=== PATIENT | male | born 1955 | race Caucasian/White ===

== ENCOUNTER → 2020-02-17 13:36 | Outpatient (BNVA) | payer MEDICARE, MEDICAID, SELFPAY | PROVIDERS: Family Provider Family Medicine; Referring Provider Nurse Practitioner Family; Visit Provider Urology | DX: R97.20 Elevated prostate specific antigen [PSA] (principal); R32 Unspecified urinary incontinence; Z80.42 Family history of malignant neoplasm of prostate | CPT/HCPCS: 81001; 84153 ==

== ENCOUNTER 2020-05-09 13:59 | Outpatient (CLI) | payer MEDICARE, MEDICAID, SELFPAY ==
--- NOTE | 2020-05-09 14:09 | USCV_ITS ---
LuDariusz Age: 64 Gender: M : 1955 Exam Date: 05/09/2020 14:00 Ordering Phys: Unruly Hernandez NP Technologist: [place] [facility] [place]ication: PVD RIGHT LEFT Brachial 152.00 mmHg Brachial 121.00 mmHg Pressure (mmHg) Waveform Pressure (mmHg) Waveform 118.00 PHILOSOPHY FACULTY MEMBER 126.00 114.00 DPA 134.00 0.78 Ankle/Brachial Index 0.88 88.00 Pre-Exercise Toe Pressure 96.00 0.58 Pre-Exercise Toe/Brachial Index 0.63 FINDINGS Diminished resting ABIs and TBIs bilaterally CONCLUSIONS Abnormal resting ABIs and TBIs bilaterally, suggestive of mild to moderate peripheral artery disease Dr Marylu Barroso MD FAC (Electronically Signed) Final Date: 10 May 2020 14:01 S
== END 2020-05-09 14:00 | disposition home or self-care (01) ==
LOC: US 14:00
PROVIDERS: Family Provider Family Medicine; Visit Provider Nurse Practitioner Family
DX: I73.9 Peripheral vascular disease, unspecified (principal)
CPT/HCPCS: 93922

== ENCOUNTER 2020-10-04 09:20 | Outpatient (CLI) | payer MEDICARE, MEDICAID, SELFPAY ==
--- NOTE | 2020-10-04 09:30 | FL_ITS ---
WS: [id number] Exam: FL barium swallow modified [id number] Date/Time of Exam: 10/04/2020 10:30 AM Reason For Exam: Other dysphagia Fluoroscopy time: 2.5 minutes Modified barium swallow was performed in conjunction with the speech therapy department. Swallowing function at the level of oropharynx was normal. The patient tolerated thin liquid, pudding consistency and solid barium mixture foodstuffs without evidence of aspiration or significant penetr ation. There was spasm of the mid and lower esophagus noted. Barium passed into the stomach without obstruction. FL/FL barium swallow modifd 91070 IMPRESSION: 1. Swallowing function was unremarkable at the level of the oropharynx. There w as no indication of aspiration or penetration into the laryngeal inlet. 2. Spasm of the mid and lower esophagus.
== END 2020-10-04 09:21 | disposition home or self-care (01) ==
LOC: RAD 09:26
PROVIDERS: PCP Nurse Practitioner Family; Visit Provider Specialist
DX: R13.10 Dysphagia, unspecified (principal)
CPT/HCPCS: 74230; 92611

== ENCOUNTER 2020-10-05 07:50 | Outpatient (CLI) | payer MEDICARE, MEDICAID, SELFPAY ==
--- NOTE | 2020-10-05 08:11 | FL_ITS ---
WS: [id number] ESOPHAGRAM TECHNIQUE: Double contrast examination was performed with thin and thick barium. Upright and GOMES imag es were obtained. CLINICAL INFORMATION: DYSPHAGIA COMPARISON: None. FINDINGS: Swallowing: Early spillage is noted with pooling the vallecula. No mohan aspiration. Small amount of penetration with thin liquids. Esophagus: No stricture or mass. Moderate esophageal dysmotility in the mid and distal esophagus with some delayed emptying. No significant hiatal hernia. Gastroesophageal reflux: Moderate reflux is visualized to the mid and upper esophagus on the supine i maging. Discomfort with the barium tablet swallowing although no significant delay in transit Fluoroscopy time: 3.4 minutes. FL/FL barium swallow 40571 IMPRESSION: 1. Early spillage with pooling the vallecula. No mohan aspiration. Small amoun t of penetration with thin barium. 2. Moderate dysmotility in the mid and distal esophagus with some delayed empt susanne 3. Moderate reflux visualized to the mid and upper esophagus on the supine anel ging. 4. No significant hiatal hernia. 5. No high-grade stricture or mass.
--- NOTE | 2020-10-05 08:11 | CT_ITS ---
WS: [id number] CT NECK TECHNIQUE: Contrast-enhanced CT of the neck with coronal and sagittal reformatted images. CLINICAL INFORMATION: DYSPHAGIA COMPARISON: CT neck 6 21,017 DLP: 2803.[address] scans at [facility] use at least one of these dose optimization techniques: automat ed exposure control; mA and/or kV adjustment per patient size (includes targeted exams where dose is matched to clinical indication); or iterative reconstruction. FINDINGS: Parotid glands are normal in appearance. Normal submandibular glands. Opacification of the right maxi llary sinus extending to the meatus unchanged since 2017. Chronic remodeling of the right maxillary s inus compatible with chronic sinusitis. Paranasal sinuses are otherwise well aerated. Mastoid air caleb ls are well aerated. Normal palatine tonsils. Normal parapharyngeal fat. Ballooning of the right piriform sinus with media l deviation of the right aryepiglottic fold on the breathing sequences suspicious for vocal cord para lysis. This has a more symmetric and normal appearance on the breath-hold sequences. Recommend correl ation with endoscopy. Normal epiglottis. Normal subglottic airway. No cervical lymphadenopathy. Normal thyroid gland. Partially visualized intracranial contents are nor mal. Chronic appearing lacunar infarcts in the left basal ganglia and right cerebellum. Cavernous car otid calcification. No cervical lymphadenopathy. Lung apices normal in appearance. Calcified mediastinal lymph nodes. Lung apices are well aerated. Ca lcified granuloma right upper lobe. Mild spondylitic changes. CT/CT neck w con* [id number] IMPRESSION: 1. Salivary glands are normal in appearance. 2. No cervical lymphadenopathy. 3. Ballooning of the right piriform sinus with medial deviation of the right a ryepiglottic fold on the breathing sequences suspicious for right vocal cord pa ralysis. This has a more normal appearance on the breath-hold imaging. Recommen d correlation with endoscopy. 4. No evidence of supraglottic or glottic mass. 5. Chronic opacification right maxillary sinus unchanged since 2017. Paranasal sinuses and mastoid air cells are otherwise well aerated.
[2020-10-05 08:30] LABS: Blood Urea Nitrogen 11 mg/dL (8-23)
[2020-10-05] MEDS: iohexol 300 mg/mL 100 mL Btl IV (08:42)
== END 2020-10-05 07:51 | disposition home or self-care (01) ==
PROVIDERS: PCP Nurse Practitioner Family; Visit Provider Specialist
DX: R13.10 Dysphagia, unspecified (principal)
CPT/HCPCS: 70491; 74220; 82565; 84520; Q9967

== ENCOUNTER 2020-11-16 11:13 | Outpatient (CLI) | payer MEDICARE, MEDICAID, SELFPAY ==
[2020-11-16 12:47] LABS: Basophils # 0.1 10^3/uL (0.0-0.1); Basophils % 0.8 %; Eosinophils # 0.1 10^3/uL (0.0-0.8); Eosinophils % 1.2 %; Hematocrit 44.8 % (42.0-52.0); Hemoglobin 14.9 g/dL (11.7-16.6); Lymphocytes # 3.7 10^3/uL (0.8-4.8); Lymphocytes % 41.2 %; Mean Corpuscular HGB Conc 33.3 g/dL (30.0-36.0); Mean Corpuscular Hemoglobin 30.7 pg (28.0-34.0); Mean Corpuscular Volume 92.2 fL (80-94); Monocytes # 0.6 10^3/uL (0.2-0.9); Neutrophils # 4.48 10^3/uL (1.8-7.7); Neutrophils % 49.6 %; Nucleated Red Blood Cells % 0 %; Platelet Count 304 10^3/cmm (130-400); Red Blood Count 4.86 10^6/uL (4.1-5.3); Red Cell Distribution Width 12.6 % (12.1-15.1)
--- NOTE | 2020-11-16 12:47 | ECG_ITS ---
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 Measurements Intervals [place] Rate: 74 P: 61 SC: 144 QRS: 45 QRSD: 105 T: 48 QT: 394 QTc: 439 Interpretive Statements SINUS RHYTHM Compared to ECG 04/30/2019 18:54:55 No significant changes Electronically Signed On 11-16-2020 15:08:56 SOAKING ROOM OPERATOR by Joey Hall M.D. [id number] f
[2020-11-16 13:07] LABS: Blood Urea Nitrogen 19 mg/dL (8-23); Carbon Dioxide 27 mmol/L (22-29); Chloride 103 mmol/L (98-107); Glucose 83 mg/dL (65-115); Osmolality Calculated 289 mOsm/kg (285-295); Sodium 139 mmol/L (136-145)
== END 2020-11-16 11:14 | disposition home or self-care (01) ==
PROVIDERS: PCP Nurse Practitioner Family; Visit Provider Specialist
DX: R13.19 Other dysphagia (principal)
CPT/HCPCS: 36415; 80048; 85025; 93005

== ENCOUNTER 2021-01-15 10:03 | Outpatient (CLI) | payer MEDICARE, MEDICAID, SELFPAY ==
--- NOTE | 2021-01-15 10:07 | US_ITS ---
WS: [id number] RIGHT UPPER QUADRANT ULTRASOUND HISTORY: RUQ ABDOMINAL TENDERNESS/WEIGHT LOSS COMPARISON: 07/16/2007 Liver: 12.9 cm in length. Normal size liver. No bile duct dilatation or mass. Gallbladder: Normally distended gallbladder with no stones or wall thickening. CBD: 0.5 cm Pancreas: Completely obscured by bowel gas. Right kidney: 9.2 cm in length. Normal size and echogenicity. No hydronephrosis or mass. Aorta and IVC: Unremarkable abdominal aorta and IVC. No ascites. US/US abdomen limited 71337 IMPRESSION: 1. Normal gallbladder. 2. No bile duct dilatation. 3. Nonvisualization of the pancreas.
== END 2021-01-15 10:04 | disposition home or self-care (01) ==
LOC: RAD 10:05
PROVIDERS: PCP Nurse Practitioner Family; Visit Provider Family Medicine
DX: R10.811 Right upper quadrant abdominal tenderness (principal); R63.4 Abnormal weight loss
CPT/HCPCS: 76705

== ENCOUNTER → 2021-01-31 10:12 | Outpatient (BNVA) | payer MEDICARE, MEDICAID, SELFPAY | PROVIDERS: PCP Nurse Practitioner Family; Referring Provider Family Medicine; Visit Provider Urology | DX: R32 Unspecified urinary incontinence (principal); N20.1 Calculus of ureter; R97.20 Elevated prostate specific antigen [PSA]; Z80.42 Family history of malignant neoplasm of prostate; N40.1 Benign prostatic hyperplasia with lower urinary tract symptoms | CPT/HCPCS: 81003 ==

== ENCOUNTER → 2021-02-21 09:04 | Outpatient (BNVA) | payer MEDICARE, MEDICAID, SELFPAY | PROVIDERS: PCP Nurse Practitioner Family; Visit Provider Urology | DX: N40.1 Benign prostatic hyperplasia with lower urinary tract symptoms (principal) | CPT/HCPCS: 81003 ==

== ENCOUNTER → 2021-03-01 11:05 | Outpatient (BNVA) | payer MEDICARE, MEDICAID, SELFPAY | PROVIDERS: PCP Nurse Practitioner Family; Visit Provider Surgery | DX: Z12.11 Encounter for screening for malignant neoplasm of colon (principal); Z20.822 Contact with and (suspected) exposure to COVID-19 | CPT/HCPCS: 87635 ==

== ENCOUNTER 2021-03-06 09:20 | Day surgery (SDC) | payer MEDICARE, MEDICAID, SELFPAY ==
[2021-03-02 14:13] VITALS: BMI 24.7
--- NOTE | 2021-03-06 09:44 | ANES.PREANE2 ---
Pre-Anesthetic Assessment Pre-Anesthetic Assessment: Height/Weight: Height 1.68 m Weight 69.4 kg Preop Diagnosis: screening colonoscopy Proposed Procedure: Operation Date: 03/06/21 11:00 Proposed Procedures p Colonoscopy 02986 Z12.11(Not Applicable) - Freddie Harris MD Was Beta Beltran taken within 24 hours: Yes Was Clonidine taken within 24 hours: N/A Social: Social History: Tobacco and No alcohol Exam: Pre-Anes Outpt Exam: alert, oriented x 3 and regular rate & rhythm Additional Exam Findings (including area of procedure): rhonchi Airway: Submandibular: WNL Cervical ROM: WNL MP: 2 Dentition: False (upper) Additional comments: Poor dentitioin, missing several, hoarseness Pulmonary: Pulmonary: COPD CV/HEM: CV/HEM: HTN and PVD GI: GI: GERD Neuropsych: Neuropsych: CVA (Left weakness) Anesthetic Plan: ASA status: 3 Anesthesia: MAC Risk of > 500 ml blood loss (7ml/kg in children): No PFSH Anesthesia PFSH: Medical History COPD (chronic obstructive pulmonary disease) CVA (cerebral vascular accident) Depression Elevated PSA GERD (gastroesophageal reflux disease) HTN (hypertension) Hypothyroid Osteoarthritis Surgical History H/O carpal tunnel repair Family History Father , AT AGE 71 Myocardial infarction (lateral wall) Hyperlipidemia Brain tumor Mother , AT AGE 58 Hyperlipidemia Headache, migraine History of heart attack Brother Cancer COLON Social History Smoking and tobacco status: former smoker Alcohol intake: never Marital status: Life Partner Current occupational status: disabled History of recent travel: No Data Anesthesia Cardiac Studies: No Data to Display
[2021-03-06 10:07] VITALS: BP 118/71; PULSE 62; RESP 16; TEMP 36.1; O2SAT 97
[2021-03-06] MEDS: sodium chloride 0.9% 1,000 ML 30 ML IV (10:19)
--- NOTE | 2021-03-06 12:06 | W.PM.OPSUD ---
Surgery/Procedure H&P Update DATE OF PROCEDURE: March 06, 2021 DATE H&P PERFORMED: 02/19/21 H&P UPDATE INFORMATION: I have reviewed H&P completed within last 30 days, I have examined patient prior to procedure and No changes to prior documentation PREOP DIAGNOSIS: screening colonoscopy PLANNED PROCEDURE: Operation Date: 03/06/21 11:00 Proposed Procedures p Colonoscopy 48859 Z12.11(Not Applicable) - Freddie Harris MD
[2021-03-06 12:22] VITALS: BP 81/60; PULSE 70; RESP 18; TEMP 36.6; O2SAT 99
[2021-03-06 12:41] VITALS: BP 101/78; PULSE 72; RESP 16; O2SAT 96
--- NOTE | 2021-03-06 13:10 | ANE.PACU2 ---
Inpatient post-anesthesia follow up: Airway intact: Yes Vital signs: Temperature 97.9 F Pulse Rate 72 Respiratory Rate 16 Blood Pressure 101/78 Pulse Oximetry 96 Oxygen Delivery Me thod Room Air Oxygen Flow Rate Fraction of Inspir ed Oxygen Hydration adequate: Yes Mental status: Baseline
== END 2021-03-06 12:23 | disposition home or self-care (01) ==
PROVIDERS: PCP Nurse Practitioner Family; Visit Provider Surgery
PROC: 0DJD8ZZ Inspection of Lower Intestinal Tract, Via Natural or Artificial Opening Endoscopic (ICD-10-PCS; CPT 45378; principal; 2021-03-06 11:00)
DX: Z12.11 Encounter for screening for malignant neoplasm of colon (principal); K57.30 Diverticulosis of large intestine without perforation or abscess without bleeding; J44.9 Chronic obstructive pulmonary disease, unspecified; I10 Essential (primary) hypertension; K21.9 Gastro-esophageal reflux disease without esophagitis; I69.854 Hemiplegia and hemiparesis following other cerebrovascular disease affecting left non-dominant side; M19.90 Unspecified osteoarthritis, unspecified site; E03.9 Hypothyroidism, unspecified; F32.9 Major depressive disorder, single episode, unspecified; Z87.891 Personal history of nicotine dependence; Z79.82 Long term (current) use of aspirin
CPT/HCPCS: 96360; 96361; G0121; J7030

== ENCOUNTER 2021-05-13 11:26 | Emergency (ER) | payer MEDICARE, MEDICAID, SELFPAY ==
[2021-05-13 11:31] VITALS: BP 128/76; PULSE 69; RESP 16; TEMP 36.8; O2SAT 93; BMI 24.2
--- NOTE | 2021-05-13 11:38 | XRR_ITS ---
PROCEDURE INFORMATION: Exam: XR Chest Exam date and time: 05/13/2021 11:38 AM Age: 65 years old Clinical indication: Pain; Chest pressure; Additional info: Cp, presyncope TECHNIQUE: Imaging protocol: XR of the chest. Views: 1 view. COMPARISON: CR Chest 1 [place] [id number] 04/30/2019 7:02 PM FINDINGS: Lungs: Stable calcified bilateral hilar nodes and/or mediastinal nodes and/or lung granulomas consistent with old granulomatous disease. Moderately hyperaerated lungs consistent with deep inspiratory effort vs significant reactive airway disease vs moderate COPD . Pleural spaces: Unremarkable. No pleural effusion. No pneumothorax. Heart/Mediastinum: Unremarkable. No cardiomegaly. Bones/joints: Moderate thoracic spondylosis. XR/XR chest 1V portable [id number] IMPRESSION: Moderately hyperaerated lungs consistent with deep inspiratory effort vs significant reactive airway disease vs moderate COPD .
--- NOTE | 2021-05-13 11:38 | ECG_ITS ---
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 Measurements Intervals [place] Rate: 59 P: 78 MD: 133 QRS: 76 QRSD: 86 T: 74 QT: 420 QTc: 417 Interpretive Statements SINUS BRADYCARDIA WITH SINUS ARRHYTHMIA Compared to ECG 11/16/2020 11:51:07 Sinus rhythm no longer present Electronically Signed On 05-14-2021 21:03:36 CDT by Marylu Barroso M.D. [email or web address] [email or web address]/OM/[id number]
--- NOTE | 2021-05-13 11:41 | ED_ITS ---
HPI - Chest Pain General: Chief Complaint: Chest Pain Stated Complaint: NEAR SYNCOPE; CHEST PAIN Time Seen by Provider: 05/13/21 11:28 Source: patient Mode of arrival: EMS Limitations: no limitations History of Present Illness: HPI narrative: Patient is a 65-year-old male with a history of hypertension, COPD, prior CVA who presents to the emergency department with a near syncopal episode. Symptoms started when the patient got up to have breakfast and noticed severe epigastric/retrosternal chest pain got very dizzy and presyncopal. Pain radiates to his back. No nausea or diaphoresis. He complains of generalized weakness. MD complaint: chest pain Onset (ago): hour(s) (1) Timing of current episode: constant Prior episodes: No Onset: during rest Pain location: substernal Pain radiation: back Severity: severe Quality: sharp Relieving factors: nothing Exacerbating factors: nothing Associated symptoms: Reports abdominal pain; Deny diaphoresis, dyspnea, fever(s), leg edema, nausea, palpitations, sense of impending doom, syncope or vomiting Treatment prior to arrival: none Review of Systems General: Reports: 10 or more systems reviewed and unremarkable except in HPI and below Const: Denies: fever(s) or diaphoresis Card: Denies: palpitations or syncope Resp: Denies: dyspnea GI: Reports: abdominal pain; Denies: nausea or vomiting [facility] ED PFSH: Medical History COPD (chronic obstructive pulmonary disease) CVA (cerebral vascular accident) Depression Elevated PSA GERD (gastroesophageal reflux disease) HTN (hypertension) Hypothyroid Osteoarthritis Surgical History H/O carpal tunnel repair Hx of colonoscopy (03/06/21) Diverticulosis-10 years Family History Father , AT AGE 71 Myocardial infarction (lateral wall) Hyperlipidemia Brain tumor Mother , AT AGE 58 Hyperlipidemia Headache, migraine History of heart attack Brother Cancer COLON Social History Smoking and tobacco status: former smoker Alcohol intake: never Marital status: Life Partner Current occupational status: disabled History of recent travel: No Physical Exam Const: COMMON NORMALS: no acute distress, average body habitus, patient oriented x3, no limitations, healthy appearing, alert and well nourished HENMT: COMMON NORMALS: normocephalic, atraumatic and moist oral mucous membranes HEAD & SCALP: normocephalic and atraumatic Neck/C-Spine: COMMON NORMALS: no meningeal signs and no JVD Chest: COMMONS NORMALS: normal inspection of the chest and normal palpation of entire chest wall Resp: COMMON NORMALS: normal respiratory effort, No retractions, No use of accessory muscles, clear to auscultation bilaterally and percussion normal AUSCULTATION: clear to auscultation bilaterally PERCUSSION: percussion normal Cardio: COMMON NORMALS: no JVD, regular rate, regular rhythm, S1 normal heart sound present, S2 normal heart sound present, No gallops present (Cardio), No clicks present (Cardio), No murmurs present (Cardio), No rub (Cardio) and Peripheral pulses 2+ throughout RATE: regular rate RHYTHM: regular rhythm HEART SOUNDS: S1 normal heart sound present and S2 normal heart sound present PERIPHERAL PULSES: Peripheral pulses 2+ throughout GI: COMMON NORMALS: Normal to inspection, nondistended, normoactive bowel sounds present, Soft to palpation, non-tender, No hepatosplenomegaly present, no masses and no bruits PALPATION: Yes Soft to palpation and Yes No hepatosplenomegaly present Extremity: COMMON NORMALS: normal to inspection, full ROM, capillary refill normal, no calf tenderness and no pedal edema Neuro: COMMON NORMALS: patient oriented x3 and no focal motor deficits SENSORIUM/ORIENTATION: Yes alert MENINGEAL SIGNS: Yes no meningeal signs CRANIAL NERVES: Yes CN normal except as noted OTHER: Nonfocal neurologic exam. He has reduced sensation on both sides of his face but no other cranial nerve abnormalities noted. No focal weakness. No drift in upper or lower extremities. Skin: COMMON NORMALS: no rashes or lesions noted, no wounds, turgor normal, no jaundice, no petechiae and no mottling GENERAL SKIN EXAM: no rashes or lesions noted and turgor normal Course Reevaluation(s): Reevaluation #1: Discussed lab and imaging findings with him. Mildly elevated baseline troponin but with a flat delta at 2 hours. We will discharge him home and he is to obtain an outpatient stress test. Will discharge him home with no new orders. He voiced understanding and he is in agreement with the plan. Time: 15:12 Vital Signs: Vital signs: Vital Signs Temperature 98.2 F 05/13/21 11:31 Pulse Rate 64 05/13/21 14:11 Respiratory Rate 16 05/13/21 14:11 Blood Pressure 117/64 05/13/21 14:11 Pulse Oximetry 96 05/13/21 14:11 MDM - Chest Pain MDM Narrative: Medical decision making narrative: 65-year-old male who presents to the emergency department with complaints of chest pain. Evaluation in the emergency department is unremarkable with a mildly elevated baseline troponin and a flat 2-hour delta. Heart score is a 4 meaning he is a moderate risk, he has a 17% risk of a major adverse cardiac event within the next 6 weeks. He is ordered an outpatient stress test. Lab Data: Labs: Lab Results 05/13/21 05/13/21 05/13/21 Range/Units 12:20 12:20 12:20 WBC 9.3 (4.0-10.0) 10^3/ uL RBC 4.84 (4.1-5.3) 10^6/u L Hgb 14.9 (11.7-16.6) g/dL Hct 43.9 (42.0-52.0) % MCV 90.7 (80-94) fL MCH 30.8 (28.0-34.0) pg MCHC 33.9 (30.0-36.0) g/dL RDW 12.4 (12.1-15.1) % Plt Count 253 (130-400) 10^3/c mm MPV 10.6 H (7.4-10.4) fL Neut % (Auto) 73.8 % Lymph % (Auto) 19.7 % [place] % (Auto) 5.1 % Eos % (Auto) 0.6 % Baso % (Auto) 0.6 % Neut # (Auto) 6.82 (1.8-7.7) 10^3/u L Lymph # (Auto) 1.8 (0.8-4.8) 10^3/u L [place] # (Auto) 0.5 (0.2-0.9) 10^3/u L Eos # (Auto) 0.1 (0.0-0.8) 10^3/u L Baso # (Auto) 0.1 (0.0-0.1) 10^3/u L Nucleated RBC % (a uto) 0 % Nucleated RBCs # 0.0 /100WBC D-Dimer (0-0.59) ug/mIFE U Sodium 143 (136-145) mmol/L Potassium 4.2 (3.5-5.1) mmol/L Chloride 107 (98-107) mmol/L Carbon Dioxide 24 (22-29) mmol/L Anion Gap 16.2 (5-19) BUN 14 (8-23) mg/dL Creatinine 1.1 (0.7-1.2) mg/dL GFR Calculation 67.2 L (90-130) mL/min Glucose 129 H (65-115) mg/dL Calculated Osmolal ity 298 H (285-295) mOsm/k g Calcium 8.9 (8.5-10.5) mg/dL Total Bilirubin 0.5 (0.15-1.2) mg/dL AST 22 (0-40) U/L ALT 13 (0-41) U/L Alkaline Phosphata se 96 (40-130) IU/L Creatine Kinase 97 (39-308) U/L Troponin T Baselin e 19 H (0-15) ng/L Troponin T 120 Min luis f (0-15) ng/L Delta Troponin T (0-10) ABS# NT-Pro-B Natriuret Pep 182 H (0-125) pg/mL Total Protein 6.1 L (6.6-8.7) g/dL Albumin 3.9 (3.5-5.2) g/dL Globulin 2.2 (1.3-4.6) g/dL Lipase 34 (13-60) U/L 05/13/21 05/13/21 Range/Units 12:45 14:27 WBC (4.0-10.0) 10^3/ uL RBC (4.1-5.3) 10^6/u L Hgb (11.7-16.6) g/dL Hct (42.0-52.0) % MCV (80-94) fL MCH (28.0-34.0) pg MCHC (30.0-36.0) g/dL RDW (12.1-15.1) % Plt Count (130-400) 10^3/c mm MPV (7.4-10.4) fL Neut % (Auto) % Lymph % (Auto) % [place] % (Auto) % Eos % (Auto) % Baso % (Auto) % Neut # (Auto) (1.8-7.7) 10^3/u L Lymph # (Auto) (0.8-4.8) 10^3/u L [place] # (Auto) (0.2-0.9) 10^3/u L Eos # (Auto) (0.0-0.8) 10^3/u L Baso # (Auto) (0.0-0.1) 10^3/u L Nucleated RBC % (a uto) % Nucleated RBCs # /100WBC D-Dimer 0.34 (0-0.59) ug/mIFE U Sodium (136-145) mmol/L Potassium (3.5-5.1) mmol/L Chloride (98-107) mmol/L Carbon Dioxide (22-29) mmol/L Anion Gap (5-19) BUN (8-23) mg/dL Creatinine (0.7-1.2) mg/dL GFR Calculation (90-130) mL/min Glucose (65-115) mg/dL Calculated Osmolal ity (285-295) mOsm/k g Calcium (8.5-10.5) mg/dL Total Bilirubin (0.15-1.2) mg/dL AST (0-40) U/L ALT (0-41) U/L Alkaline Phosphata se (40-130) IU/L Creatine Kinase (39-308) U/L Troponin T Baselin e (0-15) ng/L Troponin T 120 Min luis f 14.01 (0-15) ng/L Delta Troponin T -4.99 L (0-10) ABS# NT-Pro-B Natriuret Pep (0-125) pg/mL Total Protein (6.6-8.7) g/dL Albumin (3.5-5.2) g/dL Globulin (1.3-4.6) g/dL Lipase (13-60) U/L Imaging Data^: CXR: Attestation: I personally reviewed and interpreted this imaging study as follows: Radiologist's impression: [id number] [place], [place] [address]FM[address] ReportSigned Patient: Dariusz Leigh #: [id number]: 5Acct#:[id number]/Sex: 65 / MADM Date: 05/13/21Loc: ERRoom/Bed: Attending Dr: Ordering Provider/Ordering MD: Ruth Rodriguez MD, [facility] [place] Date of Service: 05/13/21 Procedure(s): XR chest 1V portable [id number] Accession Number(s): [id number] Report Number: [id number] PROCEDURE INFORMATION: Exam: XR Chest Exam date and time: 05/13/2021 11:38 AM Age: 65 years old Clinical indication: Pain; Chest pressure; Additional info: Cp, presyncope TECHNIQUE: Imaging protocol: XR of the chest. Views: 1 view. COMPARISON: CR Chest 1 [place] [id number] 04/30/2019 7:02 PM FINDINGS: Lungs: Stable calcified bilateral hilar nodes and/or mediastinal nodes and/or lung granulomas consistent with old granulomatous disease. Moderately hyperaerated lungs consistent with deep inspiratory effort vs significant reactive airway disease vs moderate COPD . Pleural spaces: Unremarkable. No pleural effusion. No pneumothorax. Heart/Mediastinum: Unremarkable. No cardiomegaly. Bones/joints: Moderate thoracic spondylosis. XR/XR chest 1V portable [id number] IMPRESSION: Moderately hyperaerated lungs consistent with deep inspiratory effort vs significant reactive airway disease vs moderate COPD . Dictated By:Dariusz Chatman MDSigned By:Dariusz Chatmna MDSigned Date/Time:05/13/21 1341DD/ 1339 EKG Data^: EKG 1: Attestation: I personally reviewed and interpreted this EKG as follows: EKG interpretation date: 05/13/21 EKG interpretation time: 12:01 Prior EKG tracings: not available for review Interpretation: Sinus bradycardia with sinus arrhythmia. Heart rate [address] changes. EKG 2: Attestation: I personally reviewed and interpreted this EKG as follows: EKG interpretation date: 05/13/21 EKG interpretation time: 13:31 Prior EKG tracings: available for review Interpretation: Sinus rhythm. Heart rate [address] changes. No significant change from earlier Discharge Plan Discharge Patient Disposition: Home Clinical Impression: Near syncope Chest pain Qualifiers: Chest pain type: unspecified Qualified Code(s): R07.9 - Chest pain, unspecified Condition: Stable Prescriptions: Continued albuterol 90 mcg/actuation aerosol 90 mcg INHALATION .PRN RF: 0 ipratropium-albuterol 18-103 mcg/actuation aerosol 18 spray INHALATION QID RF: 0 fluticasone propion-salmeterol [Advair Diskus] 250-50 mcg/dose blister with device 1 inh INHALATION BID RF: 0 fluticasone propionate 50 mcg/actuation spray,suspension 1 spray INTRANASAL DAILY RF: 0 aspirin 325 mg tablet 325 mg PO DAILY RF: 0 omeprazole 20 mg capsule,delayed release(DR/EC) 20 mg PO BID RF: 0 amlodipine 5 mg tablet 5 mg PO DAILY RF: 0 simvastatin 20 mg tablet 20 mg PO DAILY RF: 0 levothyroxine 50 mcg tablet 50 mcg PO DAILY RF: 0 citalopram 10 mg tablet 10 mg PO DAILY RF: 0 metoprolol succinate 50 mg tablet extended release 24 hr 50 mg PO DAILY RF: 0 Discharge Orders: Discharge ED (Routine); Ordered 05/13/21 Ordered By: Ruth Rodriguez Referrals: Unruly Hernandez NP [Primary Care Provider] - 1-3 days Discharge Diet: Usual diet Discharge Activity: Increase activity as tolerated Patient Instructions: Chest Pain (ED), Near Syncope (ED) Activity Restrictions/Additional Instructions: Return for any new or worsening symptoms. Follow-up with your primary care provider within 3 days. You will be contacted by case management to schedule a stress test to further evaluate your heart. Continue your home medications. Coding Level of Care Code ED Retanner for Isidrog Fwd Exam Comprehensive
[2021-05-13 12:29] VITALS: BP 114/48; PULSE 68; RESP 16; O2SAT 94
[2021-05-13 12:38] LABS: Basophils # 0.1 10^3/uL (0.0-0.1); Basophils % 0.6 %; Eosinophils # 0.1 10^3/uL (0.0-0.8); Eosinophils % 0.6 %; Hematocrit 43.9 % (42.0-52.0); Hemoglobin 14.9 g/dL (11.7-16.6); Lymphocytes # 1.8 10^3/uL (0.8-4.8); Lymphocytes % 19.7 %; Mean Corpuscular HGB Conc 33.9 g/dL (30.0-36.0); Mean Corpuscular Hemoglobin 30.8 pg (28.0-34.0); Mean Corpuscular Volume 90.7 fL (80-94); Mean Platelet Volume 10.6 fL (7.4-10.4); Monocytes # 0.5 10^3/uL (0.2-0.9); Monocytes % 5.1 %; Neutrophils # 6.82 10^3/uL (1.8-7.7); Neutrophils % 73.8 %; Nucleated Red Blood Cells % 0 %; Platelet Count 253 10^3/cmm (130-400); Red Blood Count 4.84 10^6/uL (4.1-5.3); Red Cell Distribution Width 12.4 % (12.1-15.1); White Blood Count 9.3 10^3/uL (4.0-10.0)
[2021-05-13 12:58] LABS: Troponin(5th) Baseline 19 ng/L (0-15)
[2021-05-13 13:06] LABS: Alanine Aminotransferase 13 U/L (0-41); Albumin Level 3.9 g/dL (3.5-5.2); Alkaline Phosphatase 96 IU/L (40-130); Blood Urea Nitrogen 14 mg/dL (8-23); Calcium 8.9 mg/dL (8.5-10.5); Carbon Dioxide 24 mmol/L (22-29); Chloride 107 mmol/L (98-107); Creatine Phosphokinase 97 U/L (39-308); Globulin 2.2 g/dL (1.3-4.6); Glomerular Filtration Rate 67.2 mL/min (90-130); Glucose 129 mg/dL (65-115); Lipase 34 U/L (13-60); NT Pro B Type Natriuretic Pept 182 pg/mL (0-125); Osmolality Calculated 298 mOsm/kg (285-295); Sodium 143 mmol/L (136-145); Total Bilirubin 0.5 mg/dL (0.15-1.2); Total Protein 6.1 g/dL (6.6-8.7)
[2021-05-13 13:09] LABS: D Dimer 0.34 ug/mIFEU (0-0.59)
[2021-05-13 13:11] LABS: Anion Gap 16.2 (5-19); Aspartate Amino Transferase 22 U/L (0-40); Potassium 4.2 mmol/L (3.5-5.1)
--- NOTE | 2021-05-13 13:38 | ECG_ITS ---
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 Measurements Intervals [place] Rate: 60 P: 59 [place]: 133 QRS: 60 QRSD: 97 T: 63 QT: 436 QTc: 437 Interpretive Statements SINUS RHYTHM Compared to ECG 05/13/2021 11:59:51 Sinus bradycardia no longer present Sinus arrhythmia no longer present Electronically Signed On 05-14-2021 21:23:18 CDT by Marylu Barroso M.D. [id number]
[2021-05-13 14:11] VITALS: BP 117/64; PULSE 64; RESP 16; O2SAT 96
[2021-05-13 14:58] LABS: Troponin 5 2HR 14.01 ng/L (0-15)
[2021-05-13 15:19] LABS: Troponin 5 2HR Delta -4.99 ABS# (0-10)
--- NOTE | 2021-05-15 08:33 | PC.SOCIAL ---
Addendum entered by Cristal Everett RN 05/16/21 07:51: Patient is scheduled for 06/04/2021 to have stress test. Original Note: Order for nuclear stress test sent to [facility] scheduling per Dr Rodriguez with confirmation received that the fax was sent successfully.
--- NOTE | 2021-05-30 14:43 | DCPLANNER ---
Patient had an outpatient stress test scheduled for 21 - patient did attend appointment.
== END 2021-05-13 15:40 | disposition home or self-care (01) ==
PROVIDERS: Emergency Provider Family Medicine; PCP Nurse Practitioner Family
DX: R07.9 Chest pain, unspecified (principal); R55 Syncope and collapse; Z79.82 Long term (current) use of aspirin; J44.9 Chronic obstructive pulmonary disease, unspecified; Z86.73 Personal history of transient ischemic attack (TIA), and cerebral infarction without residual deficits; I10 Essential (primary) hypertension; Z87.891 Personal history of nicotine dependence
CPT/HCPCS: 36415; 71045; 80053; 82550; 83690; 83880; 84484; 85025; 85378; 93005; 99284

== ENCOUNTER 2021-05-24 10:01 | Outpatient (CLI) | payer MEDICARE, MEDICAID, SELFPAY ==
[2021-05-24 10:08] VITALS: BMI 21.9
--- NOTE | 2021-05-24 10:19 | ECG_ITS ---
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 The perfusion scan will be documented separately. DATA: Baseline heart rate was 52 beats per minute. Baseline blood pressure was 126/89 millimeters of mercury. Target heart rate was 155. Maximum heart rate achieved was 99. which was 63 % of the predicted target heart rate. Maximum blood pressure was 146/89 millimeters of mercury. The reason for ending the test was completion of the protocol. The patient did not experience any symptoms. ELECTROCARDIOGRAM: BASELINE: Sinus rhythm. Normal axis. Otherwise, no ST-T changes suggestive of ischemia noted. No arrhythmia noted. EXERCISE: After Lexiscan injection, no ST-T changes suggestive of ischemic noted. No arrhythmia noted. 1. EKG not suggestive of ischemia 2. Lexiscan injection unremarkable. 3. Perfusion scan will be documented separately. Electronically Signed On 05-25-2021 14:37:53 CDT by LUANNE COLLINS [id number]
--- NOTE | 2021-05-24 10:20 | NMCV_ITS ---
NM mayelin perf SPECT r/s* [id number] Dariusz Leigh Age: 65 Gender: M : 1955 Exam Date: 05/24/2021 11:10 Ordering Phys: Ruth Rodriguez MD [facility] Technologist: BETZAIDA Starr Exam Location: [facility] Indications: CHEST PAIN STRESS TEST Please see separate stress test report in [facility] for full findings IMAGE PROTOCOL Rest/Stress 1 Lexiscan Day Radiopharmaceutical Dose (mCi) Administration Site Administered by Rest: Tc-99m 10.7 IV BETZAIDA Anthony Sestamibi Stress:Tc-99m 32.5 IV BETZAIDA Starr Sestamisandi Rest: 24-May-2021 60 Discovery 630 Stress: 24-May-2021 30 Discovery 630 0.4mg Lexiscan. Images obtained in supine and prone position. SPECT RESULTS Technical Quality: Excellent Raw Data Analysis: Normal Image Corrections: No attenuation or motion correction applied Summed Stress Score: 0 Summed Rest Score: 1 Summed Difference Score: 0 PERFUSION FINDINGS Medium-sized area of patchy decreased tracer uptake noted in basal to distal inferior wall suggestive of old myocardial infarction versus scarring. In the absence of wall motion abnormality cannot rule out artifact FUNCTIONAL RESULTS (calculated via Gated SPECT) Stress Image LV EF (%): 81 Stress EDV (mL):62 TID: 1.05 Stress ESV (mL):12 Rest Image LV EF (%): 81 FUNCTIONAL FINDINGS: There is normal left ventricular systolic function. IMPRESSIONS This study is negative for ischemia. EKG segment will be documented separately. Stanley Stafford MD (Electronically Signed) Final Date: 24 May 2021 14:12 S
[2021-05-24] MEDS: regadenoson 0.4 Mg/5 ml Syringe IVP (13:10)
[2021-05-24 13:21] VITALS: BP 131/78; PULSE 78
== END 2021-05-24 10:02 | disposition home or self-care (01) ==
LOC: CDL 10:06
PROVIDERS: PCP Nurse Practitioner Family; Visit Provider Family Medicine
DX: R07.9 Chest pain, unspecified (principal)
CPT/HCPCS: 78452; 93017; A9500; J2785

== ENCOUNTER 2021-06-25 08:56 | Outpatient (CLI) | payer MEDICARE, MEDICAID, SELFPAY ==
[2021-06-25 09:35] LABS: Basophils # 0.1 10^3/uL (0.0-0.1); Basophils % 0.5 %; Eosinophils # 0.1 10^3/uL (0.0-0.8); Eosinophils % 1.3 %; Hematocrit 44.3 % (42.0-52.0); Hemoglobin 14.6 g/dL (11.7-16.6); Lymphocytes # 3.5 10^3/uL (0.8-4.8); Lymphocytes % 36.7 %; Mean Corpuscular Hemoglobin 30.7 pg (28.0-34.0); Mean Corpuscular Volume 93.3 fL (80-94); Mean Platelet Volume 9.6 fL (7.4-10.4); Monocytes # 0.9 10^3/uL (0.2-0.9); Monocytes % 9.4 %; Neutrophils # 4.89 10^3/uL (1.8-7.7); Neutrophils % 51.9 %; Nucleated Red Blood Cells % 0 %; Platelet Count 277 10^3/cmm (130-400); Red Blood Count 4.75 10^6/uL (4.1-5.3); White Blood Count 9.4 10^3/uL (4.0-10.0)
[2021-06-25 10:15] LABS: Blood Urea Nitrogen 20 mg/dL (8-23); Calcium 8.8 mg/dL (8.5-10.5); Carbon Dioxide 28 mmol/L (22-29); Chloride 105 mmol/L (98-107); Glomerular Filtration Rate 60.8 mL/min (90-130); Glucose 92 mg/dL (65-115); Osmolality Calculated 296 mOsm/kg (285-295); Sodium 142 mmol/L (136-145)
== END 2021-06-25 08:57 | disposition home or self-care (01) ==
PROVIDERS: PCP Nurse Practitioner Family; Visit Provider Internal Medicine Cardiovascular Disease
DX: Z01.818 Encounter for other preprocedural examination (principal); R07.9 Chest pain, unspecified
CPT/HCPCS: 36415; 80048; 85025; 87635

== ENCOUNTER 2021-06-29 05:32 | Day surgery (SDC) | payer MEDICARE, MEDICAID, SELFPAY ==
[2021-06-28 08:38] VITALS: BMI 22.4
[2021-06-29] VITALS (29 sets, daily range): BP systolic 107–171; BP diastolic 65–104; PULSE 60–80; RESP 12–21; TEMP 36.7; O2SAT 94–97; BMI 22.4
--- NOTE | 2021-06-29 06:00 | XACV_ITS ---
Ht: 168 cm Wt: 63 kg BSA: 1.72 m2 Gender: Male : 1955 Any Known Allergies: No known allergies Exam Priority: Routine Procedure(s): Procedure Description: Diagnostic procedure Procedure Description: PCI procedure Procedure Description: Drug Eluting Coronary Stent Procedure Description: PTCA Procedure Description: Miscellaneous Procedure Description: ACT Procedure Description: Coronary Angiography Diagnostic Cath Status: Elective Diagnostic Findings * Medium sized OM 2 branch has significant 80% stenosis in the proximal part. * No disease noted in the Left Main, Left Anterior Descending, Right, or Circumflex coronary arteries. * Second Obtuse Marginal Branch Segment: obstructive 70% stenosis, ISA: 3 flow. * Coronary angiography shows co-dominance. PCI Status: Elective PCI Indication: Other Interventional Findings * Procedure Detail: We engaged left main artery with XB 3.5 guide catheter. IV heparin was administered to maintain an ACT above 250 seconds. A 0.014 run-through guidewire was used to cross the stenosis and was placed in distal OM 2. We used 2.0 x 12 mm semicompliant balloon to predilate the stenosis. It could not completely cross the lesion distally. This was followed by balloon angioplasty with a 2.5 x 12 mm semicompliant balloon. Following this we attempted to place the stent however stent could not be crossed. Given the size of the vessel was small to medium sized, we decided on medical therapy and aborted further attempts at placing a stent. Final angiogram showed residual stenosis. Guidewire and guide catheter were removed. 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 * Second Obtuse Marginal Branch Segment: 70% stenosis treated with a MDT SPRINTER 2.34K16UN BALLOON, AB TREK 2.25X12 RX BALLOON, and AB MINI TREK 2.00X12 RX BALLOON. 0% residual stenosis, ISA: 3 flow. Conclusions 1. Second Obtuse Marginal Branch had severe proximal stenosis. This was a small to medium sized vessel. Balloon angioplasty was performed however stent could not be delivered.. 2. No disease noted in the Left Main, Left Anterior Descending, Right, or Circumflex coronary arteries. Recommendations * Continue aspirin and Plavix. * High intensity statin therapy. * Aggressive risk factor modification. * Outpatient follow-up with cardiology in 1 month. Interventional RX Recommendation: PCI w/o planned CABG Diagnostic RX Recommendation: PCI w/o planned CABG Anticoagulation: Heparin Pressures Phase:Rest AO : 145 / 90 ( 111 ) @ 6:44:00 AM 183 / 109 ( 124 ) @ 6:44:00 AM 165 / 68 ( 94 ) @ 6:46:00 AM 159 / 88 ( 115 ) @ 6:54:00 AM 148 / 80 ( 109 ) @ 6:54:00 AM 155 / 79 ( 111 ) @ 7:06:00 AM 133 / 91 ( 111 ) @ 7:09:00 AM 114 / 47 ( 82 ) @ 7:21:00 AM 152 / 77 ( 108 ) @ 7:32:00 AM 157 / 79 ( 112 ) @ 7:36:00 AM Clinical Evaluation EBL: 5mL-10mL Procedural Details Procedure Consent Obtained. Current Diagnosis : Chest Pain. Pre-Procedure Time Out. Identified patient by full name and date of as verbalized by the patient/guarantor. Does the consent match the physician's order: Yes. Accurate & Complete Informed Consent: Yes. Inpatient/Outpatient History & Physical on Chart: Yes. If H&P is completed, is and addenduem needed: No; If yes, is the addendum complete: N/A. Visualize and Verify Site with Patient/Guarantor: N/A. Relevant Radiology Images available: Yes. Pre-op teaching completed and patient verbalized understanding. The risks, benefits, and alternatives of sedation and/or procedure were discussed by physician. The patient agrees to continue. Procedure started. [facility] Clinical Fraility Score: 3: Managing Well. Electronics Research Engineer Indications: Worsening Angina. Chest Pain Symptom Assessment: Typical Angina Symptoms. Correct patient, site and procedure confirmed by cath team. Current diagnosis: Chest Pain. PERRLA. Strong, equal hand document imaging specialist bilaterally. Lungs clear x 5 lobes. IV Site on Arrival: 18 gauge in the left anticubital. IV Fluids: 0.9% NaCl at KVO. 0 mL infused prior to laborer pie bakery. Pre Procedural Pulses: bilateral dorsalis pedis was Doppled. Pre Procedural Pulses: right radial was 2+. Oxygen started at 2liters/min via nasal canula. right groin was prepped with chloroprep then draped in the usual sterile fashion. right radial was prepped with chloroprep then draped in the usual sterile fashion. Physician notified. Baseline sample Acquired. HR: 0 BPM. Physician arrived. Blul Wang scrubbing. Dotty Schaefer circulating. Physician scrubbed in. Immediate Pre-Procedure Time Out. Correct Patient: Yes; Correct Procedure: Yes; Correct Site: Yes; Correct Patient Position: Yes; Correct Supplies: Yes; Dried Flammable Prep: Yes; Blood Products Available: N/A;. Lidocaine 1% infiltrated to the right groin. Arterial access obtained. A 5 kenyan TIG catheter in over wire. Multiple views taken of left coronary artery. Catheter redirected to the RCA. Multiple views taken of right coronary artery. Physician review of cine films. Catheter removed over the exchange wire. Inventory is CRD 6 FR XB 3.5 GUIDE. 6 kenyan XB 3.5 guide catheter was inserted over the wire. Runthrough guidewire was advanced through the guide catheter to lesion in the OM. Wire out. 300cm Runthrough guidewire was advanced through the guide catheter to lesion in the OM. Sprinter OTW 2.0x12mm OTW balloon inserted and advanced to OM2. ACT drawn. Results 216 seconds. Therapeutic limits - pre-heparin administration 90-150 seconds and monitoring heparin during a vascular procedure >250 seconds. Inflation number : 1 A MDT SPRINTER 2.06X81CR BALLOON was prepped and advanced across the 2nd Ob Steph , then inflated to 8 GUNNER for 0:23 seconds. Inflation number: 2 The MDT SPRINTER [id number] BALLOON was reinflated across the 2nd Ob Steph, to 8 GUNNER for 0:25 seconds. Balloon out. Inflation number : 3 A AB TREK 2.25X12 RX BALLOON was prepped and advanced across the 2nd Ob Steph , then inflated to 8 GUNNER for 0:23 seconds. Inflation number: 4 The AB TREK 2.25X12 RX BALLOON was reinflated across the 2nd Ob Steph, to 8 GUNNER for 0:24 seconds. Balloon out. guideliner inserted OTW. Patient's family updated. guideliner out. guideliner inserted OTW. guideliner out. guideliner inserted OTW. guideliner out. Shandon 2.5x15 stent inserted OTW. Intact stent out OTW. Inflation number : 5 A AB MINI TREK 2.00X12 RX BALLOON was prepped and advanced across the 2nd Ob Steph , then inflated to 12 GUNNER for 0:14 seconds. Inflation number: 6 The AB MINI TREK 2.00X12 RX BALLOON was reinflated across the 2nd Ob Steph, to 12 GUNNER for 0:15 seconds. Balloon out. Results checked. Wire out. Physician review of cine films. Guide catheter out. Physician scrubbed out. TR band placed. Hemostasis obtained. A TR Band was successful obtaining hemostatsis at the Right Radial artery insertion site. Vital chart was stopped. Post Procedure: Pulses reassessed and unchanged. PERRLA. Strong, equal hand document imaging specialist bilaterally. No VTE prophylaxis required. Medication's Wasted: Lidocaine 1% = 18 mL. Medication's Wasted: Nitro = 49.8 mg. Medication's Wasted: Other = Versed 1.5 mg. Total IV fluids: 93 mL. Contrast type used: Omnipaque 300 mgI/mL, 500 mL bottle. PCI Indication: CAD (without ischemic symptoms). Post-op diagnosis: CAD. Complications: None. Estimated blood loss: 5mL-10mL. Procedure completed. Patient transferred by wheelchair to CPRU. Access Site Site: Right Radial artery Sheath Size: 6 Fr Hemostasis Method: TR Band Hemostasis Success: Successful Procedure Medications Start: 7:30 AM Stop: 7:30 AM Medication: Versed Amount: 1 mg Route: I.V. Start: 7:30 AM Stop: 7:30 AM Medication: Fentanyl Amount: 50 mcg Route: I.V. Start: 7:38 AM Stop: 7:38 AM Medication: Versed Amount: 1 mg Route: I.V. Start: 7:38 AM Stop: 7:38 AM Medication: Fentanyl Amount: 50 mcg Route: I.V. Start: 7:41 AM Stop: 7:41 AM Medication: Nitrogylcerin Amount: 200 mcg Route: I.A. Start: 7:44 AM Stop: 7:44 AM Medication: Heparin Amount: 5000 units Route: I.V. Start: 7:52 AM Stop: 7:52 AM Medication: Heparin Amount: 3000 units Route: I.V. Start: 8:12 AM Stop: 8:12 AM Medication: Heparin Amount: 3000 units Route: I.V. Start: 8:26 AM Stop: 8:26 AM Medication: Heparin Amount: 1000 units Route: I.V. Start: 8:34 AM Stop: 8:34 AM Medication: Versed Amount: 0.5 mg Route: I.V. I, the attending physician, have reviewed and verified all procedure medications. Yes, all medications given per verbal order History/Risk Factors Hypertension: Yes Dyslipidemia: No Peripheral Arterial Disease (PAD): No Myocardial Infarction (NE): No Obesity: No Renal Disease: No Tobacco Use: Former Prior Interventions PCI: No CABG: No Valve Surgery: No Report Signatures Finalized by Joey Hall MD on 07/13/2021 03:35 PM
[2021-06-29] MEDS: diphenhydrAMINE 50 mg Capsule PO (06:21)
--- NOTE | 2021-06-29 07:24 | W.PM.OPSUD ---
Surgery/Procedure H&P Update DATE OF PROCEDURE: June 29, 2021 DATE H&P PERFORMED: 02/02/21 H&P UPDATE INFORMATION: I have reviewed H&P completed within last 30 days, I have examined patient prior to procedure and No changes to prior documentation PREOP DIAGNOSIS: Worsening angina PRIMARY INDICATION FOR PROCEDURE: Worsening angina PLANNED PROCEDURE: Operation Date: 06/29/21 07:00 Proposed Procedures p Cardiac Catheterization 84506 R07.89(Left) - Joey Hall M.D Possible percutaneous coronary interventiion PATIENT REASSESSED PRIOR TO SEDATION, WITH NO CHANGE NOTED: Yes PHYSICAL EXAM: alert, oriented x 3, clear to auscultation bilaterally and regular rate & rhythm AIRWAY EVAL/ANESTHESIA PLAN: ASA III, Monitored Anesthesia, Local Anesthesia, Risks, benefits & alternatives of sedation and/or procedure discussed and Patient agrees to continue as planned
--- NOTE | 2021-06-29 09:09 | PC.NURSE ---
Fluid Status Verbal orders received from Dr. Hall for NS at 100ml/hr X 6 hrs.
--- NOTE | 2021-06-29 09:19 | PC.NURSE ---
Patient given breakfast.
--- NOTE | 2021-06-29 10:45 | PC.NURSE ---
3ml air removed from right radial TR band. No oozing or hematoma noted. Radial pulse palpable. Will continue to monitor.
--- NOTE | 2021-06-29 11:02 | PC.NURSE ---
2ml air removed from right radial TR band. No oozing or hematoma noted. Will continue to monitor.
--- NOTE | 2021-06-29 11:13 | PC.NURSE ---
3ml air removed from TR band. No bleeding or hematoma noted. Radial pulse palpated. Will continue to monitor.
--- NOTE | 2021-06-29 11:23 | PC.NURSE ---
2ml air removed from right radial TR band. No oozing or hematoma noted. Radial pulse palpable. Will continue to monitor.
--- NOTE | 2021-06-29 11:38 | PC.NURSE ---
3ml air removed from right radial TR band. No oozing or hematoma noted. Will continue to monitor.
--- NOTE | 2021-06-29 12:00 | PC.NURSE ---
3ml air removed from right radial TR band at this time. no oozing or hematoma noted. will continue to monitor.
--- NOTE | 2021-06-29 12:13 | PC.NURSE ---
3ml air removed from right radial TR band. Site asymptomatic. Will continue to monitor.
--- NOTE | 2021-06-29 12:21 | PC.NURSE ---
3ml air removed from right radial TR band. Site asymptomatic. Radial pulse palpable. Will continue to monitor.
--- NOTE | 2021-06-29 12:34 | PC.NURSE ---
Nickel size hematoma noted to right wrist. TR band inflated with 12ml air. Radial pulse palpable. We reevaluate in 30 minutes.
--- NOTE | 2021-06-29 13:05 | PC.NURSE ---
2ml of air removed from right radial TR band. No bleeding noted.
--- NOTE | 2021-06-29 13:10 | PC.NURSE ---
2ml air released from right radial TR band. no bleeding noted. will continue to monitor.
--- NOTE | 2021-06-29 13:20 | PC.NURSE ---
2 ml air released from right radial TR band. Will continue to monitor.
--- NOTE | 2021-06-29 13:43 | PC.NURSE ---
3ml removed from TR band. No bleeding noted. Will continue to monitor.
--- NOTE | 2021-06-29 13:50 | PC.NURSE ---
3ml air removed. TR band deflated. Nurse observed at bedside for about 15 minutes post deflation. minimal ooze from puncture site, no hematoma observed. Dry sterile dressing placed to right wrist. Will continue to monitor.
--- NOTE | 2021-06-29 15:19 | P.SS_ITS ---
Short Stay Summary Providers Date of Admit/Discharge: 07/13/21 Attending Provider: Joey Hall MD Primary Care Provider: Unruly Hernandez NP Chief Complaint: left heart cath HPI History of Present Illness Dariusz Leigh is a 65 year old male with PMHx of CVA with residual right- sided weakness in 07/2016, PVD (abnormal ASHER in 2019, asymptomatic per patient), former smoker quit 3 years back, hypothyroidism, COPD, HTN, HLD, OA and depression he was referred by Dr. Perrin for coronary angiogram as patient was having recurrent chest pain after a syncopal episode. He was requiring multiple nitros. He underwent stress test that did not show any significant abnormality however given his worsening chest pain and the use of multiple nitros he was referred for angiogram. Review of Systems Const: Reports: fatigue; Denies: fever(s), chills, change in weight or diaphoresis Eyes: Denies: change in vision or eye redness ENMT: Denies: throat pain, odynophagia, mouth pain or epistaxis Card: Reports: chest pain (little), lightheadedness and dyspnea on exertion; Denies: palpitations, irregular heart rhythm, edema, syncope, pre-syncope, orthopnea or leg pain with exertion Resp: Denies: dyspnea, productive cough or wheezing GI: Denies: nausea, vomiting, hematemesis, hematochezia or melena : Denies: hematuria Musc: Denies: extremity swelling or joint pain Skin/Breast: Denies: rash, pruritus, erythema or new lesions Neuro: Denies: numbness in extremities, weakness in extremities, sensory changes, frequent falls, Slurred speech present or difficulty communicating thoughts Psych: Denies: anxiety, depression, irritability, suicidal ideation or homicidal ideation Endo: Denies: polyuria, polydipsia or excessive sweating Jack/Lymph: Reports: easy bruising and easy bleeding Home Meds/Allergies Home Medications and Allergies Home Medications Medication Instructions Recorded Confirmed Type albuterol 90 mcg/actuation aerosol 90 mcg INHALATION .PRN 02/17/20 07/09/21 History inhaler aspirin 325 mg tablet 325 mg PO DAILY 02/17/20 07/09/21 History citalopram 10 mg tablet 10 mg PO DAILY 02/17/20 07/09/21 History fluticasone 250 mcg-salmeterol 50 1 inh INHALATION BID 02/17/20 07/09/21 History mcg/dose blistr powdr for inhalation fluticasone propionate 50 1 spray INTRANASAL DAILY 02/17/20 07/09/21 History mcg/actuation nasal spray,suspension ipratropium 18 mcg-albuterol 103 18 spray INHALATION QID 02/17/20 07/09/21 History mcg/actuation aerosol inhaler levothyroxine 50 mcg tablet 50 mcg PO DAILY 02/17/20 07/09/21 History omeprazole 20 mg capsule,delayed 20 mg PO BID 02/17/20 07/09/21 History release simvastatin 20 mg tablet 20 mg PO DAILY 02/17/20 07/09/21 History metoprolol succinate 50 mg 50 mg PO DAILY 01/31/21 07/09/21 History tablet,extended release 24 hr albuterol sulfate 90 mcg/actuation 2 puff INHALATION Q6H PRN 06/04/21 07/09/21 History aerosol inhaler ketoconazole 2 % shampoo 1 applic TOPICAL Q14D 06/04/21 07/09/21 History nitroglycerin 0.4 mg sublingual 0.4 mg SUBLINGUAL Q5M PRN 06/04/21 07/09/21 History tablet Allergies Allergy/AdvReac Type Severity Reaction Status Date / Time No Known Allergies Allergy Verified 07/09/21 09:34 PFSH Acute PFSH: Medical History Atherosclerosis of coronary artery COPD (chronic obstructive pulmonary disease) CVA (cerebral vascular accident) Depression Elevated PSA GERD (gastroesophageal reflux disease) HTN (hypertension) Hypothyroid Osteoarthritis PAD (peripheral artery disease) Surgical History H/O carpal tunnel repair Hx of colonoscopy (03/06/21) Diverticulosis-10 years Family History Father , AT AGE 71 Myocardial infarction (lateral wall) Hyperlipidemia Brain tumor Mother , AT AGE 58 Hyperlipidemia Headache, migraine History of heart attack Brother Cancer COLON Social History Alcohol intake: never Marital status: Life Partner Current occupational status: disabled History of recent travel: No Vitals/I&O/Wt Last Vital Signs Temp 98.0 F 06/29/21 06:11 Pulse 68 06/29/21 15:11 Resp 18 06/29/21 15:11 BP 107/65 06/29/21 15:11 Pulse Ox 96 06/29/21 15:11 06/29/21 06/29/21 06/29/21 06:59 14:59 22:59 Intake Total 360 / 360 Balance 360 / 360 Weight last 48 hrs Weight 139 lb Weight 139 lb Physical Exam Narrative: EXAM NARRATIVE: GENERAL: Patient is alert, awake and oriented x3. [] NECK: No jugular vein distension. [] HEENT: No cyanosis. No icterus. No pallor. [] HEART: Regular S1 and S2. No murmur, rub or gallop. [] LUNGS: Clear to auscultate bilaterally. [] ABDOMEN: Soft, nontender and nondistended. Positive bowel sounds. No guarding, rebound or tenderness. [] CENTRAL NERVOUS SYSTEM: Grossly nonfocal. [] EXTREMITIES: Lower extremities with 1+ edema bilaterally. Pulses palpable in the lower extremities, both dorsalis pedis and posterior tibial. [] Hospital Course Hospital Course Dariusz Leigh is a 65 year old male with PMHx of CVA with residual right- sided weakness in 07/2016, PVD (abnormal ASHER in 2019, asymptomatic per patient), former smoker quit 3 years back, hypothyroidism, COPD, HTN, HLD, OA and depression he was referred by Dr. Perrin for coronary angiogram as patient was having recurrent chest pain after a syncopal episode. He was requiring multiple nitros. He underwent stress test that did not show any significant abnormality however given his worsening chest pain and the use of multiple nitros he was referred for angiogram. Coronary angiogram showed significant stenosis of OM 2. This was a small to medium sized vessel. However given his symptoms, we attempted to perform PCI. Balloon angioplasty was performed however the stent would not deliver delivered. As stenosis had mildly improved, and it due to inability of stent delivery, we decided to stop there. Patient will be continued on aspirin and Plavix. We will need to uptitrate antianginal medications. SSS Data Data Completed and Pending: Pending at discharge Category Date Time Status ICE SKATER request for service Routin e Exams 06/29/21 06:00 Taken Discharge Plan Discharge Patient Disposition: Home Condition: Stable Prescriptions: New Plavix 75 mg tablet 75 mg PO DAILY Qty: 60 RF: 2 Continued albuterol 90 mcg/actuation aerosol 90 mcg INHALATION .PRN RF: 0 ipratropium-albuterol 18-103 mcg/actuation aerosol 18 spray INHALATION QID RF: 0 fluticasone propion-salmeterol [Advair Diskus] 250-50 mcg/dose blister with device 1 inh INHALATION BID RF: 0 fluticasone propionate 50 mcg/actuation spray,suspension 1 spray INTRANASAL DAILY RF: 0 aspirin 325 mg tablet 325 mg PO DAILY RF: 0 omeprazole 20 mg capsule,delayed release(DR/EC) 20 mg PO BID RF: 0 simvastatin 20 mg tablet 20 mg PO DAILY RF: 0 levothyroxine 50 mcg tablet 50 mcg PO DAILY RF: 0 citalopram 10 mg tablet 10 mg PO DAILY RF: 0 metoprolol succinate 50 mg tablet extended release 24 hr 50 mg PO DAILY RF: 0 nitroglycerin 0.4 mg tablet, sublingual 0.4 mg sublingual Q5M PRN (Reason: Chest Pain) RF: 0 albuterol sulfate [ProAir HFA] 90 mcg/actuation HFA aerosol inhaler 2 puff inhalation Q6H PRN (Reason: Shortness Of Breath) RF: 0 ketoconazole 2 % shampoo 1 applic topical Q14D RF: 0 Discontinued clopidogrel [Plavix] 75 mg tablet 300 mg PO DAILY Qty: 4 RF: 0 No Action isosorbide mononitrate 30 mg tablet extended release 24 hr 30 mg PO DAILY Qty: 90 RF: 2 Discharge Orders: Discharge Order (Routine); Ordered 06/29/21 Ordered By: Joey Hall Referrals: Sheyla Villegas FNP [Nurse Practitioner] - 07/09/21 9:30 am (Please arrive 15 minutes early ) Marilu Perrin MD [Physician] - 07/30/21 10:15 am (Please arrive 15 minutes early) Discharge Diet: Cardiac Discharge Activity: Increase activity as tolerated Patient Instructions: Clopidogrel (By mouth), Left Heart Catheterization (DC), Coronary Angioplasty (DC), Moderate Sedation (DC), Moderate Sedation (GEN) Attestations Medical Necessity Statement*: Care not expected to cross 2 midnights. Time Spent in Patient Care*: less than 30 min Quality Metrics Clinical Quality Measures: During this hospital stay, did patient experience: None Coding Level of Care Code Acute Window Shade Cutter And Mounter for Jose M Cotto
== END 2021-06-29 15:16 | disposition home or self-care (01) ==
PROVIDERS: Internal Medicine; PCP Nurse Practitioner Family; Visit Provider Internal Medicine Cardiovascular Disease
DX: I25.10 Atherosclerotic heart disease of native coronary artery without angina pectoris (principal); I69.851 Hemiplegia and hemiparesis following other cerebrovascular disease affecting right dominant side; E03.9 Hypothyroidism, unspecified; J44.9 Chronic obstructive pulmonary disease, unspecified; I10 Essential (primary) hypertension; E78.5 Hyperlipidemia, unspecified; M19.90 Unspecified osteoarthritis, unspecified site; F32.9 Major depressive disorder, single episode, unspecified; Z79.82 Long term (current) use of aspirin
CPT/HCPCS: 36415; 85347; 92920; 93454; C1725; C1769; C1887; C1894; J1644; J2250; J3010; J3490; J7030; Q0163; Q9967

== ENCOUNTER → 2021-07-09 10:14 | Outpatient (BNVA) | payer MEDICARE, MEDICAID, SELFPAY | PROVIDERS: PCP Nurse Practitioner Family; Visit Provider Nurse Practitioner Family | DX: I25.10 Atherosclerotic heart disease of native coronary artery without angina pectoris (principal); Z09 Encounter for follow-up examination after completed treatment for conditions other than malignant neoplasm | CPT/HCPCS: 80048 ==

== ENCOUNTER 2021-11-29 08:21 | Outpatient (CLI) | payer MEDICARE, MEDICAID, SELFPAY ==
--- NOTE | 2021-11-29 08:45 | USCV_ITS ---
LuDariusz Age: 66 Gender: M : 1955 Exam Date: 11/29/2021 08:07 Ordering Phys: Marilu Perrin MD ([email or web address]) Technologist: Exam Location: [facility] [place] Indication: PAD RIGHT LEFT Brachial 131.00 mmHg Brachial 118.00 mmHg Pressure (mmHg) Waveform Pressure (mmHg) Waveform 126.00 Above Knee 129.00 128.00 Below Knee 136.00 125.00 DIRECTOR OF STRATEGIC INITIATIVES 136.00 129.00 DPA 128.00 0.98 Ankle/Brachial Index 1.00 56.00 Pre-Exercise Toe Pressure 84.00 0.43 Pre-Exercise Toe/Brachial Index 0.64 FINDINGS Sudden normal resting ABIs bilaterally Moderately diminished resting TBI on the right side Minimally diminished resting TBI on the left side PVR waveform showing loss of dicrotic notch bilaterally, more so on the right side CONCLUSIONS Features of mild to moderate peripheral arterial disease on the right side mostly involving the distal vessels Features suggestive of mild peripheral artery disease on the left side Dr Marylu Barroso MD [facility] (Electronically Signed) Final Date: 29 November 2021 19:33 S
== END 2021-11-29 08:22 | disposition home or self-care (01) ==
LOC: RAD 08:23
PROVIDERS: PCP Nurse Practitioner Family; Visit Provider Internal Medicine Cardiovascular Disease
DX: I73.9 Peripheral vascular disease, unspecified (principal)
CPT/HCPCS: 93923

== ENCOUNTER 2021-12-06 09:50 | Emergency (ER) | payer MEDICARE, MEDICAID, SELFPAY ==
[2021-12-06] VITALS (8 sets, daily range): BP systolic 114–139; BP diastolic 64–81; PULSE 90–98; RESP 16–19; TEMP 37; O2SAT 88–93; BMI 20.1
--- NOTE | 2021-12-06 10:04 | ECG_ITS ---
[facility] Test Date: 2021-12-06 Pat Name: Dariusz Leigh Department: Room: Gender: Male [employer]er: : 1955 Requested By: Renae Savage Order Number: [id number] Jamal MD: Marilu Perrin M.D. Measurements Intervals Thompson Rate: 98 P: 79 MI: 138 QRS: 65 QRSD: 86 T: 59 QT: 336 QTc: 430 Interpretive Statements SINUS RHYTHM POSSIBLE RIGHT ATRIAL ENLARGEMENT [0.25mV P-WAVE] Compared to ECG 05/13/2021 13:31:31 No significant changes Electronically Signed On 12-06-2021 19:15:47 SECURITY CHECKER by Marilu Perrin M.D. [id number]
--- NOTE | 2021-12-06 10:04 | XR_ITS ---
WS: [id number] Exam: XR acute abdomen series [id number] Date/Time of Exam: 12/06/2021 10:08 AM Reason For Exam: pain/constipation The lungs are clear and hyperinflated. Cardiomediastinal silhouette is unremarkable. No pleural effus ions. Scattered calcified granulomas. Bony structures are intact. Flat and erect abdomen. No bowel obstruction or free air. No sign of organ enlargement. Regional bony elements are unremarkable. XR/XR acute abdomen series [id number] IMPRESSION: 1. Pulmonary hyperinflation which may indicate obstructive lung disease. No acu te cardiopulmonary finding. 2. No acute abdominal process.
[2021-12-06 10:41] LABS: Basophils # 0.1 10^3/uL (0.0-0.1); Basophils % 0.3 %; Eosinophils # 0.1 10^3/uL (0.0-0.8); Eosinophils % 0.4 %; Hematocrit 45.3 % (42.0-52.0); Hemoglobin 15.3 g/dL (11.7-16.6); Lymphocytes # 1.3 10^3/uL (0.8-4.8); Lymphocytes % 8.2 %; Mean Corpuscular HGB Conc 33.8 g/dL (30.0-36.0); Mean Corpuscular Hemoglobin 30.8 pg (28.0-34.0); Mean Corpuscular Volume 91.3 fl (80-94); Mean Platelet Volume 10.6 fL (7.4-10.4); Monocytes # 0.7 10^3/uL (0.2-0.9); Monocytes % 4.2 %; Neutrophils # 13.53 10^3/uL (1.8-7.7); Neutrophils % 86.5 %; Nucleated Red Blood Cells % 0 %; Platelet Count 237 10^3/cmm (130-400); Red Blood Count 4.96 10^6/uL (4.1-5.3); White Blood Count 15.7 10^3/uL (4.0-10.0)
[2021-12-06 10:59] LABS: Alanine Aminotransferase 13 U/L (0-41); Albumin Level 4.2 g/dL (3.5-5.2); Alkaline Phosphatase 92 IU/L (40-130); Aspartate Amino Transferase 22 U/L (0-40); Blood Urea Nitrogen 17 mg/dL (8-23); Calcium 8.8 mg/dL (8.5-10.5); Carbon Dioxide 25 mmol/L (22-29); Chloride 101 mmol/L (98-107); Creatinine Clr Calc Pharmacy 78.3162; Globulin 3.1 g/dL (1.3-4.6); Glomerular Filtration Rate 96.7 mL/min (90-130); Glucose 81 mg/dL (65-115); Osmolality Calculated 291 mOsm/kg (285-295); Sodium 140 mmol/L (136-145); Total Bilirubin 0.6 mg/dL (0.15-1.2); Total Protein 7.3 g/dL (6.6-8.7)
[2021-12-06 11:01] LABS: Troponin(5th) Baseline 20 ng/L (0-15)
[2021-12-06 11:10] LABS: Anion Gap 18.2 (5-19); Potassium 4.2 mmol/L (3.5-5.1)
[2021-12-06 11:41] LABS: SARS Covid-2 Antigen Negative (Negative)
--- NOTE | 2021-12-06 13:03 | CT_ITS ---
WS: [id number] CT ABDOMEN AND PELVIS WITH CONTRAST HISTORY: pain, leukocytosis TECHNIQUE: Imaging performed of the abdomen and pelvis with IV contrast. Single phase imaging of the abdomen. Coronal and sagittal reformats are submitted. All CT scans at [facility] use at [address] one of these dose optimization techniques: automated exposure control; mA and/or kV adjustment per patient size (includes targeted exams where dose is matched to clinical indication); or iterative re construction. IV CONTRAST: Omnipaque 300; 95 mL IV. Oral contrast: No DLP: 689.94 mGy.cm COMPARISON: 07/16/2007 Quality of this examination is degraded by motion. Lower thorax: Chronic emphysematous changes at the lung bases. Quality is limited by motion but there does appear to be some mild thickening of the distal airways suggesting mild endobronchial pneumonia or developing pneumonitis. Heart is normal size. No hiatal hernia. Liver/biliary system: Hepatic granulomata. Otherwise negative. Gallbladder: Normal. No gallstones or wall thickening. No pericholecystic fluid. Pancreas: Limited by motion. Head is normal. Tail is not well visualized. Spleen: Normal size with granulomata. Adrenal glands: Normal. Right kidney: Normal. Left kidney: Normal. Aorta: Mild atherosclerosis with no aneurysm. Lymphadenopathy: No lymph nodes identified but smaller lymph nodes could be obscured by motion. Free fluid: None. GI tract: There is diffuse thickening of the stomach wall which could be due to underdistention or ga stritis. Significant motion artifact throughout portions of the small bowel and colon. The appendix d oes appear normal. No definite wall thickening or submucosal edema is noted. There are a few divertic brooke in the descending colon. No adjacent fluid. Mild fecal retention. Abdominal wall: Unremarkable abdominal wall. No hernia. Pelvis: Moderately distended urinary bladder with diffuse wall thickening. Prostate gland is very mil dly enlarged and contains numerous calcifications. No adenopathy within the pelvis. There is some str anding in the perirectal soft tissues which could be due to motion or mild proctitis. No adenopathy. Bones: Mild curvature lumbar spine. CT/CT abdomen pelvis w con* [id number] IMPRESSION: 1. Mild diffuse wall thickening of the stomach may be due to underdistention o r gastritis. 2. Examination quality is limited by breathing artifact. 3. No renal obstruction. 4. No GI tract obstruction but there is mild fecal retention and constipation. 5. Diffuse bladder wall thickening. Consider prostate hypertrophy causing outl et obstruction. 6. Normal appendix. 7. Mild interstitial thickening at the lung bases could be due to early endob ronchial pneumonia or motion.
[2021-12-06 13:12] LABS: Troponin 5 2HR 17.34 ng/L (0-15); Troponin 5 2HR Delta -2.66 ABS# (0-10)
[2021-12-06] MEDS: sodium chloride 0.9% 1,000 ML 999 ML IV (13:15)
--- NOTE | 2021-12-06 14:08 | ED_ITS ---
HPI - Abdominal Pain General: Chief Complaint: Shortness of Breath/Dyspnea Stated Complaint: almost passed out twice, no bowelmovement for week Time Seen by Provider: 12/06/21 11:26 Source: patient and family Mode of arrival: ambulatory History of Present Illness: HPI narrative: 66-year-old male complaining of generalized abdominal pain. His says that this morning after he ate breakfast, he suddenly had the urge to have a BM, on the way to the bathroom he became weak and almost passed out twice. He then had a large bowel movement. He told his that he had not had a BM in over a week. He has not had any nausea or vomiting. No fever. No diarrhea or blood in the stool per . He has a history of COPD, finished course of antibiotics last week for a sinus infection . His breathing and cough are similar to baseline. He does not use home oxygen. He says he has been having abdominal pain for a week, which has not mentioned anything to his about it. Has been eating and drinking without any difficulty. He is unable to provide further details/characteristics of his pain. MD elicited complaint: abdominal pain Pertinent past history: constipation Onset (ago): day(s) Location: Diffuse Associated Symptoms: Reports change in bowel habits and constipation; Denies change in stool character, chills, dysuria, fever(s), nausea and vomiting Review of Systems General: Reports: 10 or more systems reviewed and unremarkable except in HPI and below Const: Reports: fatigue; Denies: fever(s), chills or change in appetite Eyes: Denies: change in vision or blurry vision ENMT: Denies: swelling of lips/tongue or epistaxis Card: Reports: lightheadedness, pre-syncope and dyspnea on exertion; Denies: chest pain, palpitations, irregular heart rhythm, swelling of feet/ankles or orthopnea Resp: Reports: productive cough and chest congestion; Denies: change in phlegm color or hemoptysis GI: Reports: abdominal pain, constipation and change in bowel habits; Denies: nausea, vomiting, pain on defecation or change in stool character : Denies: difficulty urinating, dysuria or urinary frequency Musc: Denies: neck pain, back pain, extremity pain or extremity swelling Skin/Breast: Denies: rash, pruritus or erythema Neuro: Denies: lack of coordination, difficulty walking or frequent falls Jack/Lymph: Reports: easy bruising and easy bleeding PFSH ED PFSH: Medical History Atherosclerosis of coronary artery CAD (coronary artery disease) COPD (chronic obstructive pulmonary disease) CVA (cerebral vascular accident) Depression Elevated PSA GERD (gastroesophageal reflux disease) HTN (hypertension) Hypothyroid Osteoarthritis PAD (peripheral artery disease) Surgical History H/O carpal tunnel repair Hx of colonoscopy (03/06/21) Diverticulosis-10 years Family History Father , AT AGE 71 Myocardial infarction (lateral wall) Hyperlipidemia Brain tumor Mother , AT AGE 58 Hyperlipidemia Headache, migraine History of heart attack Brother Cancer COLON Social History Smoking and tobacco status: former smoker Alcohol intake: never Marital status: Life Partner Current occupational status: disabled History of recent travel: No Physical Exam Const: COMMON NORMALS: no acute distress, average body habitus, patient oriented x3 and alert GENERAL APPEARANCE: comfortable and frail appearing; not in distress ORIENTATION/CONSCIOUSNESS: Yes oriented to person and Yes oriented to place HENMT: COMMON NORMALS: normocephalic and atraumatic HEAD & SCALP: normocephalic and atraumatic FACE & SINUS: normal facial exam and face symmetric Eye: COMMON NORMALS: Equal, round and reactive pupils present, EOMs intact bilaterally, conjunctivae normal and no scleral icterus CONJUNCTIVA: Yes conjunctivae normal PUPIL: Yes Equal, round and reactive pupils present Neck/C-Spine: COMMON NORMALS: full ROM, no lymphadenopathy and no JVD Resp: COMMON NORMALS: normal respiratory effort EFFORT & INSPECTION: No respiratory distress, Yes Actively coughing moist, rattling and normal for patient and No tripod positioning AUSCULTATION: rhonchi and diminished lung sounds Cardio: COMMON NORMALS: no JVD, regular rate and regular rhythm RATE: regular rate RHYTHM: regular rhythm GI: INSPECTION: Yes normal to inspection AUSCULTATION: Yes normoactive bowel sounds PALPATION: Yes Firmness to palpation present (GI), Yes Tenderness to palpation present (GI) (Diffuse), Yes Guarding due to palpation present (GI), No Rigid due to palpation, No Hernia present, No Palpable mass present, No Ascites present and No Rebound tenderness present Extremity: COMMON NORMALS: normal to inspection, full ROM and capillary refill normal Neuro: COMMON NORMALS: patient oriented x3 SENSORIUM/ORIENTATION: Yes alert, Yes oriented to person and Yes oriented to place Psych: COMMON NORMALS: mental status grossly normal ATTITUDE: Yes calm SPEECH: Yes minimal Skin: COMMON NORMALS: no rashes or lesions noted, no wounds, turgor normal and no jaundice GENERAL SKIN EXAM: no rashes or lesions noted and turgor normal Course Vital Signs: Vital signs: Vital Signs Temperature 98.6 F 12/06/21 10:04 Pulse Rate 90 12/06/21 12:33 Respiratory Rate 19 H 12/06/21 12:33 Blood Pressure 139/79 12/06/21 16:00 Pulse Oximetry 91 12/06/21 16:00 MDM - Abdominal Pain MDM Narrative: Medical decision making narrative: 66-year-old male with 2 episodes of near syncope associated with abdominal cramping and sudden urge to have a BM. Now back to baseline, ambulating without difficulty. Mild diffuse abdominal tenderness on exam. WBC count slightly elevated. No acute inflammatory process on CT abd/pelvis. Likely early pneumonia vs COPD exacerbation. Prednisone 60mg QD for 5 days, doxycycline BID for 7 days Chronic constipation; Colace x14 days Differential Diagnosis: Differential diagnosis abdominal pain: Likely constipation, diverticulitis and small bowel obstruction Medical Records: Attestation: I reviewed the patient's medical records. Lab Data: Attestation: I reviewed the patient's lab results. Labs: Lab Results 12/06/21 12/06/21 12/06/21 10:20 10:20 10:20 WBC 15.7 10^3/uL H 10 ^3/uL (4.0-10.0) RBC 4.96 10^6/uL 10^6 /uL (4.1-5.3) Hgb 15.3 g/dL g/dL (11.7-16.6) Hct 45.3 % % (42.0-52.0) MCV 91.3 fl fl (80-94) MCH 30.8 pg pg (28.0-34.0) MCHC 33.8 g/dL g/dL (30.0-36.0) RDW 13.0 % % (12.1-15.1) Plt Count 237 10^3/cmm 10^3 /cmm (130-400) MPV 10.6 fL H fL (7.4-10.4) Neut % (Auto) 86.5 % % Lymph % (Auto) 8.2 % % Dougherty % (Auto) 4.2 % % Eos % (Auto) 0.4 % % Baso % (Auto) 0.3 % % Neut # (Auto) 13.53 10^3/uL H 1 0^3/uL (1.8-7.7) Lymph # (Auto) 1.3 10^3/uL 10^3/ uL (0.8-4.8) Dougherty # (Auto) 0.7 10^3/uL 10^3/ uL (0.2-0.9) Eos # (Auto) 0.1 10^3/uL 10^3/ uL (0.0-0.8) Baso # (Auto) 0.1 10^3/uL 10^3/ uL (0.0-0.1) Nucleated RBC % (a uto) 0 % % Nucleated RBCs # 0.0 /100WBC /100W BC Sodium 140 mmol/L mmol/L (136-145) Potassium 4.2 mmol/L mmol/L (3.5-5.1) Chloride 101 mmol/L mmol/L (98-107) Carbon Dioxide 25 mmol/L mmol/L (22-29) Anion Gap 18.2 (5-19) BUN 17 mg/dL mg/dL (8-23) Creatinine 0.8 mg/dL mg/dL (0.7-1.2) GFR Calculation 96.7 mL/min mL/mi n (90-130) Glucose 81 mg/dL mg/dL (65-115) Calculated Osmolal ity 291 mOsm/kg mOsm/ kg (285-295) Calcium 8.8 mg/dL mg/dL (8.5-10.5) Total Bilirubin 0.6 mg/dL mg/dL (0.15-1.2) AST 22 U/L U/L (0-40) ALT 13 U/L U/L (0-41) Alkaline Phosphata se 92 IU/L IU/L (40-130) Troponin T Baselin e 20 ng/L H ng/L (0-15) Troponin T 120 Min [place] Delta Troponin T Total Protein 7.3 g/dL g/dL (6.6-8.7) Albumin 4.2 g/dL g/dL (3.5-5.2) Globulin 3.1 g/dL g/dL (1.3-4.6) Urine Color Urine Appearance Urine pH Ur Specific Gravit y Urine Protein Urine Glucose (UA) Urine Ketones Urine Blood Urine Nitrate Urine Bilirubin Prot Sulfosalicyli c Acd Urine Urobilinogen Ur Leukocyte Rhonda ase SARS-CoV-2 Ag (Rap id) 12/06/21 12/06/21 12/06/21 11:17 12:39 14:20 WBC RBC Hgb Hct MCV MCH MCHC RDW Plt Count MPV Neut % (Auto) Lymph % (Auto) Dougherty % (Auto) Eos % (Auto) Baso % (Auto) Neut # (Auto) Lymph # (Auto) Dougherty # (Auto) Eos # (Auto) Baso # (Auto) Nucleated RBC % (a uto) Nucleated RBCs # Sodium Potassium Chloride Carbon Dioxide Anion Gap BUN Creatinine GFR Calculation Glucose Calculated Osmolal ity Calcium Total Bilirubin AST ALT Alkaline Phosphata se Troponin T Baselin e Troponin T 120 Min [place] 17.34 ng/L H ng/L (0-15) Delta Troponin T -2.66 ABS# L ABS# (0-10) Total Protein Albumin Globulin Urine Color Yellow (Yellow) Urine Appearance Clear (CLEAR) Urine pH 8 H (5-7) Ur Specific Gravit y 1.015 (1.005-1.030) Urine Protein Neg (Negative) Urine Glucose (UA) Norm (Normal) Urine Ketones 1+ H (Negative) Urine Blood Neg (Negative) Urine Nitrate Negative (Negative) Urine Bilirubin Neg (Negative) Prot Sulfosalicyli c Acd Negative (Negative) Urine Urobilinogen 4 mg/dL H mg/dL (Negative) Ur Leukocyte Rhonda ase Negative (Negative) SARS-CoV-2 Ag (Rap id) Negative (Negative) Discharge Plan Discharge Patient Disposition: Home Clinical Impression: Acute exacerbation of chronic obstructive airways disease, Constipation Condition: Stable Prescriptions: New docusate sodium [Colace] 100 mg capsule 200 mg PO DAILY Qty: 30 RF: 0 prednisone 20 mg tablet 60 mg PO DAILY 5 Days Qty: 15 RF: 0 doxycycline hyclate 100 mg capsule 100 mg PO BID 7 Days Qty: 14 RF: 0 No Action albuterol 90 mcg/actuation aerosol 90 mcg INHALATION .PRN RF: 0 ipratropium-albuterol 18-103 mcg/actuation aerosol 18 spray INHALATION QID RF: 0 fluticasone propion-salmeterol [Advair Diskus] 250-50 mcg/dose blister with device 1 inh INHALATION BID RF: 0 fluticasone propionate 50 mcg/actuation spray,suspension 1 spray INTRANASAL DAILY RF: 0 omeprazole 20 mg capsule,delayed release(DR/EC) 20 mg PO BID RF: 0 levothyroxine 50 mcg tablet 50 mcg PO DAILY RF: 0 citalopram 10 mg tablet 10 mg PO DAILY RF: 0 simvastatin 40 mg tablet 40 mg PO DAILY Qty: 90 RF: 1 isosorbide mononitrate 30 mg tablet extended release 24 hr 30 mg PO DAILY Qty: 90 RF: 2 aspirin [Adult Low Dose Aspirin] 81 mg tablet,delayed release (DR/EC) 81 mg PO DAILY RF: 0 (DME) [place] brace to right See Rx Instructions .Route .MEDSUPPLY Qty: 1 RF: 0 metoprolol succinate 50 mg tablet extended release 24 hr 50 mg PO DAILY RF: 0 nitroglycerin 0.4 mg tablet, sublingual 0.4 mg sublingual Q5M PRN (Reason: Chest Pain) RF: 0 albuterol sulfate [ProAir HFA] 90 mcg/actuation HFA aerosol inhaler 2 puff inhalation Q6H PRN (Reason: Shortness Of Breath) RF: 0 ketoconazole 2 % shampoo 1 applic topical Q14D RF: 0 Plavix 75 mg tablet 75 mg PO DAILY Qty: 60 RF: 2 Discharge Orders: Discharge ED (Routine); Ordered 12/06/21 Ordered By: Suzi Cruz Referrals: Unruly Hernandez NP [Primary Care Provider] - Discharge Diet: Advance as tolerated Discharge Activity: Resume usual activity Patient Instructions: Abdominal Pain (ED) Activity Restrictions/Additional Instructions: Schedule follow-up appointment with your primary care doctor in the next 3 days. Make sure to finish all of the antibiotics. Return immediately to the ER if you develop worsening pain, fever, vomiting, difficulty breathing, or any other worsening symptoms. Coding Level of Care Code ED Wool Presser for Chg Fwd Exam Comprehensive
[2021-12-06] MEDS: iohexol 300 mg/mL 100 mL Btl IV (14:09)
[2021-12-06 14:50] LABS: Add Urine Microscopic? NO; Bilirubin Urine Neg (Negative); Blood Urine Neg (Negative); Glucose Urine UA Norm (Normal); Ketones Urine 1+ (Negative); Leukocyte Esterase Urine Negative (Negative); Nitrate Urine Negative (Negative); Protein Urine Neg (Negative); Specific Gravity, Urine 1.015 (1.005-1.030); Sulfosalicylic Acid Urine Negative (Negative); Urine Appearance Clear (CLEAR); Urine Color Yellow (Yellow); Urobilinogen Urine 4 mg/dL (Negative); pH Urine 8 (5-7)
[2021-12-06 14:53] LABS: Charge for UA Resulting for Rev
== END 2021-12-06 16:19 | disposition home or self-care (01) ==
PROVIDERS: Physician Assistant; Emergency Provider Family Medicine; PCP Nurse Practitioner Family
DX: J44.1 Chronic obstructive pulmonary disease with (acute) exacerbation (principal); K59.00 Constipation, unspecified; Z79.82 Long term (current) use of aspirin; Z79.02 Long term (current) use of antithrombotics/antiplatelets; I25.10 Atherosclerotic heart disease of native coronary artery without angina pectoris; Z86.73 Personal history of transient ischemic attack (TIA), and cerebral infarction without residual deficits; I10 Essential (primary) hypertension; Z87.891 Personal history of nicotine dependence; Z20.822 Contact with and (suspected) exposure to COVID-19
CPT/HCPCS: 74022; 74177; 80053; 81003; 84484; 85025; 87426; 93005; 96360; 99284; J7030; Q9967

== ENCOUNTER 2021-12-07 09:58 | Outpatient (CLI) | payer MEDICARE, MEDICAID, SELFPAY ==
--- NOTE | 2021-12-07 10:13 | FL_ITS ---
WS: [id number] Exam: FL barium swallow [id number] Date/Time of Exam: 12/07/2021 10:18 AM Reason For Exam: OTHER DYSPHAGIA Fluoroscopy time: 1.1 minutes Swallowing function at the level of the oropharynx was normal. The esophagus is smooth in contour wit h normal motility. No esophageal mass or stricture was identified. The esophagus is not displaced. No aspiration or gastroesophageal reflux was observed during fluoroscopy. FL/FL barium swallow [id number] IMPRESSION: 1. Unremarkable esophagram.
== END 2021-12-07 09:59 | disposition home or self-care (01) ==
LOC: RAD 10:08
PROVIDERS: PCP Nurse Practitioner Family; Visit Provider Specialist
DX: R13.19 Other dysphagia (principal)
CPT/HCPCS: 74220

== ENCOUNTER 2021-12-12 08:56 | Outpatient (CLI) | payer MEDICARE, MEDICAID, SELFPAY ==
--- NOTE | 2021-12-12 09:05 | FL_ITS ---
WS: [id number] Modified barium swallow, 12/12/2021 Clinical Data: Other dysphagia Comparison: None. Fluoroscopy time: 3.3 minutes. Findings: In the oral phase there were minimal deficits and residue. The residue cleared with double swallows. There was premature spillage which also cleared with swallowing. In the pharyngeal phase there was apparent penetration with thin liquids. There is residue in the go lecula and piriformis after food but it also cleared with swallows. FL/FL barium swallow modifd [id number] Impression: 1. Minimal residue and premature spillage in the oral phase. 2. Minimal penetration with thin liquids and residue in the vallecula and pirif ormis with food but cleared with swallowing.
== END 2021-12-12 08:57 | disposition home or self-care (01) ==
LOC: RAD 09:02
PROVIDERS: PCP Nurse Practitioner Family; Visit Provider Specialist
DX: R13.19 Other dysphagia (principal)
CPT/HCPCS: 74230; 92611

== ENCOUNTER → 2022-01-17 14:11 | Outpatient (BNVA) | payer OTHER, MEDICAID, SELFPAY | PROVIDERS: PCP Nurse Practitioner Family; Visit Provider Urology | DX: N40.1 Benign prostatic hyperplasia with lower urinary tract symptoms (principal); R97.20 Elevated prostate specific antigen [PSA]; Z80.42 Family history of malignant neoplasm of prostate | CPT/HCPCS: 81003; 84153 ==

== ENCOUNTER 2022-02-12 06:00 | Outpatient (RCR) | payer OTHER, MEDICAID, SELFPAY | END 2022-02-14 23:59 | disposition home or self-care (01) | LOC: AST 06:00 | PROVIDERS: PCP Nurse Practitioner Family; Referring Provider Specialist; Visit Provider Specialist | DX: R13.10 Dysphagia, unspecified (principal) | CPT/HCPCS: 92610 ==

== ENCOUNTER 2022-02-15 06:00 | Outpatient (RCR) | payer OTHER, MEDICAID, SELFPAY | END 2022-03-16 23:59 | disposition home or self-care (01) | LOC: AST 06:00 | PROVIDERS: PCP Nurse Practitioner Family; Referring Provider Specialist; Visit Provider Specialist | DX: R13.10 Dysphagia, unspecified (principal) | CPT/HCPCS: 92526 ==

== ENCOUNTER 2022-03-17 06:00 | Outpatient (RCR) | payer OTHER, MEDICAID, SELFPAY | END 2022-04-16 23:59 | disposition home or self-care (01) | LOC: AST 06:00 | PROVIDERS: PCP Nurse Practitioner Family; Referring Provider Specialist; Visit Provider Specialist | DX: R13.10 Dysphagia, unspecified (principal) | CPT/HCPCS: 92526 ==

== ENCOUNTER 2022-05-27 09:17 | Outpatient (CLI) | payer OTHER, MEDICAID, SELFPAY | END 2022-05-27 09:18 | disposition home or self-care (01) | LOC: LAB 09:19 | PROVIDERS: PCP Nurse Practitioner Family; Visit Provider Urology | DX: R97.20 Elevated prostate specific antigen [PSA] (principal) | CPT/HCPCS: 36415; 81003; 84153 ==

== ENCOUNTER 2022-11-22 10:00 | Outpatient (CLI) | payer OTHER, MEDICAID, SELFPAY ==
[2022-11-22 11:12] LABS: Prostate Specific AG Urology 3.62 ng/mL (0-4)
== END 2022-11-22 10:01 | disposition home or self-care (01) ==
LOC: LAB 10:06
PROVIDERS: PCP Nurse Practitioner Family; Visit Provider Urology
DX: R97.20 Elevated prostate specific antigen [PSA] (principal)
CPT/HCPCS: 36415; 84153

== ENCOUNTER → 2022-11-25 12:46 | Outpatient (BNVA) | payer OTHER, MEDICAID, SELFPAY | PROVIDERS: PCP Nurse Practitioner Family; Visit Provider Urology | DX: N40.1 Benign prostatic hyperplasia with lower urinary tract symptoms (principal); R97.20 Elevated prostate specific antigen [PSA] | CPT/HCPCS: 81003 ==

== ENCOUNTER 2022-12-21 13:03 | Observation (INO) | payer MEDICARE, MEDICAID, SELFPAY ==
[2022-12-21] VITALS (9 sets, daily range): BP systolic 116–141; BP diastolic 69–82; PULSE 73–91; RESP 14–18; TEMP 36.4–37.1; O2SAT 97–98; BMI 24.2
--- NOTE | 2022-12-21 13:15 | XRR_ITS ---
PROCEDURE INFORMATION: Exam: XR Chest Exam date and time: 12/21/2022 1:57 PM Age: 67 years old Clinical indication: Injury or trauma; Fall; Blunt trauma (contusions or hematomas); Additional info: Dyspnea/cough TECHNIQUE: Imaging protocol: Radiologic exam of the chest. Views: 1 view. COMPARISON: CR XR chest 1V portable [id number] 05/13/2021 11:58 AM FINDINGS: Lungs: Evidence for benign healed granulomatous disease. Slight increased interstitial markings left lung base in relation to prior exam, could represent interval mild scarring or minimal interstitial infiltrate. No consolidation or effusion. Pleural spaces: Slight blunting right costophrenic angle in relation to prior exam, which could indicate mild amount of pleural thickening or trace effusion. No pneumothorax. Heart/Mediastinum: Unremarkable. No cardiomegaly. Vasculature: Mild calcification of the thoracic aorta. Bones/joints: Spondylotic change thoracic spine. Soft tissues: Soft tissue folds are seen about both sides of the chest at the mid to upper chest region. XR/XR chest 1V portable [id number] IMPRESSION: 1. Slight increased interstitial markings left lung base with previous exam which could indicate interval mild scarring or minimal interstitial infiltrate. 2. Slight blunting right costophrenic angle in relation to prior exam could also reflect chronic change of interval mild pleural thickening versus acute change of trace effusion. 3. Mild benign healed granulomatous disease change.
--- NOTE | 2022-12-21 13:15 | CTR_ITS ---
PROCEDURE INFORMATION: Exam: CT Head Without Contrast Exam date and time: 12/21/2022 1:27 PM Age: 67 years old Clinical indication: Injury or trauma; Fall; Blunt trauma (contusions or hematomas); With loss of consciousness; Loss of consciousness for 30 minutes or less TECHNIQUE: Imaging protocol: Computed tomography of the head without contrast. Radiation optimization: All CT scans at this facility use at least one of these dose optimization techniques: automated exposure control; mA and/or kV adjustment per patient size (includes targeted exams where dose is matched to clinical indication); or iterative reconstruction. Other protocol: This patient has received 2 known CTs and 0 known cardiac nuclear medicine studies in the 12 months prior to the current study. COMPARISON: CT head wo con* [id number] 04/30/2019 6:58 PM RADIATION DOSE METRICS: Total DLP (mGy-cm): 1087.91 FINDINGS: Brain: [id number] atrophic change with diffuse periventricular leukomalacia or chronic small-vessel disease change, along with bilateral old lacunar infarcts within the basal ganglia. These findings are chronic with prior exam. No intracranial hemorrhage or hematoma is seen. No mass effect or shift of midline structures. No acute large vessel ischemic change. Cerebral ventricles: Ventricular prominence with atrophic change, as noted with prior exam. Paranasal sinuses: Mucosal sinus disease within the visualized right maxillary sinus and a portion of the ethmoid sinuses. Mastoid air cells: Visualized mastoid air cells are well aerated. Bones/joints: Unremarkable. No acute fracture. Soft tissues: Unremarkable. CT/CT head wo con* [id number] IMPRESSION: 1. Chronic changes with prior exam related to [id number] atrophic change and diffuse periventricular leukomalacia or chronic small-vessel disease change, as well as chronic lacunar infarcts of the basal ganglia. 2. No acute intracranial abnormality.
--- NOTE | 2022-12-21 13:16 | CTR_ITS ---
PROCEDURE INFORMATION: Exam: CT Cervical Spine Without Contrast Exam date and time: 12/21/2022 1:27 PM Age: 67 years old Clinical indication: Injury or trauma; Fall; Blunt trauma TECHNIQUE: Imaging protocol: Computed tomography of the cervical spine without contrast. Radiation optimization: All CT scans at this facility use at least one of these dose optimization techniques: automated exposure control; mA and/or kV adjustment per patient size (includes targeted exams where dose is matched to clinical indication); or iterative reconstruction. Other protocol: This patient has received 2 known CTs and 0 known cardiac nuclear medicine studies in the 12 months prior to the current study. COMPARISON: CT neck w con* [id number] 10/05/2020 8:33 AM RADIATION DOSE METRICS: Total DLP (mGy-cm): 161.4 FINDINGS: Bones/joints: [id number] spondylotic change involving cervical vertebra and facets, along with mild disc space narrowing or degenerative disc disease C4-5. Straightening of the cervical curvature C2 through C4 level on the sagittal images, with normal-appearing cervical curvature C5 through C7 levels on the sagittal images, with minimal subluxation C4-5 at the level of mild degenerative disc disease. No fracture or acute osseous abnormality. Paranasal sinuses: Maxillary mucosal sinus disease as noted on CT maxillofacial exam. Lungs: Lung apices are normal. Vasculature: Mild carotid vascular calcification. Soft tissues: Unremarkable. CT/CT cervical spin wo con* [id number] IMPRESSION: Cervical spondylosis along with loss of the normal cervical curvature, as noted above. No fracture identified.
--- NOTE | 2022-12-21 13:20 | CTR_ITS ---
PROCEDURE INFORMATION: Exam: CT Maxillofacial Without Contrast Exam date and time: 12/21/2022 1:32 PM Age: 67 years old Clinical indication: Injury or trauma; Fall; Blunt trauma (contusions or hematomas); Cheek bone; Right TECHNIQUE: Imaging protocol: Computed tomography of the face without contrast. Radiation optimization: All CT scans at this facility use at least one of these dose optimization techniques: automated exposure control; mA and/or kV adjustment per patient size (includes targeted exams where dose is matched to clinical indication); or iterative reconstruction. Other protocol: This patient has received 2 known CTs and 0 known cardiac nuclear medicine studies in the 12 months prior to the current study. COMPARISON: CT head wo con* [id number] 12/21/2022 1:27 PM RADIATION DOSE METRICS: Total DLP (mGy-cm): 524.88 FINDINGS: Orbital cavities: Orbits are normal. Globes are unremarkable. Bones/joints: No fracture or acute osseous abnormality. Paranasal sinuses: See Nasal cavity finding. Soft tissues: Soft tissue swelling and/or hematoma right facial soft tissues in relation to the left. Nasal cavity: Suggestion of previous nasal antral windows. Extensive mucosal opacity or sinus disease of the right maxillary sinus with mild mucosal sinus disease of the peripheral left maxillary sinus, with maxillary mucosal sinus into the adjacent nasal cavity, particularly on the right, and involving a portion of the ethmoid sinuses bilaterally. Remainder of the sinuses are clear. CT/CT facial bones wo con* [id number] IMPRESSION: 1. Soft tissue swelling right facial region. 2. No fracture identified. 3. Mucosal sinus disease as noted above.
--- NOTE | 2022-12-21 13:21 | W.ED.SYNCOPE ---
HPI - Syncope General: Chief Complaint: Syncope Stated Complaint: +LOC S/P FALL Time Seen by Provider: 12/21/22 13:08 Source: patient Mode of arrival: EMS History of Present Illness: 67-year-old male presents emergency room via EMS after a fall at home he was getting out of his truck he was going to cough something up and he had a syncopal episode evidently this is been going on for some time he said similar episodes when he gets constipated. They have had extensive work-up for both and he has had significant weight loss per the nothing is been found. He landed on the right zygomatic arch has an abrasion there. He is confused and disoriented which the says is new for him he is on Plavix. Denies any other pain or injury anywhere else. There was no seizure-like activity. MD complaint: loss of consciousness Onset (ago): minute(s) Prodromal symptoms: lightheaded Witnessed: Yes - by Bystander Context: standing up Injuries sustained associated with event: face Associated symptoms: Reports weakness; Deny abdominal pain, chest pain, fever(s), headache(s), lightheadedness, nausea, short of breath or vertigo Treatments prior to arrival: other (C-collar applied) Review of Systems Const: Denies: fever(s), chills, fatigue or malaise ENMT: Denies: throat pain, ear or mastoid pain, nasal discharge or nasal congestion Card: Denies: chest pain or lightheadedness Resp: Denies: dyspnea, productive cough or non-productive cough GI: Denies: abdominal pain or nausea : Denies: flank pain, dysuria, urinary frequency or urinary urgency Skin/Breast: Denies: rash or pruritus Neuro: Denies: headache(s) or vertigo PFS ED PFSH: Medical History Atherosclerosis of coronary artery CAD (coronary artery disease) COPD (chronic obstructive pulmonary disease) CVA (cerebral vascular accident) Depression Elevated PSA GERD (gastroesophageal reflux disease) HTN (hypertension) Hypothyroid Osteoarthritis PAD (peripheral artery disease) Surgical History H/O carpal tunnel repair Hx of colonoscopy (03/06/21) Diverticulosis-10 years Family History Father , AT AGE 71 Myocardial infarction (lateral wall) Hyperlipidemia Brain tumor Mother , AT AGE 58 Hyperlipidemia Headache, migraine History of heart attack Brother Cancer COLON Social History Smoking and tobacco status: former smoker Alcohol intake: never Marital status: Life Partner Current occupational status: disabled History of recent travel: No Physical Exam Const: GENERAL APPEARANCE: cooperative and comfortable NUTRITIONAL APPEARANCE: cachectic ORIENTATION/CONSCIOUSNESS: Yes awake, Yes oriented to person, Yes oriented to place and Yes oriented to time HENMT: COMMON NORMALS: normocephalic, atraumatic and hearing grossly normal bilaterally HEAD & SCALP: normocephalic and atraumatic Resp: COMMON NORMALS: normal respiratory effort, No retractions, No use of accessory muscles and clear to auscultation bilaterally AUSCULTATION: clear to auscultation bilaterally Cardio: COMMON NORMALS: regular rate, regular rhythm and No murmurs present (Cardio) RATE: regular rate RHYTHM: regular rhythm GI: COMMON NORMALS: Soft to palpation and No hepatosplenomegaly present AUSCULTATION: Yes normoactive bowel sounds PALPATION: Yes Soft to palpation, No Tenderness to palpation present (GI), No Guarding due to palpation present (GI) and Yes No hepatosplenomegaly present Extremity: COMMON NORMALS: normal to inspection, capillary refill normal, no clubbing, cyanosis or edema, no calf tenderness and no pedal edema Neuro: SENSORIUM/ORIENTATION: Yes oriented to person, Yes oriented to place and Yes oriented to time Skin: COMMON NORMALS: no rashes or lesions noted GENERAL SKIN EXAM: no rashes or lesions noted Course Vital Signs: Vital signs: Vital Signs Temperature 98.2 F 12/22/22 07:31 Pulse Rate 74 12/22/22 12:00 Respiratory Rate 19 H 12/22/22 12:00 Blood Pressure 131/79 12/22/22 12:00 Pulse Oximetry 97 12/22/22 12:00 Oxygen Delivery Me thod 12/22/22 12:00 MDM - Syncope Medical Decision Making Labs imaging and EKGs reviewed nothing acute at this time. No acute ST changes noted patient is awake and alert he has abrasion over the right zygomatic arch and right supraorbital ridge but no other injuries we will try to stand him up and walk him he is unable to stand even at the bedside. He is still disoriented as to time place and person. Some of this I believe may be underlying connected with his weight loss and previous syncopal episodes that he has had. Discussed with the hospitalist will admit for work-up for metabolic encephalopathy and his syncope. Suspect underlying occult tumor Medical Records I reviewed the patient's medical records. Lab Data I reviewed the patient's lab results. 12/21/22 13:11 12/21/22 13:11 Radiology Impressions Chest X-Ray 12/21/22 13:15 IMPRESSION: 1. Slight increased interstitial markings left lung base with previous exam which could indicate interval mild scarring or minimal interstitial infiltrate. 2. Slight blunting right costophrenic angle in relation to prior exam could also reflect chronic change of interval mild pleural thickening versus acute change of trace effusion. 3. Mild benign healed granulomatous disease change. Head CT 12/21/22 13:15 IMPRESSION: 1. Chronic changes with prior exam related to [id number] atrophic change and diffuse periventricular leukomalacia or chronic small-vessel disease change, as well as chronic lacunar infarcts of the basal ganglia. 2. No acute intracranial abnormality. Cervical Spine CT 12/21/22 13:16 IMPRESSION: Cervical spondylosis along with loss of the normal cervical curvature, as noted above. No fracture identified. Face CT 12/21/22 13:20 IMPRESSION: 1. Soft tissue swelling right facial region. 2. No fracture identified. 3. Mucosal sinus disease as noted above. Carotid Doppler Study 12/21/22 15:50 IMPRESSION: 1. Visually there is lbum-fn-[id number] atherosclerotic plaque in the right carotid bulb, right internal carotid artery, left common carotid artery, and left internal carotid artery. 2. Peak systolic velocity of the mid left internal carotid artery is 199 cm/s corresponding to between 50 and 69% stenosis. REFERENCES: SRU CRITERIA. The degree of internal carotid artery stenosis is based on criteria defined by the Society of Radiologists in Ultrasound (SRU). Normal is no stenosis. Mild is less than 50% stenosis. Moderate is 50-69% stenosis. Severe is greater than 69% stenosis to near occlusion. Near occlusion is a markedly narrowed lumen. Total occlusion is no detectable patent lumen. Laboratory Results WBC 8.9 10^3/uL (4.0-10.0) 12/21/22 13:11 RBC 4.81 10^6/uL (4.1-5.3) 12/21/22 13:11 Hgb 14.6 g/dL (11.7-16.6) 12/21/22 13:11 Hct 44.2 % (42.0-52.0) 12/21/22 13:11 MCV 91.9 fl (80-94) 12/21/22 13:11 MCH 30.4 pg (28.0-34.0) 12/21/22 13:11 MCHC 33.0 g/dL (30.0-36.0) 12/21/22 13:11 RDW 13.1 % (12.1-15.1) 12/21/22 13:11 Plt Count 251 10^3/cmm (130-400) 12/21/22 13:11 MPV 10.1 fL (7.4-10.4) 12/21/22 13:11 Neut % (Auto) 62.2 % 12/21/22 13:11 Lymph % (Auto) 32.1 % 12/21/22 13:11 [place] % (Auto) 4.3 % 12/21/22 13:11 Eos % (Auto) 0.4 % 12/21/22 13:11 Baso % (Auto) 0.7 % 12/21/22 13:11 Neut # (Auto) 5.55 10^3/uL (1.8-7.7) 12/21/22 13:11 Lymph # (Auto) 2.9 10^3/uL (0.8-4.8) 12/21/22 13:11 [place] # (Auto) 0.4 10^3/uL (0.2-0.9) 12/21/22 13:11 Eos # (Auto) 0.0 10^3/uL (0.0-0.8) 12/21/22 13:11 Baso # (Auto) 0.1 10^3/uL (0.0-0.1) 12/21/22 13:11 Nucleated RBC % (auto) 0 % 12/21/22 13:11 Nucleated RBCs # 0.0 /100WBC 12/21/22 13:11 Sodium 140 mmol/L (136-145) 12/21/22 13:11 Potassium 4.0 mmol/L (3.5-5.1) 12/21/22 13:11 Chloride 101 mmol/L (98-107) 12/21/22 13:11 Carbon Dioxide 28 mmol/L (22-29) 12/21/22 13:11 Anion Gap 15.0 (5-19) 12/21/22 13:11 BUN 17 mg/dL (8-23) 12/21/22 13:11 Creatinine 0.9 mg/dL (0.7-1.2) 12/21/22 13:11 GFR Calculation 84.2 mL/min (90-130) L 12/21/22 13:11 Glucose 122 mg/dL (65-115) H 12/21/22 13:11 Calculated Osmolality 293 mOsm/kg (285-295) 12/21/22 13:11 Calcium 9.0 mg/dL (8.5-10.5) 12/21/22 13:11 Total Bilirubin 0.4 mg/dL (0.15-1.2) 12/21/22 13:11 AST 27 U/L (0-40) 12/21/22 13:11 ALT 16 U/L (0-41) 12/21/22 13:11 Alkaline Phosphatase 82 U/L (40-130) 12/21/22 13:11 Total Protein 6.8 g/dL (6.6-8.7) 12/21/22 13:11 Albumin 4.2 g/dL (3.5-5.2) 12/21/22 13:11 Globulin 2.6 g/dL (1.3-4.6) 12/21/22 13:11 Vitamin B12 651 pg/mL (232-1245) 12/21/22 13:11 Procalcitonin 0.02 ng/mL (0-0.5) 12/21/22 13:11 TSH 2.15 uIU/mL (0.27-4.20) 12/21/22 13:11 Free T4 1.17 ng/dL (0.82-1.77) 12/21/22 13:11 Discharge Plan Discharge Patient Disposition: Placed in Observation Admit Provider: Krystyna Holbrook Clinical Impression: Encephalopathy, CAD (coronary artery disease), HTN (hypertension), Vasovagal syncope, Recent unexplained weight loss Coding Level of Care Code ED General Service Technician for Chg Fwd Exam Detailed
--- NOTE | 2022-12-21 13:23 | ECG_ITS ---
[facility] Test Date: 2022-12-21 Pat Name: Dariusz Leigh Department: Room: Gender: Male [place] Former: : 1955 Requested By: Rigo Jerry Order Number: [id number] Jamal MD: Marilu Perrin M.D. Measurements Intervals [place] Rate: 76 P: 105 GA: 137 QRS: 120 QRSD: 86 T: 121 QT: 378 QTc: 425 Interpretive Statements SINUS RHYTHM ARM LEADS REVERSED [INVERTED P AND QRS IN I] Compared to ECG 12/06/2021 10:18:31 No significant changes Electronically Signed On 12-21-2022 18:23:12 [employer] LOAN PROCESSOR by Marilu Perrin M.D. [id number]
[2022-12-21 13:32] LABS: Basophils # 0.1 10^3/uL (0.0-0.1); Basophils % 0.7 %; Eosinophils % 0.4 %; Hematocrit 44.2 % (42.0-52.0); Hemoglobin 14.6 g/dL (11.7-16.6); Lymphocytes # 2.9 10^3/uL (0.8-4.8); Lymphocytes % 32.1 %; Mean Corpuscular Hemoglobin 30.4 pg (28.0-34.0); Mean Corpuscular Volume 91.9 fl (80-94); Mean Platelet Volume 10.1 fL (7.4-10.4); Monocytes # 0.4 10^3/uL (0.2-0.9); Monocytes % 4.3 %; Neutrophils # 5.55 10^3/uL (1.8-7.7); Neutrophils % 62.2 %; Nucleated Red Blood Cells % 0 %; Platelet Count 251 10^3/cmm (130-400); Red Blood Count 4.81 10^6/uL (4.1-5.3); Red Cell Distribution Width 13.1 % (12.1-15.1); White Blood Count 8.9 10^3/uL (4.0-10.0)
[2022-12-21 13:40] LABS: Alanine Aminotransferase 16 U/L (0-41); Albumin Level 4.2 g/dL (3.5-5.2); Alkaline Phosphatase 82 U/L (40-130); Aspartate Amino Transferase 27 U/L (0-40); Blood Urea Nitrogen 17 mg/dL (8-23); Carbon Dioxide 28 mmol/L (22-29); Chloride 101 mmol/L (98-107); Globulin 2.6 g/dL (1.3-4.6); Glomerular Filtration Rate 84.2 mL/min (90-130); Glucose 122 mg/dL (65-115); Osmolality Calculated 293 mOsm/kg (285-295); Sodium 140 mmol/L (136-145); Total Bilirubin 0.4 mg/dL (0.15-1.2); Total Protein 6.8 g/dL (6.6-8.7)
--- NOTE | 2022-12-21 15:41 | PM.HP ---
Providers/Chief Complaint Primary Care Provider: Unruly Hernandez NP Chief Complaint: +LOC S/P FALL History of Present Illness Dariusz Leigh is a 67 year old male with past medical history of CAD, COPD, stroke, depression, GERD, hypertension, hypothyroidism, osteoarthritis, peripheral arterial disease who presented to the hospital today for syncopal episode. He states has been going on for quite some time especially when he gets constipated. It seems he is having vasovagal syncope from what the is describing. states that they have had extensive work-up done and he has been losing weight which is unintentional. Today he landed on the right side of his face and has an abrasion there at the right zygomatic arch. Patient is confused and disoriented which is new for him. Patient is on aspirin and Plavix. No seizure-like activity noted at home. Patient is redirectable does follow commands but appears to be confused. He does not know where he is or what is going on. Patient does feel lightheaded before going down. There is no history of any arrhythmias reported. In the ER today on arrival blood pressure 138/82, respiratory 14, pulse 77, temperature 98.8, saturating 98% on room air. EKG showed sinus rhythm. Labs unremarkable. Imaging studies were obtained. Face CT shows soft tissue swelling in the right facial region, no fracture identified. CT cervical spine shows cervical spondylosis along with loss of normal curvature. Head CT shows chronic changes with prior exams related to mild to moderate atrophic change and diffuse periventricular leukomalacia chronic small vessel disease change as well as lacunar infarcts of basal ganglia. No acute intracranial abnormality. Chest x-ray shows slight increased interstitial markings left lung base with previous exam which could indicate interval mild scarring or minimal interstitial infiltrate. Slight blunting of right costophrenic angle in relation to prior exam could also reflect chronic change of interval and mild pleural thickening versus acute change of trace effusion. Mild benign healed clinical lactose disease change. Patient did have a modified barium swallow done on 12 December 2021 which showed minimal residue in premature spillage and oral phase. Minimal penetration with thin liquids and residue in vallecula and piriforms with fluid but cleared with swallowing. He also had a CT abdomen pelvis done last year in November which did not show any gross abnormalities. Medications/Allergies Home Medications Medication Instructions Recorded Confirmed Last Taken Type citalopram 10 mg tablet 10 mg PO DAILY 02/17/20 12/21/22 12/21/22 History fluticasone 250 mcg-salmeterol 50 1 inh inhalation BID 02/17/20 12/21/22 12/21/22 History mcg/dose blistr powdr for inhalation (Advair Diskus) fluticasone propionate 50 1 spray intranasal DAILY 02/17/20 12/21/22 12/21/22 History mcg/actuation nasal spray,suspension levothyroxine 50 mcg tablet 50 mcg PO DAILY 02/17/20 12/21/22 12/21/22 History omeprazole 20 mg capsule,delayed 20 mg PO BID 02/17/20 12/21/22 12/21/22 History release albuterol sulfate 90 mcg/actuation 2 puff inhalation Q6H PRN 06/04/21 12/21/22 Unknown History aerosol inhaler (ProAir HFA) Shortness Of Breath nitroglycerin 0.4 mg sublingual 0.4 mg sublingual Q5M PRN Chest 06/04/21 12/21/22 Unknown History tablet Pain psyllium husk (aspartame) 3.4 3.4 ea PO DAILY PRN Constipation 01/17/22 12/21/22 Unknown History gram/5.8 gram oral powder (Metamucil [facility] Fiber) clopidogrel 75 mg tablet (Plavix) 75 mg PO DAILY #90 tabs 07/08/22 12/21/22 12/21/22 Rx ipratropium 20 mcg-albuterol 100 1 puff inhalation Q6H 09/13/22 12/21/22 12/21/22 History mcg/actuation mist for inhalation (Combivent Respimat) isosorbide mononitrate 30 mg 15 mg PO BID #90 tabs 10/18/22 12/21/22 12/21/22 Rx tablet,extended release 24 hr simvastatin 40 mg tablet 40 mg PO DAILY #90 tabs 10/18/22 12/21/22 12/20/22 Rx Allergies Allergy/AdvReac Type Severity Reaction Status Date / Time No Known Allergies Allergy Verified 12/21/22 13:10 PFSH Acute PFSH: Medical History Atherosclerosis of coronary artery CAD (coronary artery disease) COPD (chronic obstructive pulmonary disease) CVA (cerebral vascular accident) Depression Elevated PSA GERD (gastroesophageal reflux disease) HTN (hypertension) Hypothyroid Osteoarthritis PAD (peripheral artery disease) Surgical History H/O carpal tunnel repair Hx of colonoscopy (03/06/21) Diverticulosis-10 years Family History Father , AT AGE 71 Myocardial infarction (lateral wall) Hyperlipidemia Brain tumor Mother , AT AGE 58 Hyperlipidemia Headache, migraine History of heart attack Brother Cancer COLON Social History Smoking and tobacco status: former smoker Alcohol intake: never Marital status: Life Partner Current occupational status: disabled History of recent travel: No Vitals/I&O/Wt Last Vital Signs Temp 98.8 F 12/21/22 13:03 Pulse 77 12/21/22 13:03 Resp 14 12/21/22 13:03 BP 136/70 12/21/22 13:44 Pulse Ox 98 12/21/22 13:44 O2 Del Method 12/21/22 13:03 Weight last 48 hrs Weight 68.039 kg Physical Exam Narrative: General: Alert but not oriented., patient seen laying in bed. Redirectable and follows commands. Confused. at bedside. Bruise and swelling over left cheek area. Some dried blood noted there. HEENT: Normocephalic, atraumatic, EOMI, breathing comfortably on room air. Cardio: Regular rate rhythm, normal S1-S2, Respiratory: Clear to auscultation bilaterally no wheezes no rhonchi. GI: Abdomen soft, nontender, nondistended, bowel sounds + Extremities: no edema, no cyanosis Neuro: Nonfocal, left side weaker than right due to previous stroke. able to lift right leg off the bed. strength 3/5 RLE, 2/5 LLE, Upper extremity strength symmetrical and 4/5 b/l. CN intact. gait not tested due to risk of syncope. Data 12/21/22 13:11 12/21/22 13:11 A&P Assessment and plan (1) Vasovagal syncope: (2) Recent unexplained weight loss: (3) Encephalopathy: (4) CVA (cerebral vascular accident): Qualifiers: CVA mechanism: unspecified Qualified Code(s): I63.9 - Cerebral infarction, unspecified (5) HTN (hypertension): (6) COPD (chronic obstructive pulmonary disease): (7) PAD (peripheral artery disease): (8) Atherosclerosis of coronary artery: (9) CAD (coronary artery disease): Plan #Syncope, most likely vasovagal? #History of CAD #Hypothyroidism #COPD ? Patient has been having syncopal episodes mostly be due to postural change. Also when he is constipated. I suspect he may have vasovagal syncope. There could also be an occult underlying arrhythmia. So far face CT, neck CT did not show any acute fractures. ? Chest x-ray did show slight increased markings in left lung base which could be interstitial infiltrate or mild scarring. There also may be mild pleural thickening versus acute change of trace effusion?. There does not seem to be any clinical signs of infection at this time. ? Check urinalysis and urine culture ? Check procalcitonin ? Check orthostatic vitals ? Check TSH ? Placement telemetry ? Check vitamin B12 ? Fall precautions ? Aspiration precautions ? DuoNeb every 4 hours as needed ? Continue Plavix, levothyroxine, omeprazole, simvastatin at this time ? Consider CT chest abdomen pelvis. Patient has been losing weight unintentionally. I would like to rule out hypethyroidism before doing further imaging studies at this point. Family states they have been recommended a full body CT scan with contrast by PCP but have not gotten it done yet. - We will monitor patient in the hospital on telemetry - Check echo ? Check carotid Dopplers - Hold imdur. - Uses depends. - On puree and thickened liquid diet, chin tuck technique, aspiration precautions. Full code DVT prophylaxis: Heparin SQ twice daily Check speech eval. Attestations Medical Necessity Statement*: Observation admission for work-up of syncope. Coding Level of Care Code Acute Code for Chg Fwd Diagnoses Vasovagal syncope R55 Recent unexplained weight loss R63.4 Encephalopathy G93.40 CVA (cerebral vascular accident) I63.9 CVA mechanism: unspecified HTN (hypertension) I10 COPD (chronic obstructive pulmonary disease) J44.9 PAD (peripheral artery disease) I73.9 Atherosclerosis of coronary artery I25.10 CAD (coronary artery disease) I25.10
--- NOTE | 2022-12-21 15:50 | USR_ITS ---
PROCEDURE INFORMATION: Exam: US Duplex Bilateral Extracranial Arteries, Carotid Arteries Exam date and time: 12/21/2022 6:20 PM Age: 67 years old Clinical indication: Syncope and collapse TECHNIQUE: Imaging protocol: Real-time Duplex ultrasound scan of the bilateral carotid and vertebral arteries combining lemus scale, color Doppler and spectral waveform analysis. Bilateral exam. Exam focused on the carotid arteries. COMPARISON: CT facial bones wo con* [id number] 12/21/2022 1:32 PM FINDINGS: Tubes, catheters and devices: Visually there is nlhe-og-ebvhurms atherosclerotic plaque in the right carotid bulb, right internal carotid artery, left common carotid artery, and left internal carotid artery. Right common carotid artery: Peak systolic velocity is 62 cm/s proximally, 82 cm/s mid, and 57 cm/s distally. Right internal carotid artery: Peak systolic velocity is 82 centimeters/second proximally, 92 cm/s mid, and 53.5 cm/s distally. Right ICA/CCA ratio: Within normal limits. Right external carotid artery: No stenosis in the origin. Right vertebral artery: Peak systolic velocity is 64 cm/s. Antegrade flow. Antegrade flow. Left common carotid artery: Peak systolic velocity is 86 cm/s proximally, 114 cm/s mid, and 85 cm/s distally. Left internal carotid artery: Peak systolic velocity is 52 cm/s proximally, 199 cm/s mid, and 102 cm/s distally. 199 cm/s corresponds to between 50 and 69% stenosis. Left ICA/CCA ratio: Within normal limits. Left external carotid artery: No stenosis in the origin. Left vertebral artery: Peak systolic velocity is 28 cm/s. Antegrade flow. US/CV carotid duplex BI* [id number] IMPRESSION: 1. Visually there is wurt-pv-cybbvrrl atherosclerotic plaque in the right carotid bulb, right internal carotid artery, left common carotid artery, and left internal carotid artery. 2. Peak systolic velocity of the mid left internal carotid artery is 199 cm/s corresponding to between 50 and 69% stenosis. REFERENCES: SRU CRITERIA. The degree of internal carotid artery stenosis is based on criteria defined by the Society of Radiologists in Ultrasound (SRU). Normal is no stenosis. Mild is less than 50% stenosis. Moderate is 50-69% stenosis. Severe is greater than 69% stenosis to near occlusion. Near occlusion is a markedly narrowed lumen. Total occlusion is no detectable patent lumen.
[2022-12-21 16:56] LABS: Free T4 Free Thyroxine 1.17 ng/dL (0.82-1.77); Thyroid Stimulating Hormone 2.15 uIU/mL (0.27-4.20)
[2022-12-21] MEDS: sodium chloride 0.9% 1,000 ML 999 ML IV (16:56)
[2022-12-21 17:02] LABS: Procalcitonin 0.02 ng/mL (0-0.5)
[2022-12-21] MEDS: sodium chloride 0.9% 1,000 ML 75 ML IV (17:16)
[2022-12-21] MEDS: heparin 5,000 unit/mL INJ 1 mL 5000 UNIT SUBCUT (17:17)
[2022-12-21 17:27] LABS: Vitamin B12 651 pg/mL (232-1245)
[2022-12-21 20:01] LABS: Add Urine Microscopic? NO; Charge for UA Resulting for Rev
[2022-12-21 20:32] LABS: Bilirubin Urine Neg (Negative); Blood Urine Neg (Negative); Glucose Urine UA Norm (Normal); Ketones Urine Negative (Negative); Leukocyte Esterase Urine Negative (Negative); Nitrate Urine Negative (Negative); Protein Urine Neg (Negative); Urine Appearance Clear (CLEAR); Urine Color Yellow (Yellow); Urobilinogen Urine Neg (Negative); pH Urine 7 (5-7)
[2022-12-21] MEDS: atorvastatin 40 mg Tablet 20 MG PO (21:28)
[2022-12-22] VITALS (11 sets, daily range): BP systolic 103–152; BP diastolic 64–86; PULSE 66–83; RESP 13–21; TEMP 36.6–36.8; O2SAT 94–100
[2022-12-22] MEDS: sodium chloride 0.9% 1,000 ML 75 ML IV ×2 (02:15→18:23)
[2022-12-22] MEDS: heparin 5,000 unit/mL INJ 1 mL 5000 UNIT SUBCUT ×2 (05:11→18:22)
[2022-12-22 05:37] LABS: Basophils # 0.1 10^3/uL (0.0-0.1); Basophils % 0.9 %; Eosinophils # 0.1 10^3/uL (0.0-0.8); Hematocrit 38.6 % (42.0-52.0); Hemoglobin 12.6 g/dL (11.7-16.6); Lymphocytes # 1.9 10^3/uL (0.8-4.8); Mean Corpuscular HGB Conc 32.6 g/dL (30.0-36.0); Mean Corpuscular Hemoglobin 30.9 pg (28.0-34.0); Mean Corpuscular Volume 94.6 fl (80-94); Mean Platelet Volume 10.3 fL (7.4-10.4); Monocytes # 0.4 10^3/uL (0.2-0.9); Monocytes % 6.1 %; Neutrophils # 3.44 10^3/uL (1.8-7.7); Neutrophils % 58.7 %; Nucleated Red Blood Cells % 0 %; Platelet Count 183 10^3/cmm (130-400); Red Blood Count 4.08 10^6/uL (4.1-5.3); Red Cell Distribution Width 13.3 % (12.1-15.1); White Blood Count 5.9 10^3/uL (4.0-10.0)
[2022-12-22 05:56] LABS: Anion Gap 10.7 (5-19); Blood Urea Nitrogen 12 mg/dL (8-23); Calcium 8.2 mg/dL (8.5-10.5); Carbon Dioxide 26 mmol/L (22-29); Chloride 104 mmol/L (98-107); Glomerular Filtration Rate 112.5 mL/min (90-130); Glucose 75 mg/dL (65-115); Magnesium 1.8 mg/dL (1.7-2.3); Osmolality Calculated 282 mOsm/kg (285-295); Phosphorus 2.7 mg/dL (2.5-4.5); Potassium 3.7 mmol/L (3.5-5.1); Sodium 137 mmol/L (136-145)
--- NOTE | 2022-12-22 06:00 | USCV_ITS ---
Dariusz Leigh Age: 67 Gender: M : 1955 Exam Date: 12/22/2022 08:42 Ordering Phys: Krystyna Holbrook MD Technologist: TOO Exam Location: [facility] – [place] Indication: Syncope BP: 149 / 86 HR: 69 Rhythm: Sinus Technical Quality: Adequate MEASUREMENTS (Male / Female) Normal Values 2D ECHO LV Diastolic Diameter PLAX 4.3 cm 4.2 - 5.9 / 3.9 - 5.3 cm LV Systolic Diameter PLAX 2.5 cm IVS Diastolic Thickness 0.6 cm 0.6 - 1.0 / 0.6 - 0.9 cm IVS Systolic Thickness 0.9 cm LVPW Diastolic Thickness 0.5 cm 0.6 - 1.0 / 0.6 - 0.9 cm LVPW Systolic Thickness 0.9 cm LVOT Diameter 1.8 cm LV Ejection Fraction 2D Teich 72.8 % LV Ejection Fraction MOD 2C 67.6 % LV Ejection Fraction 2C AL 68.1 % LA Diameter 2.8 cm IVC Diameter 1.1 cm M-MODE Aortic Annulus Diameter 2.4 cm LA Ao Ratio MM 1.3 MV E Point Septal Separation 1.5 cm DOPPLER AV Peak Velocity 93.0 cm/s LVOT Peak Velocity 97.0 cm/s AV Area Cont Eq vti 2.8 cm squared AV Area Cont Eq pk 2.7 cm squared MV Area PHT 3.7 cm squared Mitral E to A Ratio 0.8 MV E' Velocity 49.0 cm/s Mitral E to MV E' Ratio 11.5 Mitral E to LV E' Lateral Ratio 11.4 Mitral E to LV E' Septal Ratio 11.8 TR Peak Velocity 178.0 cm/s TR Peak Gradient 12.7 mmHg TV Peak E Velocity 59.0 cm/s PV Peak Velocity 82.0 cm/s FINDINGS Left Ventricle Normal left ventricular size, systolic function and wall thickness, with no regional wall motion abnormalities. Left ventricular ejection fraction is estimated at 65 %. Normal diastolic function. Right Ventricle Normal right ventricular size and systolic function. RVSP could not be calculated due to incomplete tricuspid regurgitation velocity profile. Right Atrium Normal right atrial size. Left Atrium Normal left atrial size. Mitral Valve Severe mitral annular calcification. Moderately thickened mitral valve. Chordal calcification noted. No mitral valve stenosis. No mitral valve regurgitation. Aortic Valve Structurally normal trileaflet aortic valve. No aortic valve stenosis. No aortic valve regurgitation. Tricuspid Valve Structurally normal tricuspid valve. No tricuspid valve stenosis. Trace tricuspid valve regurgitation. Pulmonic Valve Structurally normal pulmonic valve. Trace pulmonary valve regurgitation. Pericardium No pericardial effusion. Aorta Normal size aortic root and proximal ascending aorta. IVC Normal IVC dimension with >50% respiratory change of the inferior vena cava. CONCLUSIONS 1. Normal left ventricular size, systolic function and wall thickness, with no regional wall motion abnormalities. Left ventricular ejection fraction is estimated at 65 %. Normal diastolic function. 2. Normal right ventricular size and systolic function. 3. No significant valvular abnormality. 4. No significant change when compared to study dated 07/24/2016. Marilu Perrin MD (Electronically Signed) Final Date: 22 December 2022 12:46 S
[2022-12-22] MEDS: polyethylene glycol 3350 Pkt 17 gm PO (08:13)
[2022-12-22] MEDS: levothyroxine 50 mcg Tablet PO (08:14)
[2022-12-22] MEDS: clopidogrel 75 mg Tablet PO (08:14)
[2022-12-22] MEDS: citalopram 20 mg Tablet 10 MG PO (08:14)
[2022-12-22] MEDS: pantoprazole DR 40 mg Tablet PO (08:14)
--- NOTE | 2022-12-22 10:54 | PC.OT ---
OT orders received and chart reviewed. Patient undergoing additional testing. Will attempt evaluation at later time. Vamsi Barton, OTR/L
[2022-12-22] MEDS: acetaminophen 325 mg Tablet 650 MG PO (12:52)
--- NOTE | 2022-12-22 15:43 | PM.PN ---
Subjective Subjective: Carotid artery ultrasound returned with left-sided ICA stenosis 50 to 69%. He has not had any repeat episodes of syncope while here in the hospital. Orthostatics have been normal. Patient and his 's chief complaint at this time is worsening dysphagia over the past year. He has had some swallow difficulty since his stroke approximately 1 year ago, however it is becoming worse over the past 3 to 4 months. reports multiple vasovagal episodes while eating and witnessed choking. Has also had additional vasovagal episodes while bearing down for defecation. He is mostly constipated. Weight loss of 35 pounds over last 3-4 months remains their biggest concern,. Medications: Reviewed: Yes Vitals/I&O/Wt Last Vital Signs Temp 98.2 F 12/22/22 07:31 Pulse 74 12/22/22 12:00 Resp 19 H 12/22/22 12:00 BP 131/79 12/22/22 12:00 Pulse Ox 97 12/22/22 12:00 O2 Del Method 12/22/22 12:00 12/22/22 12/22/22 12/22/22 06:59 14:59 22:59 Intake Total 1153.75 / 2653.75 720 / 720 Output Total 900 / 1250 450 / 450 Balance 253.75 / 1403.75 270 / 270 Weight last 48 hrs Weight 48.081 kg Weight 68.039 kg Physical Exam Narrative: General: No acute distress, AO x3 HEENT: PERRLA, pupils bilaterally equal and reactive, pallors not seen , dressing over right cheek swelling. Chest: Normal vesicular breath sounds, no added sounds, equal good air entry bilaterally CVS: S1-S2 regular, no murmurs, no tachycardia, no gallops, no rubs Abdomen: Soft, nontender, no organomegaly, bowel sounds present Neuro: No focal deficits, no facial deformity, AO x3, power 5/5 in all limbs Data 12/22/22 04:47 12/22/22 04:47 A&P Assessment and plan (1) Vasovagal syncope: (2) Recent unexplained weight loss: (3) Encephalopathy: (4) CVA (cerebral vascular accident): Qualifiers: CVA mechanism: unspecified Qualified Code(s): I63.9 - Cerebral infarction, unspecified (5) HTN (hypertension): (6) COPD (chronic obstructive pulmonary disease): (7) PAD (peripheral artery disease): (8) Atherosclerosis of coronary artery: (9) CAD (coronary artery disease): Plan #Syncope, most likely vasovagal per description. She describes gagging while eating leading to vasovagal episode. Also has syncope on bearing down when constipated. Thus far CT head without acute abnormalities Carotid artery US with left side 50-69% stenosis, less likely to explain vasovagal episodes. Will need outpatient w/up with vascular surgery. Orthostatics normal No arrhythmias noted on telemetry Echo without acute abnormalities, no significant valvular dysfunction # worsening dysphagia Aspiration noted on swallow eval from last year and again today needs modified dysphagia diet on speech therapy assessment We will check a swallow study to assess for any interim worsening Will check CT neck to evalute for any neck masses which would explain dysphagia and or laryngeal nerve compression. We will additionally check CT of the abdomen and pelvis given reported weight loss and chronic constipation which could signal an underlying colonic mass or malignancy. #History of CAD: Continue Plavix, simvastatin at this time #Hypothyroidism: TSH currently normal range #COPD Not currently exacerbated ? DuoNeb every 4 hours as needed Full code DVT prophylaxis: Heparin SQ twice daily Attestations Medical Necessity Statement*: needs further imaging as above for worsening dysphagia, unintentional weight loss Coding Level of Care Code Acute Code for Chg Fwd Diagnoses Vasovagal syncope R55 Recent unexplained weight loss R63.4 Encephalopathy G93.40 CVA (cerebral vascular accident) I63.9 CVA mechanism: unspecified HTN (hypertension) I10 COPD (chronic obstructive pulmonary disease) J44.9 PAD (peripheral artery disease) I73.9 Atherosclerosis of coronary artery I25.10 CAD (coronary artery disease) I25.10
--- NOTE | 2022-12-22 15:52 | CTR_ITS ---
PROCEDURE INFORMATION: Exam: CT Abdomen And Pelvis With Contrast Exam date and time: 12/22/2022 4:35 PM Age: 67 years old Clinical indication: Other: Unintentional weight loss; Additional info: Unintentional weight loss, unintentional weight loss, altered bowel movements, assess TECHNIQUE: Imaging protocol: Computed tomography of the abdomen and pelvis with contrast. Radiation optimization: All CT scans at this facility use at least one of these dose optimization techniques: automated exposure control; mA and/or kV adjustment per patient size (includes targeted exams where dose is matched to clinical indication); or iterative reconstruction. Contrast material: OMNI 350; Contrast volume: 85 ml; Contrast route: INTRAVENOUS (IV); Other protocol: This patient has received 4 known CTs and 0 known cardiac nuclear medicine studies in the 12 months prior to the current study. COMPARISON: CT abdomen pelvis w con* [id number] 12/06/2021 2:14 PM RADIATION DOSE METRICS: Total DLP (mGy-cm): 320.71 FINDINGS: Lungs: Left lower lobe tree-in-bud type particular nodular densities may reflect an atypical mycobacterial infection. Liver: Normal. No mass. Gallbladder and bile ducts: Normal. No calcified stones. No ductal dilation. Pancreas: Normal. No ductal dilation. Spleen: Normal. No splenomegaly. Adrenal glands: Normal. No mass. Kidneys and ureters: Normal. No hydronephrosis. Stomach and bowel: Prominent fluid in the stomach and small bowel may reflect a gastroenteritis.Constipation. Appendix: No evidence of appendicitis. Intraperitoneal space: Unremarkable. No free air. No significant fluid collection. Vasculature: Unremarkable. No abdominal aortic aneurysm. Lymph nodes: Unremarkable. No enlarged lymph nodes. Urinary bladder: Unremarkable as visualized. Reproductive: Unremarkable as visualized. Bones/joints: Unremarkable. No acute fracture. Soft tissues: Unremarkable. CT/CT abdomen pelvis w con* [id number] IMPRESSION: 1. Prominent fluid in the stomach and small bowel may reflect a gastroenteritis. 2. Left lower lobe tree-in-bud type particular nodular densities may reflect an atypical mycobacterial infection. 3. Constipation.
--- NOTE | 2022-12-22 15:52 | CTR_ITS ---
PROCEDURE INFORMATION: Exam: CT Neck With Contrast Exam date and time: 12/22/2022 4:40 PM Age: 67 years old Clinical indication: Other: Evaluate for neck mass, dysphagia, recurrent vasovagal episodes, ; additional info: Evaluate for neck mass, dysphagia, recurrent vasovagal episodes, evaluate for neck TECHNIQUE: Imaging protocol: Computed tomography of the neck with contrast. Radiation optimization: All CT scans at this facility use at least one of these dose optimization techniques: automated exposure control; mA and/or kV adjustment per patient size (includes targeted exams where dose is matched to clinical indication); or iterative reconstruction. Contrast material: OMNI 350; Contrast volume: 50 ml; Contrast route: INTRAVENOUS (IV); Other protocol: This patient has received 4 known CTs and 0 known cardiac nuclear medicine studies in the 12 months prior to the current study. COMPARISON: CT neck w con* [id number] 10/05/2020 8:33 AM RADIATION DOSE METRICS: Total DLP (mGy-cm): 199.52 FINDINGS: Brain: Unchanged chronic appearing lacunar infarcts left basal ganglia and right cerebellum. Paranasal sinuses: There is interval increase in patchy [id number] mucosal thickening in the sinuses. Findings of chronic right maxillary sinusitis is again identified however there is a small amount of gas within the collection, and more fluid density with greater enhancement compared to the prior exam. Bony sclerosis of the right maxillary sinus is unchanged without any new periosteal reaction or new cortical destruction. There is new induration of the fat planes adjacent to the right maxillary sinus especially the lateral wall where there is a trace amount of fluid without abscess.There is mild skin thickening and subcutaneous edema concerning for cellulitis of the right cheek especially overlying the right maxillary sinus and continuing inferiorly overlying the right mandible, parotid gland and right submandibular glands. Dental: Several tooth remnants are noted in the mandible all of which demonstrate dental caries and periapical lucency of chronic osteomyelitis without subperiosteal abscess or adjacent infection. Pharynx: Unremarkable. No significant tonsillar enlargement. Larynx: Unremarkable. Epiglottis is normal. Prevertebral and retropharyngeal spaces: Unremarkable. Salivary glands: There is mild asymmetric decreased density of the right parotid and right submandibular glands with very mild haziness of the adjacent fat concerning for mild edema/inflammatory changes. Induration of the fat is greater overlying the right maxillary sinus. Thyroid: Normal. No enlarged or calcified nodules. Lymph nodes: Multiple larger/more prominent subcentimeter lymph nodes are noted in the right submandibular fossa. No pathologic adenopathy. Trachea: Visualized trachea is unremarkable. Lungs: Unremarkable as visualized. Bones/joints: See Paranasal sinuses finding. Soft tissues: There is indeterminate/nonspecific soft tissue edema overlying the right frontal bone superior to the right orbit that is suspected to reflect additional extension of cellulitis.. Other findings: No fluid collection or abscess. CT/CT neck w con* [id number] IMPRESSION: 1. There is skin thickening and subcutaneous edema concerning for cellulitis of the right cheek especially overlying the right maxillary sinus and continuing inferiorly overlying the right mandible, parotid gland and right submandibular glands. No abscess. No pathologic adenopathy. Multiple larger although normal-size lymph nodes are noted in the right neck and especially the right submandibular region. 2. Previously visualized chronic right maxillary sinusitis continues however there is no gas within the contents, more fluid density and peripheral enhancement concerning for active infection with new thickening of the external periosteum, trace fluid and induration of the fat planes adjacent to the sinus. 3. Right parotid and right submandibular glands are slightly more prominent with mild enlargement and decreased density concerning for edema or very mild secondary infection. Note is made that the most significant soft tissue edema/induration of the fat are associated with the right maxillary sinus. 4. Several tooth remnants are noted in the mandible all of which demonstrate dental caries and periapical lucency of chronic osteomyelitis without subperiosteal abscess or adjacent infection.
[2022-12-22] MEDS: iohexol 350 mg/mL 500 mL Btl (per mL) IV ×2 (16:41→16:47)
[2022-12-22] MEDS: atorvastatin 40 mg Tablet 20 MG PO (20:30)
[2022-12-23] VITALS (14 sets, daily range): BP systolic 121–159; BP diastolic 54–86; PULSE 62–87; RESP 16–19; TEMP 36.4–37.2; O2SAT 92–100
[2022-12-23] MEDS: sodium chloride 0.9% 1,000 ML 75 ML IV (01:09)
[2022-12-23] MEDS: heparin 5,000 unit/mL INJ 1 mL 5000 UNIT SUBCUT ×2 (04:59→17:12)
--- NOTE | 2022-12-23 06:10 | PC.NURSE ---
TRANSFER NOTE Pt received to room from CSU via wheelchair. Is alert and oriented. nuclear monitoring technician applied and is showing SR. IV fluids infusing at 75ml/hr rate. Says no pain except just sore all over . Abrasions noted to R eyebrow, and R cheek. Optifoam dressing to abrasion on R hand. Bed alarm on for safety and instructed not to be up without assist.
--- NOTE | 2022-12-23 08:00 | FL_ITS ---
WS: [id number] FL barium swallow modifd [id number] REASON FOR EXAM: Oropharyngeal dysphagia FLUOROSCOPY TIME: 3min [id number] # OF SPOT FILMS: 0 FINDINGS: Examination was supervised by the speech therapy department. The cervical esophagus was evaluated in the sitting lateral view with swallowing of multiple consiste ncies of barium. The function of the esophagus was recorded with cine fluoroscopy for detailed evaluation of the [facility] therapy department. A very small amount of aspiration was identified during the examination. Detailed analysis and report will be rendered by the speech therapy department. FL/FL barium swallow modifd [id number] IMPRESSION: Modified barium swallow as above.
[2022-12-23] MEDS: clopidogrel 75 mg Tablet PO (08:50)
[2022-12-23] MEDS: pantoprazole DR 40 mg Tablet PO (08:50)
[2022-12-23] MEDS: citalopram 20 mg Tablet 10 MG PO (08:50)
[2022-12-23] MEDS: levothyroxine 50 mcg Tablet PO (08:50)
--- NOTE | 2022-12-23 12:23 | PM.PN ---
Subjective Subjective: Modified barium swallow completed today Patient able to drink in front of me Has dental caries I did inform him about the CT scan of neck, consulted Dr. Gomez who will evaluate him this evening Patient qualifies for dementia as per [place] mental exam score, score 12/30 which was done by speech therapist at the bedside Vitals/I&O/Wt Last Vital Signs Temp 97.5 F L 12/23/22 11:40 Pulse 67 12/23/22 11:40 Resp 16 12/23/22 11:40 BP 159/74 12/23/22 11:40 Pulse Ox 98 12/23/22 11:40 O2 Del Method 12/23/22 11:40 12/22/22 12/23/22 12/23/22 22:59 06:59 14:59 Intake Total 2440 / 3160 507.5 / 3667.5 620 / 620 Output Total 500 / 950 300 / 1250 Balance 1940 / 2210 207.5 / 2417.5 620 / 620 Weight last 48 hrs Weight 48.081 kg Weight 68.039 kg Physical Exam Narrative: Patient is awake and alert Able to take a sip of water Awake and alert Muscle mass loss Pleasant cooperative S1, S2 Currently on room air Abdomen soft Nonfocal neuro exam No signs of myasthenia gravis No signs of ptosis appropriate mood and affect Data 12/22/22 04:47 12/22/22 04:47 A&P Assessment and plan (1) Vasovagal syncope: (2) Recent unexplained weight loss: (3) HTN (hypertension): (4) Dysphagia: (5) CAD (coronary artery disease): (6) Atherosclerosis of coronary artery: (7) COPD (chronic obstructive pulmonary disease): (8) BPH loc w urin obs/LUTS: (9) Family history of prostate cancer: Plan Recurrent syncopal events, will need Holter monitor at the time of discharge Left-sided carotid stenosis which will need outpatient management No significant arrhythmia Echo unremarkable Chronic osteomyelitis without active abscess we will add clindamycin for now until he is evaluated by Dr. Gomez I would avoid Augmentin because of the size of the medication and current dysphagia and syncopal event Dysphagia could be related to edentulous state and osteomyelitis of maxillary bone CT neck reviewed and I have consulted Dr. Gomez who will evaluate him today Signs of myasthenia gravis or stroke COPD without acute exacerbation Coronary disease without acute exacerbation Hypothyroidism continue thyroxine 50 mcg GERD: Continue Protonix Full code On modified diet Appreciate speech therapy recommendations Attestations Medical Necessity Statement*: Continue hospitalization Coding [place] [id number] Patient Type Established Medical Decision Making Low Complexity Diagnoses Vasovagal syncope R55 Recent unexplained weight loss R63.4 HTN (hypertension) I10 Dysphagia R13.10 CAD (coronary artery disease) I25.10 Atherosclerosis of coronary artery I25.10 COPD (chronic obstructive pulmonary disease) J44.9 BPH loc w urin obs/LUTS N40.1 Family history of prostate cancer Z80.42 Time Spent (min) 30
[2022-12-23] MEDS: clindamycin 150 mg Capsule 300 MG PO ×2 (15:50→21:11)
--- NOTE | 2022-12-23 18:09 | P.CONIM_ITS ---
Providers/Reason For Consult Consulting Physician/Specialty*: Dr. Venu Yeung MD Otolaryngology, Head & Neck Surgery Reason for Consult*: Right facial swelling Dental abscess Requesting Physician: Dr. Stanley Pierre MD Attending Physician: Stanley Pierre MD Primary Care Provider: Unruly Hernandez NP History of Present Illness History of Present Illness Dariusz Leigh is a 67 year old male with right cheek swelling, right ma xillary sinusitis, and dental caries. I was consulted to advise on treatment of the above symptoms/findings. The patient reports that he recently fell in a parking loss and struck his right cheek on the ground. He denies any other injury. His main c/o tonight is dysphagia. Review of Systems General: Reports: 10 or more systems reviewed and unremarkable except in HPI and below Medications/Allergies Home Medications Medication Instructions Recorded Confirmed Last Taken Type citalopram 10 mg tablet 10 mg PO DAILY 02/17/20 12/21/22 12/21/22 History fluticasone 250 mcg-salmeterol 50 1 inh inhalation BID 02/17/20 12/21/22 12/21/22 History mcg/dose blistr powdr for inhalation (Advair Diskus) fluticasone propionate 50 1 spray intranasal DAILY 02/17/20 12/21/22 12/21/22 History mcg/actuation nasal spray,suspension levothyroxine 50 mcg tablet 50 mcg PO DAILY 02/17/20 12/21/22 12/21/22 History omeprazole 20 mg capsule,delayed 20 mg PO BID 02/17/20 12/21/22 12/21/22 History release albuterol sulfate 90 mcg/actuation 2 puff inhalation Q6H PRN 06/04/21 12/21/22 Unknown History aerosol inhaler (ProAir HFA) Shortness Of Breath nitroglycerin 0.4 mg sublingual 0.4 mg sublingual Q5M PRN Chest 06/04/21 12/21/22 Unknown History tablet Pain psyllium husk (aspartame) 3.4 3.4 ea PO DAILY PRN Constipation 01/17/22 12/21/22 Unknown History gram/5.8 gram oral powder (Metamucil [facility] Fiber) clopidogrel 75 mg tablet (Plavix) 75 mg PO DAILY #90 tabs 07/08/22 12/21/22 12/21/22 Rx ipratropium 20 mcg-albuterol 100 1 puff inhalation Q6H 09/13/22 12/21/22 12/21/22 History mcg/actuation mist for inhalation (Combivent Respimat) isosorbide mononitrate 30 mg 15 mg PO BID #90 tabs 10/18/22 12/21/22 12/21/22 Rx tablet,extended release 24 hr simvastatin 40 mg tablet 40 mg PO DAILY #90 tabs 10/18/22 12/21/22 12/20/22 Rx Allergies Allergy/AdvReac Type Severity Reaction Status Date / Time No Known Allergies Allergy Verified 12/21/22 13:10 Current Medications Generic Name Dose Route Start Last Admin Trade Name Freq PRN Reason Stop Dose Admin Acetaminophen 650 mg 12/21/22 15:50 12/22/22 12:52 Acetaminophen 325 Mg Tablet PO 650 mg Q6H PRN Administration Mild/Mod Pain Or Temp >/= 101 Atorvastatin Calcium 20 mg 12/21/22 20:45 12/22/22 20:30 Atorvastatin 40 Mg Tablet PO 20 mg BEDTIME ANUP Administration Citalopram Hydrobromide 10 mg 12/22/22 09:00 12/23/22 08:50 Citalopram 20 Mg Tablet PO 10 mg DAILY ANUP Administration Clindamycin HCl 300 mg 12/23/22 15:00 12/23/22 15:50 Clindamycin 150 Mg Capsule PO 300 mg TID ANUP Administration Protocol Clopidogrel Bisulfate 75 mg 12/22/22 09:00 12/23/22 08:50 Clopidogrel 75 Mg Tablet PO 75 mg DAILY ANUP Administration Heparin Sodium (Porcine) 5,000 unit 12/21/22 17:00 12/23/22 17:12 Heparin 5,000 Unit/Ml Inj 1 Ml SUBCUT 5,000 unit Q12H ANUP Administration Sodium Chloride 1,000 mls @ 75 mls/hr 12/21/22 16:00 12/23/22 14:52 Sodium Chloride 0.9% IV Infused .[id number] ANUP Infusion Levothyroxine Sodium 50 mcg 12/22/22 09:00 12/23/22 08:50 Levothyroxine 50 Mcg Tablet PO 50 mcg DAILY ANUP Administration Pantoprazole Sodium 40 mg 12/22/22 09:00 12/23/22 08:[address] 40 Mg Tablet PO 40 mg DAILY ANUP Administration Polyethylene Glycol 17 gm 12/22/22 05:41 12/22/22 08:13 Polyethylene Glycol 3350 Pkt 17 Gm PO 17 gm DAILY PRN Administration CONSTIPATION PFSH Acute PFSH: Medical History Atherosclerosis of coronary artery CAD (coronary artery disease) COPD (chronic obstructive pulmonary disease) CVA (cerebral vascular accident) Depression Elevated PSA GERD (gastroesophageal reflux disease) HTN (hypertension) Hypothyroid Osteoarthritis PAD (peripheral artery disease) Surgical History H/O carpal tunnel repair Hx of colonoscopy (03/06/21) Diverticulosis-10 years Family History Father , AT AGE 71 Myocardial infarction (lateral wall) Hyperlipidemia Brain tumor Mother , AT AGE 58 Hyperlipidemia Headache, migraine History of heart attack Brother Cancer COLON Social History Smoking and tobacco status: former smoker Alcohol intake: never Marital status: Life Partner Current occupational status: disabled History of recent travel: No Vitals/I&O/Wt Last Vital Signs Temp 97.8 F 12/23/22 16:00 Pulse 65 12/23/22 16:00 Resp 16 12/23/22 16:00 BP 131/72 12/23/22 16:00 Pulse Ox 100 12/23/22 16:00 O2 Del Method 12/23/22 16:00 12/23/22 12/23/22 12/23/22 06:59 14:59 22:59 Intake Total 507.5 / 3667.5 2240 / 2240 Output Total 300 / 1250 Balance 207.5 / 2417.5 2240 / 2240 Weight last 48 hrs Weight 48.081 kg Physical Exam Const: COMMON NORMALS: no acute distress and patient oriented x3 HENMT: COMMON NORMALS: normocephalic, atraumatic and Normal external nose present HEAD & SCALP: normocephalic and atraumatic FACE & SINUS: other (There is swelling, abrasion, and ecchymosis of the right cheek c/w trauma) NOSE: Normal external nose present MOUTH: Normal oral and palatal mucosa present THROAT: posterior oropharynx normal Eye: COMMON NORMALS: EOMs intact bilaterally Neck/C-Spine: COMMON NORMALS: full ROM, no lymphadenopathy and supple Lymph: LYMPHATIC: no lymphadenopathy noted Neuro: COMMON NORMALS: patient oriented x3 Data 12/22/22 04:47 12/22/22 04:[address]: I personally reviewed and interpreted this imaging study as follows: My impression: Neck CT: See radiologists report. A&P Assessment and plan (1) Dysphagia: Impression: Chronic, with worsening symptoms Plan: I recommend f/u evaluation by Gastroenterology (2) Facial swelling: Impression: Post traumatic, most likely unrelated to the patient's dental caries Plan: Observation of facial swelling I recommend Dental evaluation and treatment after discharge (3) Sinusitis, maxillary, chronic: Impression: Chronic Maxillary and ethmoid sinusitis Plan: - I recommend oral antibiotics after discharge - I will have the patient f/u with me after discharge for management - my office will arrange Consult Attestations Medical Necessity Statement: I was consulted to advise on care of the patient's facial swelling, dental caries, and dysphagia. Procedures Procedure Narrative Fiberoptic Nasal Endoscopy: Right nasal septal deviation noted; bilateral inferior turbinate hypertrophy; purulent discharge from the right middle meatus; o/w unremarkable exam. Coding Level of Care Code Acute Code for Chg Fwd Diagnoses Dysphagia R13.10 Facial swelling R22.0 Sinusitis, maxillary, chronic J32.0
--- NOTE | 2022-12-23 19:36 | PC.NURSE ---
Pt is currently resting in bed with the bed alarm set. Pt has stable vitals and is alert and oriented. Pt does forget to get help before getting out of bed so alarm has been diligently set. Room is clean and clutter free. Table and call light are within reach. All concerns/questions are addressed at this time. Report was given bedside to oncoming nurse.
[2022-12-23 21:06] LABS: Glucose Point of Care 182 mg/dL (70-110)
[2022-12-23] MEDS: atorvastatin 40 mg Tablet 20 MG PO (21:10)
[2022-12-24] VITALS (9 sets, daily range): BP systolic 104–135; BP diastolic 65–89; PULSE 68–79; RESP 16–18; TEMP 36.3–36.7; O2SAT 95–99
[2022-12-24] MEDS: heparin 5,000 unit/mL INJ 1 mL 5000 UNIT SUBCUT (04:57)
[2022-12-24] MEDS: sodium chloride 0.9% 1,000 ML 75 ML IV (05:43)
[2022-12-24 06:30] LABS: Glucose Point of Care 218 mg/dL (70-110)
--- NOTE | 2022-12-24 07:38 | PC.SOCIAL ---
IMM Update pg 2 of IMM not updated. Patient is currently in observation status.
[2022-12-24] MEDS: ipratropium-albuterol 3 mL Neb INHALATION (08:32)
[2022-12-24] MEDS: pantoprazole DR 40 mg Tablet PO (08:58)
[2022-12-24] MEDS: clindamycin 150 mg Capsule 300 MG PO ×2 (08:58→14:36)
[2022-12-24] MEDS: levothyroxine 50 mcg Tablet PO (08:59)
[2022-12-24] MEDS: citalopram 20 mg Tablet 10 MG PO (08:59)
[2022-12-24] MEDS: clopidogrel 75 mg Tablet PO (08:59)
--- NOTE | 2022-12-24 11:05 | PM.DCS ---
Discharge Providers Date of Admission: 12/21/22 17:04 Date of Discharge: December 24, 2022 Attending Provider at Admission: Krystyna Holbrook MD Attending Provider at Discharge: Stanley Pierre MD Primary Care Provider: Unruly Hernandez NP Diagnoses at Discharge Discharge Diagnosis (1) Vasovagal syncope: Status: Acute (2) Recent unexplained weight loss: Status: Acute (3) HTN (hypertension): Status: Acute (4) Dysphagia: Status: Acute (5) CAD (coronary artery disease): Status: Acute (6) Atherosclerosis of coronary artery: Status: Acute (7) COPD (chronic obstructive pulmonary disease): Status: Acute (8) BPH loc w urin obs/LUTS: Status: Acute (9) Family history of prostate cancer: Status: Acute Reason for Visit Reason for Visit: +LOC S/P FALL Hospital Course Hospital Course 67-year male who was admitted for weight loss, dysphagia, syncopal events. 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 Gomez evaluated him and recommended outpatient management, he will need dentist appointment for tooth extraction, because of dysphagia has been unknown, no signs of stroke, no signs of myasthenia gravis, modified barium swallow showed mild to moderate pharyngeal residual patient was able to clear by alternating liquids with solid and/or double swallow penetration with trace aspiration noted with thin liquids no penetration with use of a chin tuck. Swallow study is pretty much similar to the last study which was 1 year ago. Patient will get Holter monitor at the time of discharge because of her syncopal events which I think is because of vasovagal response to aspiration and choking. Patient scored 12/30 on Niels cognitive assessment and 12/30 on [facility] mental status exam which would qualify for dementia. Patient will need dentist appointment outpatient, Dr. Gomez will see him outpatient as well, I have requested Dr. Shepherd for an EGD before his discharge to complete the work-up for his dysphagia: EGD showed gastritis, omeprazole 8 weeks prescribed Physical Exam Narrative: Patient is able to ambulate independently Pleasant and cooperative Currently on room air Hemodynamically stable Abdomen soft S1, S2 GCS 15 Discharge Data Studies Completed and Pending Completed Studies During Hospitalization Category Date Time Status CT abdomen pelvis w con* [id number] Routine Cat Scan 12/22/22 15:[address] cervical spin wo con* [id number] Stat Cat Scan 12/21/22 13:[address] facial bones wo con* [id number] Stat Cat Scan 12/21/22 13:[address] head wo con* [id number] Stat Cat Scan 12/21/22 13:[address] neck w con* [id number] Routine Cat Scan 12/22/22 15:52 Completed FL barium swallow modifd [id number] Routine Exams 12/23/22 08:00 Completed XR chest 1V portable [id number] Stat Exams 12/21/22 13:15 Completed CV carotid duplex BI* [id number] Routine Ultrasound 12/21/22 15:50 Completed CV. echo complete* [id number] Routine Ultrasound 12/22/22 06:00 Completed Radiology Impressions Chest X-Ray 12/21/22 13:15 IMPRESSION: 1. Slight increased interstitial markings left lung base with previous exam which could indicate interval mild scarring or minimal interstitial infiltrate. 2. Slight blunting right costophrenic angle in relation to prior exam could also reflect chronic change of interval mild pleural thickening versus acute change of trace effusion. 3. Mild benign healed granulomatous disease change. Head CT 12/21/22 13:15 IMPRESSION: 1. Chronic changes with prior exam related to [id number] atrophic change and diffuse periventricular leukomalacia or chronic small-vessel disease change, as well as chronic lacunar infarcts of the basal ganglia. 2. No acute intracranial abnormality. Cervical Spine CT 12/21/22 13:16 IMPRESSION: Cervical spondylosis along with loss of the normal cervical curvature, as noted above. No fracture identified. Face CT 12/21/22 13:20 IMPRESSION: 1. Soft tissue swelling right facial region. 2. No fracture identified. 3. Mucosal sinus disease as noted above. Carotid Doppler Study 12/21/22 15:50 IMPRESSION: 1. Visually there is [id number] atherosclerotic plaque in the right carotid bulb, right internal carotid artery, left common carotid artery, and left internal carotid artery. 2. Peak systolic velocity of the mid left internal carotid artery is 199 cm/s corresponding to between 50 and 69% stenosis. REFERENCES: SRU CRITERIA. The degree of internal carotid artery stenosis is based on criteria defined by the Society of Radiologists in Ultrasound (SRU). Normal is no stenosis. Mild is less than 50% stenosis. Moderate is 50-69% stenosis. Severe is greater than 69% stenosis to near occlusion. Near occlusion is a markedly narrowed lumen. Total occlusion is no detectable patent lumen. Abdomen/Pelvis CT 12/22/22 15:52 IMPRESSION: 1. Prominent fluid in the stomach and small bowel may reflect a gastroenteritis. 2. Left lower lobe tree-in-bud type particular nodular densities may reflect an atypical mycobacterial infection. 3. Constipation. Neck CT 12/22/22 15:52 IMPRESSION: 1. There is skin thickening and subcutaneous edema concerning for cellulitis of the right cheek especially overlying the right maxillary sinus and continuing inferiorly overlying the right mandible, parotid gland and right submandibular glands. No abscess. No pathologic adenopathy. Multiple larger although normal-size lymph nodes are noted in the right neck and especially the right submandibular region. 2. Previously visualized chronic right maxillary sinusitis continues however there is no gas within the contents, more fluid density and peripheral enhancement concerning for active infection with new thickening of the external periosteum, trace fluid and induration of the fat planes adjacent to the sinus. 3. Right parotid and right submandibular glands are slightly more prominent with mild enlargement and decreased density concerning for edema or very mild secondary infection. Note is made that the most significant soft tissue edema/induration of the fat are associated with the right maxillary sinus. 4. Several tooth remnants are noted in the mandible all of which demonstrate dental caries and periapical lucency of chronic osteomyelitis without subperiosteal abscess or adjacent infection. Modified Barium Swallow 12/23/22 08:00 IMPRESSION: Modified barium swallow as above. Laboratory Results WBC 5.9 10^3/uL (4.0-10.0) 12/22/22 04:47 RBC 4.08 10^6/uL (4.1-5.3) L 12/22/22 04:47 Hgb 12.6 g/dL (11.7-16.6) 12/22/22 04:47 Hct 38.6 % (42.0-52.0) L 12/22/22 04:47 MCV 94.6 fl (80-94) H 12/22/22 04:47 MCH 30.9 pg (28.0-34.0) 12/22/22 04:47 MCHC 32.6 g/dL (30.0-36.0) 12/22/22 04:47 RDW 13.3 % (12.1-15.1) 12/22/22 04:47 Plt Count 183 10^3/cmm (130-400) 12/22/22 04:47 MPV 10.3 fL (7.4-10.4) 12/22/22 04:47 Neut % (Auto) 58.7 % 12/22/22 04:47 Lymph % (Auto) 33.0 % 12/22/22 04:47 [place] % (Auto) 6.1 % 12/22/22 04:47 Eos % (Auto) 1.0 % 12/22/22 04:47 Baso % (Auto) 0.9 % 12/22/22 04:47 Neut # (Auto) 3.44 10^3/uL (1.8-7.7) 12/22/22 04:47 Lymph # (Auto) 1.9 10^3/uL (0.8-4.8) 12/22/22 04:47 [place] # (Auto) 0.4 10^3/uL (0.2-0.9) 12/22/22 04:47 Eos # (Auto) 0.1 10^3/uL (0.0-0.8) 12/22/22 04:47 Baso # (Auto) 0.1 10^3/uL (0.0-0.1) 12/22/22 04:47 Nucleated RBC % (auto) 0 % 12/22/22 04:47 Nucleated RBCs # 0.0 /100WBC 12/22/22 04:47 Sodium 137 mmol/L (136-145) 12/22/22 04:47 Potassium 3.7 mmol/L (3.5-5.1) 12/22/22 04:47 Chloride 104 mmol/L (98-107) 12/22/22 04:47 Carbon Dioxide 26 mmol/L (22-29) 12/22/22 04:47 Anion Gap 10.7 (5-19) 12/22/22 04:47 BUN 12 mg/dL (8-23) 12/22/22 04:47 Creatinine 0.7 mg/dL (0.7-1.2) 12/22/22 04:47 GFR Calculation 112.5 mL/min (90-130) 12/22/22 04:47 Glucose 75 mg/dL (65-115) 12/22/22 04:47 POC Glucose 218 mg/dL (70-110) H 12/24/22 06:26 Calculated Osmolality 282 mOsm/kg (285-295) L 12/22/22 04:47 Calcium 8.2 mg/dL (8.5-10.5) L 12/22/22 04:47 Phosphorus 2.7 mg/dL (2.5-4.5) 12/22/22 04:47 Magnesium 1.8 mg/dL (1.7-2.3) 12/22/22 04:47 Total Bilirubin 0.4 mg/dL (0.15-1.2) 12/21/22 13:11 AST 27 U/L (0-40) 12/21/22 13:11 ALT 16 U/L (0-41) 12/21/22 13:11 Alkaline Phosphatase 82 U/L (40-130) 12/21/22 13:11 Total Protein 6.8 g/dL (6.6-8.7) 12/21/22 13:11 Albumin 4.2 g/dL (3.5-5.2) 12/21/22 13:11 Globulin 2.6 g/dL (1.3-4.6) 12/21/22 13:11 Vitamin B12 651 pg/mL (232-1245) 12/21/22 13:11 Procalcitonin 0.02 ng/mL (0-0.5) 12/21/22 13:11 TSH 2.15 uIU/mL (0.27-4.20) 12/21/22 13:11 Free T4 1.17 ng/dL (0.82-1.77) 12/21/22 13:11 Urine Color Yellow (Yellow) 12/21/22 19:15 Urine Appearance Clear (CLEAR) 12/21/22 19:15 Urine pH 7 (5-7) 12/21/22 19:15 Ur Specific [place] 1.010 (1.005-1.030) 12/21/22 19:15 Urine Protein Neg (Negative) 12/21/22 19:15 Urine Glucose (UA) Norm (Normal) 12/21/22 19:15 Urine Ketones Negative (Negative) 12/21/22 19:15 Urine Blood Neg (Negative) 12/21/22 19:15 Urine Nitrate Negative (Negative) 12/21/22 19:15 Urine Bilirubin Neg (Negative) 12/21/22 19:15 Urine Urobilinogen Neg mg/dL (Negative) 12/21/22 19:15 Ur Leukocyte Esterase Negative (Negative) 12/21/22 19:15 Vitals Last Vital Signs Temp 98.1 F 12/24/22 08:00 Pulse 68 12/24/22 08:00 Resp 16 12/24/22 08:00 BP 128/70 12/24/22 08:00 Pulse Ox 95 12/24/22 08:00 O2 Del Method 12/24/22 08:00 Discharge Plan Discharge Patient Disposition: Home Condition: Stable Prescriptions: New amoxicillin-pot clavulanate 500-125 mg tablet 1 tab PO BID Qty: 20 0RF omeprazole 20 mg tablet,delayed release (DR/EC) 20 mg PO BID 56 Days Qty: 112 0RF Continued fluticasone propion-salmeterol [Advair Diskus] 250-50 mcg/dose blister with device 1 inh INHALATION BID fluticasone propionate 50 mcg/actuation spray,suspension 1 spray INTRANASAL DAILY omeprazole 20 mg capsule,delayed release(DR/EC) 20 mg PO BID levothyroxine 50 mcg tablet 50 mcg PO DAILY nitroglycerin 0.4 mg tablet, sublingual 0.4 mg sublingual Q5M PRN (Reason: Chest Pain) Rx Instructions: do not exceed 3 doses per episode albuterol sulfate [ProAir HFA] 90 mcg/actuation HFA aerosol inhaler 2 puff inhalation Q6H PRN (Reason: Shortness Of Breath) Metamucil [facility] Fiber 3.4 gram/5.8 gram powder 3.4 ea PO DAILY PRN (Reason: Constipation) Combivent Respimat 20-100 mcg/actuation mist 1 puff inhalation Q6H Plavix 75 mg tablet 75 mg PO DAILY Qty: 90 2RF isosorbide mononitrate 30 mg tablet extended release 24 hr 15 mg PO BID Qty: 90 3RF Discontinued citalopram 10 mg tablet 10 mg PO DAILY simvastatin 40 mg tablet 40 mg PO DAILY Qty: 90 3RF Discharge Orders: Discharge Order (Routine); Ordered 12/24/22 Ordered By: Stanley Pierre Other Ambulatory Orders: MCT/Event Monitor 21 Days (Routine) Timeframe: 3 Weeks Facility: [facility] - Location: Radiology Ordered By: Stanley Pierre Physical Therapy Eval and Treat Outpatient (Order) Timeframe: 2 Days Facility: [facility] - Location: Physical Therapy [place] Ordered By: Stanley Pierre Referrals: Unruly Hernandez NP [Primary Care Provider] - 12/27/22 4:00 pm Venu Yeung MD [Physician] - 2 weeks Patient Instructions: Omeprazole (By mouth), Amoxicillin/Clavulanate Potassium (By mouth), GI Discharge Instructions, Opioid Safety Activity Restrictions/Additional Instructions: [facility] FAXED ORDER FOR THERAPY TO [facility] Discharge Attestations Time Spent in Discharge Care*: less than 30 min Quality Metrics Clinical Quality Measures [ No reported AMI, CVA or VTE this stay] Coding Level of Care Code Acute Code for Chg Fwd Diagnoses Vasovagal syncope R55 Recent unexplained weight loss R63.4 HTN (hypertension) I10 Dysphagia R13.10 CAD (coronary artery disease) I25.10 Atherosclerosis of coronary artery I25.10 COPD (chronic obstructive pulmonary disease) J44.9 BPH loc w urin obs/LUTS N40.1 Family history of prostate cancer Z80.42
[2022-12-24] MEDS: sodium chloride 0.9% 1,000 ML 30 ML IV (11:50)
--- NOTE | 2022-12-24 12:39 | P.CONIM_ITS ---
Providers/Reason For Consult Consulting Physician/Specialty*: Dr. Rafa Shehperd, DO/General surgery Reason for Consult*: Dysphagia Attending Physician: Stanley Pierre MD Primary Care Provider: Unruly Hernandez NP History of Present Illness History of Present Illness Dariusz Leigh is a 67 year old male who is currently in the hospital after a syncopal fall. While in the hospital he is gotten a barium swallow which showed minimal penetration with thin liquids. ENT was consulted and recommended GI consult for EGD. Patient reports that he has no difficulty swallowing. Denies any abdominal pain, nausea, emesis, diarrhea, constipation. Review of Systems General: Reports: 10 or more systems reviewed and unremarkable except in HPI and below Medications/Allergies Home Medications Medication Instructions Recorded Confirmed Last Taken Type fluticasone 250 mcg-salmeterol 50 1 inh inhalation BID 02/17/20 12/21/22 12/21/22 History mcg/dose blistr powdr for inhalation (Advair Diskus) fluticasone propionate 50 1 spray intranasal DAILY 02/17/20 12/21/22 12/21/22 History mcg/actuation nasal spray,suspension levothyroxine 50 mcg tablet 50 mcg PO DAILY 02/17/20 12/21/22 12/21/22 History omeprazole 20 mg capsule,delayed 20 mg PO BID 02/17/20 12/21/22 12/21/22 History release albuterol sulfate 90 mcg/actuation 2 puff inhalation Q6H PRN 06/04/21 12/21/22 Unknown History aerosol inhaler (ProAir HFA) Shortness Of Breath nitroglycerin 0.4 mg sublingual 0.4 mg sublingual Q5M PRN Chest 06/04/21 12/21/22 Unknown History tablet Pain psyllium husk (aspartame) 3.4 3.4 ea PO DAILY PRN Constipation 01/17/22 12/21/22 Unknown History gram/5.8 gram oral powder (Metamucil [facility] Fiber) clopidogrel 75 mg tablet (Plavix) 75 mg PO DAILY #90 tabs 07/08/22 12/21/22 12/21/22 Rx ipratropium 20 mcg-albuterol 100 1 puff inhalation Q6H 09/13/22 12/21/22 12/21/22 History mcg/actuation mist for inhalation (Combivent Respimat) isosorbide mononitrate 30 mg 15 mg PO BID #90 tabs 10/18/22 12/21/22 12/21/22 Rx tablet,extended release 24 hr amoxicillin 500 mg-potassium 1 tab PO BID #20 tabs 12/24/22 Unknown Rx clavulanate 125 mg tablet Allergies Allergy/AdvReac Type Severity Reaction Status Date / Time No Known Allergies Allergy Verified 12/21/22 13:10 Current Medications Generic Name Dose Route Start Last Admin Trade Name Freq PRN Reason Stop Dose Admin Acetaminophen 650 mg 12/21/22 15:50 12/22/22 12:52 Acetaminophen 325 Mg Tablet PO 650 mg Q6H PRN Administration Mild/Mod Pain Or Temp >/= 101 Albuterol/Ipratropium 3 ml 12/21/22 15:50 12/24/22 08:32 Ipratropium-Albuterol 3 Ml Neb INHALATION 3 ml Q6H PRN Administration SHORTNESS OF BREATH Atorvastatin Calcium 20 mg 12/21/22 20:45 12/23/22 21:10 Atorvastatin 40 Mg Tablet PO 20 mg BEDTIME ANUP Administration Citalopram Hydrobromide 10 mg 12/22/22 09:00 12/24/22 08:59 Citalopram 20 Mg Tablet PO 10 mg DAILY ANUP Administration Clindamycin HCl 300 mg 12/23/22 15:00 12/24/22 08:58 Clindamycin 150 Mg Capsule PO 300 mg TID ANUP Administration Protocol Clopidogrel Bisulfate 75 mg 12/22/22 09:00 12/24/22 08:59 Clopidogrel 75 Mg Tablet PO 75 mg DAILY ANUP Administration Heparin Sodium (Porcine) 5,000 unit 12/21/22 17:00 12/24/22 04:57 Heparin 5,000 Unit/Ml Inj 1 Ml SUBCUT 5,000 unit Q12H ANUP Administration Sodium Chloride 1,000 mls @ 75 mls/hr 12/21/22 16:00 12/24/22 05:43 Sodium Chloride 0.9% IV 75 mls/hr .[id number] ANUP Administration Sodium Chloride 1,000 mls @ 30 mls/hr 12/24/22 11:30 12/24/22 11:50 Sodium Chloride 0.9% IV 12/25/22 11:29 30 mls/hr .Q24H ANUP Administration Levothyroxine Sodium 50 mcg 12/22/22 09:00 12/24/22 08:59 Levothyroxine 50 Mcg Tablet PO 50 mcg DAILY ANUP Administration Pantoprazole Sodium 40 mg 12/22/22 09:00 12/24/22 08:[address] 40 Mg Tablet PO 40 mg DAILY ANUP Administration Polyethylene Glycol 17 gm 12/22/22 05:41 12/22/22 08:13 Polyethylene Glycol 3350 Pkt 17 Gm PO 17 gm DAILY PRN Administration CONSTIPATION PFSH Acute PFSH: Medical History (Updated 12/24/22 @ 12:41 by Rafa Shepherd DO) Atherosclerosis of coronary artery CAD (coronary artery disease) COPD (chronic obstructive pulmonary disease) CVA (cerebral vascular accident) Depression Elevated PSA Enlarged prostate GERD (gastroesophageal reflux disease) HTN (hypertension) Hypothyroid Osteoarthritis PAD (peripheral artery disease) Surgical History H/O carpal tunnel repair Hx of colonoscopy (03/06/21) Diverticulosis-10 years Family History Father , AT AGE 71 Myocardial infarction (lateral wall) Hyperlipidemia Brain tumor Mother , AT AGE 58 Hyperlipidemia Headache, migraine History of heart attack Brother Cancer COLON Social History Smoking and tobacco status: former smoker Alcohol intake: never Marital status: Life Partner Current occupational status: disabled History of recent travel: No Vitals/I&O/Wt Last Vital Signs Temp 97.7 F 12/24/22 11:17 Pulse 73 12/24/22 11:17 Resp 18 12/24/22 11:17 BP 135/89 12/24/22 11:17 Pulse Ox 97 12/24/22 11:17 O2 Del Method 12/24/22 11:17 12/23/22 12/24/22 12/24/22 22:59 06:59 14:59 Intake Total 1100 / 3340 240 / 3580 Balance 1100 / 3340 240 / 3580 Physical Exam Narrative: General : Patient is well developed , no acute distress, oriented x3 Head : Normal cephalic, evidence of fall on right face Ears : Pinnae and external canal are normal. Hearing is normal. Eyes : PERRLA, Sclera and injection are normal. No conjunctival discharge. Nose : Mucous membranes are without erythema. Throat : buccal mucosa is normal, gums are without significant recession or hypertrophy. Lungs : Equal chest rise bilaterally, no use of accessory muscles, trachea is midline. Cor : Rate and rhythm are normal. Abdomen : Soft, ND, NT, no g/r/m Back : non-tender to palpation, no CVA tenderness. Neuro : CN II - XII intact, Upper and lower extremities have equal and full strength Data 12/22/22 04:47 12/22/22 04:47 A&P Assessment and plan (1) Dysphagia: Plan EGD The risks and benefits of the procedure, including bleeding, infection, in testinal perforation requiring surgery, missed lesion were explained to the patient. The patient is understanding of the risks and wishes to proceed. Coding Level of Care Code Acute Code for Chg Fwd Diagnoses Dysphagia R13.10
--- NOTE | 2022-12-24 12:50 | ANES.PREANE2 ---
Pre-Anesthetic Assessment Height/Weight: Height 1.68 m Weight 48.081 kg Temp Pulse Resp BP Pulse Ox O2 Del Method 97.7 F 73 18 135/89 97 12/24/22 11:17 12/24/22 11:17 12/24/22 11:17 12/24/22 11:17 12/24/22 11:17 12/24/22 11:17 Preop Diagnosis: Worsening angina Operation Date: 12/24/22 12:45 Proposed Procedures p EGD(Not Applicable) - Rafa Shepherd DO Familial anesthetic complications: none Was Beta Beltran taken within 24 hours: N/A Was Clonidine taken within 24 hours: N/A Last Intake: 23:00 Social No alcohol (stop 2 yrs ago) and No tobacco (stop 2 years ago) Exam alert, oriented x 3, clear to auscultation bilaterally and regular rate & rhythm Airway Submandibular: within normal limits Cervical ROM: within normal limits Mallampati: Class I Dentition: false Comments: Comments: 5 very poor teeth on bottom Pulmonary Chronic Obstructive Pulmonary Disease CV/HEM Coronary Artery Disease and Hypertension None reported Hepatic None reported GI Gastroesophageal Reflux Disease Metabolic None reported Musc/skel Lower Back Pain and Osteoarthritis/DJD Neuropsych Cerebrovascular Accident (l side weakness) Anesthetic Plan ASA status: 3 Anesthesia: MAC Medications/Allergies Home Medications Medication Instructions Recorded Confirmed Last Taken Type fluticasone 250 mcg-salmeterol 50 1 inh inhalation BID 02/17/20 12/21/22 12/21/22 History mcg/dose blistr powdr for inhalation (Advair Diskus) fluticasone propionate 50 1 spray intranasal DAILY 02/17/20 12/21/22 12/21/22 History mcg/actuation nasal spray,suspension levothyroxine 50 mcg tablet 50 mcg PO DAILY 02/17/20 12/21/22 12/21/22 History omeprazole 20 mg capsule,delayed 20 mg PO BID 02/17/20 12/21/22 12/21/22 History release albuterol sulfate 90 mcg/actuation 2 puff inhalation Q6H PRN 06/04/21 12/21/22 Unknown History aerosol inhaler (ProAir HFA) Shortness Of Breath nitroglycerin 0.4 mg sublingual 0.4 mg sublingual Q5M PRN Chest 06/04/21 12/21/22 Unknown History tablet Pain psyllium husk (aspartame) 3.4 3.4 ea PO DAILY PRN Constipation 01/17/22 12/21/22 Unknown History gram/5.8 gram oral powder (Metamucil [facility] Fiber) clopidogrel 75 mg tablet (Plavix) 75 mg PO DAILY #90 tabs 07/08/22 12/21/22 12/21/22 Rx ipratropium 20 mcg-albuterol 100 1 puff inhalation Q6H 09/13/22 12/21/22 12/21/22 History mcg/actuation mist for inhalation (Combivent Respimat) isosorbide mononitrate 30 mg 15 mg PO BID #90 tabs 10/18/22 12/21/22 12/21/22 Rx tablet,extended release 24 hr amoxicillin 500 mg-potassium 1 tab PO BID #20 tabs 12/24/22 Unknown Rx clavulanate 125 mg tablet Allergies Allergy/AdvReac Type Severity Reaction Status Date / Time No Known Allergies Allergy Verified 12/21/22 13:10 Current Medications Generic Name Dose Route Start Last Admin Trade Name Freq PRN Reason Stop Dose Admin Acetaminophen 650 mg 12/21/22 15:50 12/22/22 12:52 Acetaminophen 325 Mg Tablet PO 650 mg Q6H PRN Administration Mild/Mod Pain Or Temp >/= 101 Albuterol/Ipratropium 3 ml 12/21/22 15:50 12/24/22 08:32 Ipratropium-Albuterol 3 Ml Neb INHALATION 3 ml Q6H PRN Administration SHORTNESS OF BREATH Atorvastatin Calcium 20 mg 12/21/22 20:45 12/23/22 21:10 Atorvastatin 40 Mg Tablet PO 20 mg BEDTIME ANUP Administration Citalopram Hydrobromide 10 mg 12/22/22 09:00 12/24/22 08:59 Citalopram 20 Mg Tablet PO 10 mg DAILY ANUP Administration Clindamycin HCl 300 mg 12/23/22 15:00 12/24/22 08:58 Clindamycin 150 Mg Capsule PO 300 mg TID ANUP Administration Protocol Clopidogrel Bisulfate 75 mg 12/22/22 09:00 12/24/22 08:59 Clopidogrel 75 Mg Tablet PO 75 mg DAILY ANUP Administration Heparin Sodium (Porcine) 5,000 unit 12/21/22 17:00 12/24/22 04:57 Heparin 5,000 Unit/Ml Inj 1 Ml SUBCUT 5,000 unit Q12H ANUP Administration Sodium Chloride 1,000 mls @ 75 mls/hr 12/21/22 16:00 12/24/22 05:43 Sodium Chloride 0.9% IV 75 mls/hr .[id number] ANUP Administration Sodium Chloride 1,000 mls @ 30 mls/hr 12/24/22 11:30 12/24/22 11:50 Sodium Chloride 0.9% IV 12/25/22 11:29 30 mls/hr .Q24H ANUP Administration Levothyroxine Sodium 50 mcg 12/22/22 09:00 12/24/22 08:59 Levothyroxine 50 Mcg Tablet PO 50 mcg DAILY ANUP Administration Pantoprazole Sodium 40 mg 12/22/22 09:00 12/24/22 08:[address] 40 Mg Tablet PO 40 mg DAILY ANUP Administration Polyethylene Glycol 17 gm 12/22/22 05:41 12/22/22 08:13 Polyethylene Glycol 3350 Pkt 17 Gm PO 17 gm DAILY PRN Administration CONSTIPATION PFSH Anesthesia Medical History (Updated 12/24/22 @ 12:41 by Rafa Shepherd DO) Atherosclerosis of coronary artery CAD (coronary artery disease) COPD (chronic obstructive pulmonary disease) CVA (cerebral vascular accident) Depression Elevated PSA Enlarged prostate GERD (gastroesophageal reflux disease) HTN (hypertension) Hypothyroid Osteoarthritis PAD (peripheral artery disease) Surgical History H/O carpal tunnel repair Hx of colonoscopy (03/06/21) Diverticulosis-10 years Family History Father , AT AGE 71 Myocardial infarction (lateral wall) Hyperlipidemia Brain tumor Mother , AT AGE 58 Hyperlipidemia Headache, migraine History of heart attack Brother Cancer COLON Social History Smoking and tobacco status: former smoker Alcohol intake: never Marital status: Life Partner Current occupational status: disabled History of recent travel: No Data Anesthesia 12/22/22 04:47 12/22/22 04:47 Cardiac Studies: Echocardiogram 12/22/22 Sestamibi Stress Test (Cardiology) 05/24/21
--- NOTE | 2022-12-24 16:11 | ANE.PACU2 ---
Inpatient post-anesthesia follow up: Airway intact: Yes Vital signs: Temperature 97.4 F Pulse Rate [Orthos tatic 91 Standing] Pulse Rate [Orthos tatic 90 Sitting] Pulse Rate [Orthos tatic Lying] 85 Pulse Rate 79 Respiratory Rate 16 Blood Pressure [Or thostatic 125/69 Standing] Blood Pressure [Or thostatic 116/77 Sitting] Blood Pressure [Or thostatic 121/78 Lying] Blood Pressure 107/70 Pulse Oximetry 98 Oxygen Delivery Me thod Room Air Oxygen Flow Rate 3 Fraction of Inspir ed Oxygen Hydration adequate: Yes Nausea and vomiting: No Pain level: 1 Mental status: Baseline
== END 2022-12-24 15:30 | disposition home or self-care (01) ==
LOC: ER 15:43 → CSU 16:13 → MEDSURG 12-23 06:04
PROVIDERS: Surgery; Admitting Provider Internal Medicine; Emergency Provider Family Medicine; PCP Nurse Practitioner Family; Visit Provider Internal Medicine
PROC: 0DJ08ZZ Inspection of Upper Intestinal Tract, Via Natural or Artificial Opening Endoscopic (ICD-10-PCS; CPT 43235; principal; 2022-12-24 12:45)
DX: R55 Syncope and collapse (principal); R63.4 Abnormal weight loss; Z68.1 Body mass index [BMI] 19.9 or less, adult; K29.50 Unspecified chronic gastritis without bleeding; I10 Essential (primary) hypertension; R13.10 Dysphagia, unspecified; I25.10 Atherosclerotic heart disease of native coronary artery without angina pectoris; J44.9 Chronic obstructive pulmonary disease, unspecified; N40.1 Benign prostatic hyperplasia with lower urinary tract symptoms; N13.8 Other obstructive and reflux uropathy; Z80.42 Family history of malignant neoplasm of prostate; K21.9 Gastro-esophageal reflux disease without esophagitis; Z79.02 Long term (current) use of antithrombotics/antiplatelets; I73.9 Peripheral vascular disease, unspecified; E03.9 Hypothyroidism, unspecified; M19.90 Unspecified osteoarthritis, unspecified site; Z87.891 Personal history of nicotine dependence; F03.90 Unspecified dementia, unspecified severity, without behavioral disturbance, psychotic disturbance, mood disturbance, and anxiety
CPT/HCPCS: 12345; 36415; 36416; 43239; 70450; 70486; 70491; 71045; 72125; 74177; 74230; 80048; 80053; 81003; 82607; 82962; 83735; 84100; 84145; 84439; 84443; 85025; 88305; 88342; 92507; 92523; 92526; 92610; 92611; 93005; 93306; 93880; 94640; 96372; 97110; 97116; 97161; 97165; 99285; G0378; J1644; J2704; J7030; Q9967

== ENCOUNTER 2023-01-06 06:00 | Outpatient (RCR) | payer MEDICARE, MEDICAID, SELFPAY | END 2023-01-14 23:59 | disposition home or self-care (01) | LOC: APT 06:00 | PROVIDERS: PCP Nurse Practitioner Family; Visit Provider Internal Medicine | DX: I63.9 Cerebral infarction, unspecified (principal); J44.9 Chronic obstructive pulmonary disease, unspecified; M79.671 Pain in right foot; M79.672 Pain in left foot | CPT/HCPCS: 97110; 97162 ==

== ENCOUNTER → 2023-01-13 08:41 | Outpatient (BNVA) | payer MEDICARE, MEDICAID, SELFPAY | PROVIDERS: PCP Nurse Practitioner Family; Visit Provider Podiatrist Foot & Ankle Surgery | DX: I73.9 Peripheral vascular disease, unspecified (principal); E11.8 Type 2 diabetes mellitus with unspecified complications; L60.8 Other nail disorders; B35.1 Tinea unguium | CPT/HCPCS: 11721 ==

== ENCOUNTER 2023-01-15 06:00 | Outpatient (RCR) | payer MEDICARE, MEDICAID, SELFPAY | END 2023-02-14 23:59 | disposition home or self-care (01) | LOC: AST 06:00 | PROVIDERS: PCP Nurse Practitioner Family; Visit Provider Internal Medicine | DX: R13.10 Dysphagia, unspecified (principal); R63.4 Abnormal weight loss | CPT/HCPCS: 92526; 92610 ==

== ENCOUNTER 2023-01-15 06:00 | Outpatient (RCR) | payer MEDICARE, MEDICAID, SELFPAY | END 2023-02-14 23:59 | disposition home or self-care (01) | LOC: APT 06:00 | PROVIDERS: PCP Nurse Practitioner Family; Visit Provider Internal Medicine | DX: I63.9 Cerebral infarction, unspecified (principal); J44.9 Chronic obstructive pulmonary disease, unspecified; M79.671 Pain in right foot; M79.672 Pain in left foot | CPT/HCPCS: 97110; 97112 ==

== ENCOUNTER 2023-01-17 15:18 | Outpatient (CLI) | payer MEDICARE, MEDICAID, SELFPAY ==
--- NOTE | 2023-01-17 | CTR_ITS ---
PROCEDURE INFORMATION: Exam: CT Abdomen Without And With Contrast Exam date and time: 01/17/2023 4:35 PM Age: 67 years old Clinical indication: Other: Unexplained weight loss TECHNIQUE: Imaging protocol: Computed tomography of the abdomen without and with contrast. Radiation optimization: All CT scans at this facility use at least one of these dose optimization techniques: automated exposure control; mA and/or kV adjustment per patient size (includes targeted exams where dose is matched to clinical indication); or iterative reconstruction. Contrast material: OMNI 350; Contrast volume: 95 ml; Contrast route: INTRAVENOUS (IV); REPORTING DATA: Count of CT and Cardiac NM exams in prior 12 months: This patient has received 6 known CTs and 0 known cardiac nuclear medicine studies in the 12 months prior to the current study. COMPARISON: CT abdomen pelvis w con* [id number] 12/22/2022 4:35 PM RADIATION DOSE METRICS: Total DLP (mGy-cm): 372.51 FINDINGS: Lungs: There is a calcified granuloma in the right middle lobe. There is decreased tree-in-bud opacity in the anterior left lower lobe since 12/22/2022. Liver: The liver is normal. Gallbladder and bile ducts: The gallbladder is normal. There is no biliary dilation. Pancreas: The pancreas is unremarkable. Spleen: Splenic size is normal. There are scattered calcifications consistent with healed granulomas. Adrenal glands: The adrenal glands are unremarkable. Kidneys and ureters: The kidneys are unremarkable. No hydronephrosis or stones. No ureteral dilation. Stomach and bowel: The stomach is decompressed, preventing meaningful evaluation of wall thickness. Visible small bowel is nondilated. The visible portion of colon is stool distended. There is no sign inflammation. Intraperitoneal space: There is no intraperitoneal free air. Vasculature: There is moderate aortic atherosclerotic disease. The portal, splenic and superior mesenteric veins are patent. There are small gastric varices. Lymph nodes: No mesenteric or retroperitoneal lymphadenopathy. Bones/joints: Bones are unremarkable. Soft tissues: The abdominal wall is intact. CT/CT abdomen wo/w con [id number] IMPRESSION: 1. No acute intra-abdominal findings. 2. Decreased tree-in-bud opacity in the left lower lobe since 12/22/2022 suggests resolving infectious bronchiolitis. 3. Small gastric varices. Patent portal vein. No sign of cirrhosis. No other sign of portal hypertension. 4. Incidental findings above.
--- NOTE | 2023-01-17 | CT_ITS ---
WS: [id number] CT HEAD TECHNIQUE: Noncontrast and contrast-enhanced CT of the head. CLINICAL INFORMATION: AMS COMPARISON: CT December 21, 2022 DLP: 1061.[address] scans at [facility] use at least one of these dose optimization techniques: automated e xposure control; mA and/or kV adjustment per patient size (includes targeted exams where dose is matc hed to clinical indication); or iterative reconstruction. FINDINGS: No evidence of intracranial hemorrhage or mass effect. Moderate small vessel changes. Moderate parenchymal volume loss. Chronic lacunar infarcts in the bila teral basal ganglia. This is similar to previous. Chronic lacunar infarcts in the RIGHT cerebellum. I ntracranial vascular calcification. Opacification of the RIGHT maxillary sinus. Fluid in the LEFT max illary sinus. Mastoid air cells well aerated. CT/CT head wo/w con [id number] IMPRESSION: 1. No evidence of intracranial hemorrhage or mass effect. 2. Moderate small vessel changes with moderate parenchymal volume loss. 3. Chronic lacunar infarcts in the bilateral basal ganglia. 4. No abnormal intracranial enhancement. 5. Opacification partially visualized RIGHT greater than LEFT maxillary sinuse s.
[2023-01-17] MEDS: iohexol 350 mg/mL 500 mL Btl (per mL) IV (16:03)
== END 2023-01-17 15:19 | disposition home or self-care (01) ==
LOC: RAD 15:18
PROVIDERS: PCP Nurse Practitioner Family; Visit Provider Nurse Practitioner Family
DX: I63.81 Other cerebral infarction due to occlusion or stenosis of small artery (principal); I86.4 Gastric varices; R41.82 Altered mental status, unspecified; R63.4 Abnormal weight loss
CPT/HCPCS: 70470; 74170; Q9967

== ENCOUNTER → 2023-01-27 11:22 | Outpatient (BNVA) | payer MEDICARE, MEDICAID, SELFPAY | PROVIDERS: PCP Nurse Practitioner Family; Referring Provider Nurse Practitioner Family; Visit Provider Specialist | DX: G30.9 Alzheimer's disease, unspecified (principal); R63.4 Abnormal weight loss; I69.322 Dysarthria following cerebral infarction; F02.C0 Dementia in other diseases classified elsewhere, severe, without behavioral disturbance, psychotic disturbance, mood disturbance, and anxiety; Z68.1 Body mass index [BMI] 19.9 or less, adult; Z87.891 Personal history of nicotine dependence | CPT/HCPCS: 36415; 83516; 83519; 96116; 99205 ==

== ENCOUNTER 2023-02-02 10:36 | Emergency (ER) | payer MEDICARE, MEDICAID, SELFPAY ==
[2023-02-02 10:40] VITALS: BP 130/77; PULSE 77; RESP 15; O2SAT 99
--- NOTE | 2023-02-02 10:54 | ED_ITS ---
HPI - Syncope General: Chief Complaint: Syncope Stated Complaint: SYNCOPE Time Seen by Provider: 02/02/23 10:45 Source: patient Mode of arrival: ambulatory Limitations: no limitations History of Present Illness: 67-year-old male had a history of stroke in the past he had some difficulty swallowing since his stroke he was eaten biscuits and gravy this morning and had a choking episode that he performed the Heimlich and then he had a syncopal event he was concerned as he has not passed out in the past. He denies any chest pain he states he feels back to normal currently has not had any difficulty swallowing currently denies abdominal pain or shortness of breath. Associated symptoms: Deny abdominal pain, fever(s), headache(s) or nausea Review of Systems Const: Denies: fever(s), chills, body aches or change in appetite Eyes: Denies: blurry vision or eye discomfort ENMT: Denies: throat pain or dental pain Card: Reports: syncope Resp: Denies: dyspnea GI: Denies: abdominal pain, nausea, vomiting or diarrhea : Denies: dysuria Musc: Denies: neck pain or back pain Skin/Breast: Denies: rash Neuro: Denies: headache(s) Psych: Denies: depression Jack/Lymph: Denies: easy bruising All/Imm: Denies: urticaria PFSH ED PFSH: Medical History Atherosclerosis of coronary artery BPH loc w urin obs/LUTS CAD (coronary artery disease) COPD (chronic obstructive pulmonary disease) CVA (cerebral vascular accident) Depression Dysphagia Elevated PSA Encephalopathy Enlarged prostate Facial swelling Family history of prostate cancer GERD (gastroesophageal reflux disease) HTN (hypertension) Hypothyroid Osteoarthritis PAD (peripheral artery disease) Recent unexplained weight loss Sinusitis, maxillary, chronic Vasovagal syncope Surgical History H/O carpal tunnel repair Hx of colonoscopy (03/06/21) Diverticulosis-10 years Family History Father , AT AGE 71 Myocardial infarction (lateral wall) Hyperlipidemia Brain tumor Mother , AT AGE 58 Hyperlipidemia Headache, migraine History of heart attack Brother Cancer COLON Social History Smoking and tobacco status: former smoker Alcohol intake: never Marital status: Life Partner Current occupational status: disabled Physical Exam Const: COMMON NORMALS: no acute distress, patient oriented x3 and healthy ap pearing HENMT: COMMON NORMALS: normocephalic and atraumatic HEAD & SCALP: normocephalic and atraumatic Eye: COMMON NORMALS: Equal, round and reactive pupils present and EOMs intact bilaterally PUPIL: Yes Equal, round and reactive pupils present Neck/C-Spine: COMMON NORMALS: full ROM and supple Chest: COMMONS NORMALS: normal inspection of the chest and normal palpation of entire chest wall Resp: COMMON NORMALS: normal respiratory effort, No retractions, No use of accessory muscles and clear to auscultation bilaterally AUSCULTATION: clear to auscultation bilaterally Cardio: COMMON NORMALS: regular rate, regular rhythm and No murmurs present (Cardio) RATE: regular rate RHYTHM: regular rhythm GI: COMMON NORMALS: Normal to inspection, nondistended, normoactive bowel sounds present, Soft to palpation, non-tender and no masses PALPATION: Yes Soft to palpation Extremity: COMMON NORMALS: normal to inspection and full ROM Neuro: COMMON NORMALS: patient oriented x3, moves all extremities and no focal motor deficits Psych: COMMON NORMALS: mental status grossly normal, Normal thought process pr esent and cooperative THOUGHT PROCESS: Normal thought process present Skin: COMMON NORMALS: no rashes or lesions noted and no wounds GENERAL SKIN EXAM: no rashes or lesions noted Course Vital Signs: Vital signs: Vital Signs Pulse Rate 77 02/02/23 10:40 Respiratory Rate 15 02/02/23 10:40 Blood Pressure 130/77 02/02/23 10:40 Pulse Oximetry 99 02/02/23 10:40 Oxygen Delivery Me thod 02/02/23 10:40 MDM - Syncope Medical Decision Making Patient presents here with a syncopal event likely from his choking episode he has been well-appearing here heart enzymes are normal blood works normal he has been able to tolerate liquids here no signs of esophageal foreign body he is stable for discharge he is to follow-up his PCP and return if worsening. Lab Data 02/02/23 11:05 02/02/23 11:05 Radiology Impressions Chest X-Ray 02/02/23 11:04 IMPRESSION: No acute findings. Laboratory Results WBC 15.7 10^3/uL (4.0-10.0) H 02/02/23 11:05 RBC 4.34 10^6/uL (4.1-5.3) 02/02/23 11:05 Hgb 13.3 g/dL (11.7-16.6) 02/02/23 11:05 Hct 39.8 % (42.0-52.0) L 02/02/23 11:05 MCV 91.7 fl (80-94) 02/02/23 11:05 MCH 30.6 pg (28.0-34.0) 02/02/23 11:05 MCHC 33.4 g/dL (30.0-36.0) 02/02/23 11:05 RDW 13.2 % (12.1-15.1) 02/02/23 11:05 Plt Count 224 10^3/cmm (130-400) 02/02/23 11:05 MPV 9.6 fL (7.4-10.4) 02/02/23 11:05 Neut % (Auto) 88.1 % 02/02/23 11:05 Lymph % (Auto) 7.5 % 02/02/23 11:05 [place] % (Auto) 3.4 % 02/02/23 11:05 Eos % (Auto) 0.1 % 02/02/23 11:05 Baso % (Auto) 0.3 % 02/02/23 11:05 Neut # (Auto) 13.88 10^3/uL (1.8-7.7) H 02/02/23 11:05 Lymph # (Auto) 1.2 10^3/uL (0.8-4.8) 02/02/23 11:05 [place] # (Auto) 0.5 10^3/uL (0.2-0.9) 02/02/23 11:05 Eos # (Auto) 0.0 10^3/uL (0.0-0.8) 02/02/23 11:05 Baso # (Auto) 0.0 10^3/uL (0.0-0.1) 02/02/23 11:05 Nucleated RBC % (auto) 0 % 02/02/23 11:05 Nucleated RBCs # 0.0 /100WBC 02/02/23 11:05 Sodium 137 mmol/L (136-145) 02/02/23 11:05 Potassium 4.2 mmol/L (3.5-5.1) 02/02/23 11:05 Chloride 101 mmol/L (98-107) 02/02/23 11:05 Carbon Dioxide 28 mmol/L (22-29) 02/02/23 11:05 Anion Gap 12.2 (5-19) 02/02/23 11:05 BUN 14 mg/dL (8-23) 02/02/23 11:05 Creatinine 0.9 mg/dL (0.7-1.2) 02/02/23 11:05 GFR Calculation 84.2 mL/min (90-130) L 02/02/23 11:05 Glucose 110 mg/dL (65-115) 02/02/23 11:05 Calculated Osmolality 285 mOsm/kg (285-295) 02/02/23 11:05 Calcium 8.7 mg/dL (8.5-10.5) 02/02/23 11:05 Total Bilirubin 0.9 mg/dL (0.15-1.2) 02/02/23 11:05 AST 18 U/L (0-40) 02/02/23 11:05 ALT 10 U/L (0-41) 02/02/23 11:05 Alkaline Phosphatase 55 U/L (40-130) 02/02/23 11:05 Troponin T Baseline 19 ng/L (0-15) H 02/02/23 11:05 Troponin T 120 Minute 18.75 ng/L (0-15) H 02/02/23 13:13 Delta Troponin T -0.25 ABS# (0-10) L 02/02/23 13:13 Total Protein 6.2 g/dL (6.6-8.7) L 02/02/23 11:05 Albumin 3.6 g/dL (3.5-5.2) 02/02/23 11:05 Globulin 2.6 g/dL (1.3-4.6) 02/02/23 11:05 Urine Color Yellow (Yellow) 02/02/23 13:08 Urine Appearance Clear (CLEAR) 02/02/23 13:08 Urine pH 8 (5-7) H 02/02/23 13:08 Ur Specific [place] 1.010 (1.005-1.030) 02/02/23 13:08 Urine Protein Trace (Negative) 02/02/23 13:08 Urine Glucose (UA) Norm (Normal) 02/02/23 13:08 Urine Ketones 1+ (Negative) H 02/02/23 13:08 Urine Blood 3+ (Negative) H 02/02/23 13:08 Urine Nitrate Negative (Negative) 02/02/23 13:08 Urine Bilirubin Neg (Negative) 02/02/23 13:08 Prot Sulfosalicylic Acd Negative (Negative) 02/02/23 13:08 Urine Urobilinogen 4 mg/dL (Negative) H 02/02/23 13:08 Ur Leukocyte Esterase Negative (Negative) 02/02/23 13:08 Urine RBC 15-25 /hpf (0-2) H 02/02/23 13:08 Urine WBC 5-10 /hpf (0-5) H 02/02/23 13:08 Ur Squamous Epith Cells None /hpf (0-5) 02/02/23 13:08 Amorphous Sediment Not Reportable 02/02/23 13:08 Urine Bacteria 1+ /hpf (NONE) H 02/02/23 13:08 EKG Data EKG 1: I personally reviewed and interpreted this EKG as follows: EKG interpretation date: 02/02/23 EKG interpretation time: 11:03 Interpretation: nsr hr [address] or t wave abnormalities qrs 82 qtc 418 EKG 2: I personally reviewed and interpreted this EKG as follows: EKG interpretation date: 02/02/23 EKG interpretation time: 13:25 Interpretation: nsr hr [address] or t wave abnormalities qrs 84 qtc 430 Discharge Plan Discharge Patient Disposition: Home Clinical Impression: Syncope, Choking episode Condition: Stable Prescriptions: No Action fluticasone propion-salmeterol [Advair Diskus] 250-50 mcg/dose blister with device 1 inh INHALATION BID fluticasone propionate 50 mcg/actuation spray,suspension 1 spray INTRANASAL DAILY omeprazole 20 mg capsule,delayed release(DR/EC) 20 mg PO BID levothyroxine 50 mcg tablet 50 mcg PO DAILY nitroglycerin 0.4 mg tablet, sublingual 0.4 mg sublingual Q5M PRN (Reason: Chest Pain) Rx Instructions: do not exceed 3 doses per episode albuterol sulfate [ProAir HFA] 90 mcg/actuation HFA aerosol inhaler 2 puff inhalation Q6H PRN (Reason: Shortness Of Breath) Metamucil [facility] Fiber 3.4 gram/5.8 gram powder 3.4 ea PO DAILY PRN (Reason: Constipation) memantine [Namenda Titration Kaden] 5-10 mg tablets,dose pack See Rx Instructions PO PER PKG DIR Qty: 49 0RF Rx Instructions: PO PER PKG DIR memantine [Namenda] 10 mg tablet 10 mg PO BID Qty: 180 1RF Rx Instructions: TAKE ONE 10mg TABLET IN THE AM AND ONE 10mg TABLET IN THE PM. Combivent Respimat 20-100 mcg/actuation mist 1 puff inhalation Q6H Plavix 75 mg tablet 75 mg PO DAILY Qty: 90 2RF isosorbide mononitrate 30 mg tablet extended release 24 hr 15 mg PO BID Qty: 90 3RF amoxicillin-pot clavulanate 500-125 mg tablet 1 tab PO BID Qty: 20 0RF omeprazole 20 mg tablet,delayed release (DR/EC) 20 mg PO BID 56 Days Qty: 112 0RF Discharge Orders: Discharge ED (Routine); Ordered 02/02/23 Ordered By: Tenzin Musa Referrals: Unruly Hernandez NP [Primary Care Provider] - Discharge Diet: Advance as tolerated Discharge Activity: Resume usual activity Patient Instructions: Choking, Syncope (ED) Coding Level of Care Code ED Fugitive Investigator for Jose M Cotto
--- NOTE | 2023-02-02 11:03 | ECG_ITS ---
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
--- NOTE | 2023-02-02 11:04 | XRR_ITS ---
PROCEDURE INFORMATION: Exam: XR Chest Exam date and time: 02/02/2023 11:12 AM Age: 67 years old Clinical indication: Pain; Chest pressure; Additional info: Cp TECHNIQUE: Imaging protocol: Radiologic exam of the chest. Views: 1 view. COMPARISON: CR (CHEST, ) 12/21/2022 1:57 PM FINDINGS: Lungs: There are calcified granulomas in the right lower lobe. There is no consolidation. Left lung is clear. Pleural spaces: There is no pleural effusion or pneumothorax. Heart/Mediastinum: Cardiomediastinal contours are unremarkable. Bones/joints: Bones are unremarkable. XR/XR chest 1V portable [id number] IMPRESSION: No acute findings.
[2023-02-02 11:16] LABS: Basophils % 0.3 %; Eosinophils % 0.1 %; Hematocrit 39.8 % (42.0-52.0); Hemoglobin 13.3 g/dL (11.7-16.6); Lymphocytes # 1.2 10^3/uL (0.8-4.8); Lymphocytes % 7.5 %; Mean Corpuscular HGB Conc 33.4 g/dL (30.0-36.0); Mean Corpuscular Hemoglobin 30.6 pg (28.0-34.0); Mean Corpuscular Volume 91.7 fl (80-94); Mean Platelet Volume 9.6 fL (7.4-10.4); Monocytes # 0.5 10^3/uL (0.2-0.9); Monocytes % 3.4 %; Neutrophils # 13.88 10^3/uL (1.8-7.7); Neutrophils % 88.1 %; Nucleated Red Blood Cells % 0 %; Platelet Count 224 10^3/cmm (130-400); Red Blood Count 4.34 10^6/uL (4.1-5.3); Red Cell Distribution Width 13.2 % (12.1-15.1); White Blood Count 15.7 10^3/uL (4.0-10.0)
[2023-02-02 11:36] LABS: Alanine Aminotransferase 10 U/L (0-41); Albumin Level 3.6 g/dL (3.5-5.2); Alkaline Phosphatase 55 U/L (40-130); Anion Gap 12.2 (5-19); Aspartate Amino Transferase 18 U/L (0-40); Blood Urea Nitrogen 14 mg/dL (8-23); Calcium 8.7 mg/dL (8.5-10.5); Carbon Dioxide 28 mmol/L (22-29); Chloride 101 mmol/L (98-107); Globulin 2.6 g/dL (1.3-4.6); Glomerular Filtration Rate 84.2 mL/min (90-130); Glucose 110 mg/dL (65-115); Osmolality Calculated 285 mOsm/kg (285-295); Potassium 4.2 mmol/L (3.5-5.1); Sodium 137 mmol/L (136-145); Total Bilirubin 0.9 mg/dL (0.15-1.2); Total Protein 6.2 g/dL (6.6-8.7)
[2023-02-02 11:37] LABS: Troponin(5th) Baseline 19 ng/L (0-15)
--- NOTE | 2023-02-02 13:25 | ECG_ITS ---
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
[2023-02-02 13:51] LABS: Urine Appearance Clear (CLEAR); Urine Color Yellow (Yellow); pH Urine 8 (5-7)
[2023-02-02 13:52] LABS: Add Urine Microscopic? YES; Bilirubin Urine Neg (Negative); Blood Urine 3+ (Negative); Glucose Urine UA Norm (Normal); Ketones Urine 1+ (Negative); Leukocyte Esterase Urine Negative (Negative); Nitrate Urine Negative (Negative); Protein Urine Trace (Negative); Urobilinogen Urine 4 mg/dL (Negative)
[2023-02-02 13:53] LABS: Add Urine Culture? Yes; Bacteria Urine 1+ /hpf; RBC Urine 15-25 /hpf (0-2); Sulfosalicylic Acid Urine Negative (Negative)
[2023-02-02 13:55] LABS: Troponin 5 2HR 18.75 ng/L (0-15)
[2023-02-02 13:56] LABS: Troponin 5 2HR Delta -0.25 ABS# (0-10)
[2023-02-02 14:15] VITALS: PULSE 66; RESP 16; O2SAT 99
== END 2023-02-02 14:17 | disposition home or self-care (01) ==
PROVIDERS: Emergency Provider Emergency Medicine; PCP Nurse Practitioner Family
DX: R55 Syncope and collapse (principal); T17.928A Food in respiratory tract, part unspecified causing other injury, initial encounter; X58.XXXA Exposure to other specified factors, initial encounter; Z79.02 Long term (current) use of antithrombotics/antiplatelets; I25.10 Atherosclerotic heart disease of native coronary artery without angina pectoris; J44.9 Chronic obstructive pulmonary disease, unspecified; Z86.73 Personal history of transient ischemic attack (TIA), and cerebral infarction without residual deficits; I10 Essential (primary) hypertension; Z87.891 Personal history of nicotine dependence
CPT/HCPCS: 71045; 80053; 81001; 84484; 85025; 87086; 93005; 99285

== ENCOUNTER 2023-03-06 08:31 | Emergency (ER) | payer MEDICARE, MEDICAID, SELFPAY ==
[2023-03-06] VITALS (7 sets, daily range): BP systolic 90–105; BP diastolic 56–65; PULSE 86–92; RESP 16; TEMP 37.7; O2SAT 96–100; BMI 16.0
--- NOTE | 2023-03-06 08:34 | XRR_ITS ---
PROCEDURE INFORMATION: Exam: XR Soft Tissue Neck Exam date and time: 03/06/2023 8:55 AM Age: 67 years old Clinical indication: Dysphagia / difficulty swallowing; Patient HX: PT with AMS; Additional info: Foreign body TECHNIQUE: Imaging protocol: Radiologic exam of the soft tissues of the neck. COMPARISON: CT neck w con* [id number] 12/22/2022 4:40 PM FINDINGS: Airway: Normal. No abnormal narrowing. Soft tissues: Normal. Normal epiglottis. Bones/joints: The cervical spine demonstrates marked degenerative changes at multiple levels. XR/XR soft tissue neck [id number] IMPRESSION: 1. Negative exam for acute pathology. 2. No foreign body.
--- NOTE | 2023-03-06 08:34 | XRR_ITS ---
PROCEDURE INFORMATION: Exam: XR Chest Exam date and time: 03/06/2023 8:54 AM Age: 67 years old Clinical indication: Dyspnea; Additional info: Dyspnea/cough TECHNIQUE: Imaging protocol: Radiologic exam of the chest. Views: 1 view. COMPARISON: CR (CHEST, ) 02/02/2023 11:12 AM FINDINGS: Lungs: Unremarkable. No consolidation. Multiple small round right lung base granulomas. Pleural spaces: Unremarkable. No pleural effusion. No pneumothorax. Heart/Mediastinum: Unremarkable. No cardiomegaly. Bones/joints: Unremarkable. XR/XR chest 1V portable [id number] IMPRESSION: No acute findings.
--- NOTE | 2023-03-06 08:39 | ECG_ITS ---
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 Measurements Intervals [place] Rate: 91 P: 77 NV: 132 QRS: 76 QRSD: 89 T: 67 QT: 357 QTc: 441 Interpretive Statements SINUS RHYTHM Compared to ECG 02/02/2023 13:25:17 No significant changes Electronically Signed On 03-07-2023 1:32:21 CDT by Marylu Barroso M.D. [id number]
--- NOTE | 2023-03-06 08:52 | CT_ITS ---
WS: [id number] CT ABDOMEN AND PELVIS NONCONTRAST HISTORY: Abdominal pain TECHNIQUE: Imaging performed through the abdomen and pelvis. Coronal and sagittal reformats are submi tted. All CT scans at [facility] use at least one of these dose optimization techniques: auto mated exposure control; mA and/or kV adjustment per patient size (includes targeted exams where dose is matched to clinical indication); or iterative reconstruction. DLP: 289.00 mGy.cm COMPARISON: 01/17/2023 Lack of contrast causes significant limitation especially as there is very little body fat. Lower thorax: Marked hyperexpansion opacification irregularly-shaped in the RIGHT middle lobe and at the RIGHT lung base. Minimal tree-in-bud airspace disease in the LEFT lower lobe is reidentified. Hea rt size is not enlarged. No hiatal hernia. Liver: Normal size liver. No mass or bile duct dilatation. Gallbladder: Normally distended. Pancreas: Not visualized well. No fat surrounding the pancreas. Spleen: Granulomatous. Normal size. Adrenal glands: Not visualized. Right kidney: Normal size kidney with no mass or hydronephrosis. Left kidney: Normal size kidney with no mass or hydronephrosis. Aorta: Moderate to severe atherosclerosis abdominal aorta. No aneurysm. Atherosclerosis continues int o the common iliac arteries. Lymph nodes would be difficult to exclude. There is no separation of the visceral organs and no visce ral fat. On a recent CT no adenopathy was identified. GI tract: Marked fluid distention of the stomach. Increased air throughout the colon. There are mild distention of the small bowel with fluid. Abdominal wall: Negative. No hernia. Pelvis: Vascular calcifications. Mildly enlarged urinary bladder. Prostate gland calcifications. Osseous structures: Unremarkable. CT/CT abdomen pelvis wo con [id number] IMPRESSION: 1. New opacifications RIGHT middle and RIGHT lower lobe with continued tree-in -bud airspace disease at the LEFT lung base. Consider aspiration pneumonia. 2. Marked constipation throughout the entire colon increased since the prior s tudy of 01/17/2023. 3. Marked fluid distention of the stomach. 4. Hepatic and splenic granulomatous.
--- NOTE | 2023-03-06 08:59 | ED_ITS ---
HPI - Dizziness General: Chief Complaint: Dizziness Stated Complaint: DYSPNEA/ POSSIBLY CHOKED ON PILLS Time Seen by Provider: 03/06/23 08:34 Source: patient Mode of arrival: ambulatory History of Present Illness: HPI Narrative: 67-year-old male presents this morning from home. Is difficult to elicit from him what exactly happened initial port we got from EMS that we with the [facility] the history he felt dizzy thought he was going to pass out there is a question of choking on his pills. He says he does not have any sensation of choking and he does not think that he choked on his pills. He does complain of chest and abdominal pain localizes the abdominal pain to the left lower quadrant. He has previously had a stroke appears to have some mild right-sided facial weakness and some persistent dysarthria. There are no family members at the bedside. He has some chest discomfort but denies any pain radiating to the neck or arms. Initial EKG shows a normal sinus rhythm with no acute changes. MD elicited complaint: dizziness and near syncope Onset (ago): hour(s) Timing: gradual onset Severity: mild Description: near-syncope Exacerbating factors: nothing Relieving factors: nothing Associated symptoms: Reports chest pain, malaise and nausea; Denies change in hearing, chills, cough, diaphoresis, ear discharge, ear pressure, fevers/chills, headache(s), nasal congestion, palpitations, rash, short of breath, syncope, tinnitus, vomiting, weakness or other Review of Systems Const: Reports: malaise; Denies: fever(s), chills or diaphoresis ENMT: Denies: ear discharge, change in hearing, tinnitus or nasal congestion Card: Reports: chest pain; Denies: palpitations or syncope Resp: Denies: dyspnea, productive cough or non-productive cough GI: Reports: abdominal pain and nausea; Denies: vomiting : Denies: flank pain, dysuria, urinary frequency or urinary urgency Skin/Breast: Denies: rash or pruritus Neuro: Denies: headache(s) PFSH ED PFSH: Medical History Atherosclerosis of coronary artery BPH loc w urin obs/LUTS CAD (coronary artery disease) COPD (chronic obstructive pulmonary disease) CVA (cerebral vascular accident) Depression Dysphagia Elevated PSA Encephalopathy Enlarged prostate Facial swelling Family history of prostate cancer GERD (gastroesophageal reflux disease) HTN (hypertension) Hypothyroid Osteoarthritis PAD (peripheral artery disease) Recent unexplained weight loss Sinusitis, maxillary, chronic Vasovagal syncope Surgical History H/O carpal tunnel repair Hx of colonoscopy (03/06/21) Diverticulosis-10 years Family History Father , AT AGE 71 Myocardial infarction (lateral wall) Hyperlipidemia Brain tumor Mother , AT AGE 58 Hyperlipidemia Headache, migraine History of heart attack Brother Cancer COLON Social History Smoking and tobacco status: former smoker Alcohol intake: never Marital status: Life Partner Current occupational status: disabled Physical Exam Const: GENERAL APPEARANCE: cooperative and comfortable ORIENTATION/C ONSCIOUSNESS: Yes awake, Yes oriented to person, Yes oriented to place and Yes oriented to time HENMT: COMMON NORMALS: normocephalic, atraumatic and hearing grossly normal bilaterally HEAD & SCALP: normocephalic and atraumatic Resp: COMMON NORMALS: normal respiratory effort, No retractions, No use of accessory muscles and clear to auscultation bilaterally AUSCULTATION: clear to auscultation bilaterally Cardio: COMMON NORMALS: regular rate, regular rhythm and No murmurs present (Cardio) RATE: regular rate RHYTHM: regular rhythm GI: COMMON NORMALS: Soft to palpation and No hepatosplenomegaly present AUSCULTATION: Yes normoactive bowel sounds PALPATION: Yes Soft to palpation, No Tenderness to palpation present (GI), No Guarding due to palpation present (GI) and Yes No hepatosplenomegaly present Extremity: COMMON NORMALS: normal to inspection, capillary refill normal, no clubbing, cyanosis or edema, no calf tenderness and no pedal edema Neuro: SENSORIUM/ORIENTATION: Yes oriented to person, Yes oriented to place and Yes oriented to time Skin: COMMON NORMALS: no rashes or lesions noted GENERAL SKIN EXAM: no ra shes or lesions noted Course Vital Signs: Vital signs: Vital Signs Temperature 99.9 F H 03/06/23 08:34 Pulse Rate 86 03/06/23 11:04 Respiratory Rate 16 03/06/23 08:34 Blood Pressure 99/57 03/06/23 12:33 Pulse Oximetry 100 03/06/23 12:33 Oxygen Delivery Me thod Room Air 03/06/23 11:04 MDM - Dizziness Medical Decision Making Labs imaging and EKGs reviewed. Cardiac enzymes are negative. Chest x-ray is negative. CT of the abdomen shows large amount of retained stool no other significant findings. We will discharge patient home. Recommended use lactulose to relieve his constipation and MiraLAX to prevent in the future follo w-up with his primary care doctor return if is further problems. Medical Records I reviewed the patient's medical records. Lab Data I reviewed the patient's lab results. 03/06/23 09:06 03/06/23 09:06 Radiology Impressions Chest X-Ray 03/06/23 08:34 IMPRESSION: No acute findings. Soft Tissue Neck X-Ray 03/06/23 08:34 IMPRESSION: 1. Negative exam for acute pathology. 2. No foreign body. Abdomen/Pelvis CT 03/06/23 08:52 IMPRESSION: 1. New opacifications RIGHT middle and RIGHT lower lobe with continued tree-in-bud airspace disease at the LEFT lung base. Consider aspiration pneumonia. 2. Marked constipation throughout the entire colon increased since the prior study of 01/17/2023. 3. Marked fluid distention of the stomach. 4. Hepatic and splenic granulomatous. Laboratory Results WBC 10.6 10^3/uL (4.0-10.0) H 03/06/23 09:06 RBC 4.38 10^6/uL (4.1-5.3) 03/06/23 09:06 Hgb 13.7 g/dL (11.7-16.6) 03/06/23 09:06 Hct 40.6 % (42.0-52.0) L 03/06/23 09:06 MCV 92.7 fl (80-94) 03/06/23 09:06 MCH 31.3 pg (28.0-34.0) 03/06/23 09:06 MCHC 33.7 g/dL (30.0-36.0) 03/06/23 09:06 RDW 13.2 % (12.1-15.1) 03/06/23 09:06 Plt Count 288 10^3/cmm (130-400) 03/06/23 09:06 MPV 9.3 fL (7.4-10.4) 03/06/23 09:06 Neut % (Auto) 86.2 % 03/06/23 09:06 Lymph % (Auto) 8.0 % 03/06/23 09:06 [place] % (Auto) 4.8 % 03/06/23 09:06 Eos % (Auto) 0.0 % 03/06/23 09:06 Baso % (Auto) 0.5 % 03/06/23 09:06 Neut # (Auto) 9.18 10^3/uL (1.8-7.7) H 03/06/23 09:06 Lymph # (Auto) 0.9 10^3/uL (0.8-4.8) 03/06/23 09:06 [place] # (Auto) 0.5 10^3/uL (0.2-0.9) 03/06/23 09:06 Eos # (Auto) 0.0 10^3/uL (0.0-0.8) 03/06/23 09:06 Baso # (Auto) 0.1 10^3/uL (0.0-0.1) 03/06/23 09:06 Nucleated RBC % (auto) 0 % 03/06/23 09:06 Nucleated RBCs # 0.0 /100WBC 03/06/23 09:06 Sodium 137 mmol/L (136-145) 03/06/23 09:06 Potassium 4.1 mmol/L (3.5-5.1) 03/06/23 09:06 Chloride 100 mmol/L (98-107) 03/06/23 09:06 Carbon Dioxide 27 mmol/L (22-29) 03/06/23 09:06 Anion Gap 14.1 (5-19) 03/06/23 09:06 BUN 16 mg/dL (8-23) 03/06/23 09:06 Creatinine 1.2 mg/dL (0.7-1.2) 03/06/23 09:06 GFR Calculation 60.4 mL/min (90-130) L 03/06/23 09:06 Glucose 108 mg/dL (65-115) 03/06/23 09:06 Calculated Osmolality 286 mOsm/kg (285-295) 03/06/23 09:06 Calcium 8.7 mg/dL (8.5-10.5) 03/06/23 09:06 Total Bilirubin 0.4 mg/dL (0.15-1.2) 03/06/23 09:06 AST 23 U/L (0-40) 03/06/23 09:06 ALT 16 U/L (0-41) 03/06/23 09:06 Alkaline Phosphatase 72 U/L (40-130) 03/06/23 09:06 Troponin T Baseline 29 ng/L (0-15) H 03/06/23 09:06 Troponin T 120 Minute 22.73 ng/L (0-15) H 03/06/23 11:45 Delta Troponin T -6.27 ABS# (0-10) L 03/06/23 11:45 Total Protein 6.8 g/dL (6.6-8.7) 03/06/23 09:06 Albumin 3.6 g/dL (3.5-5.2) 03/06/23 09:06 Globulin 3.2 g/dL (1.3-4.6) 03/06/23 09:06 Lipase 21 U/L (13-60) 03/06/23 09:06 Discharge Plan Discharge Patient Disposition: Home Clinical Impression: Constipation, Dysphagia Condition: Stable Prescriptions: New lactulose 20 gram/30 mL solution 30 ml PO Q2H 1 Days Qty: 360 0RF Rx Instructions: until desired laxative effect No Action fluticasone propion-salmeterol [Advair Diskus] 250-50 mcg/dose blister with device 1 inh INHALATION BID fluticasone propionate [Flonase Allergy Relief] 50 mcg/actuation spray,suspension 2 spray INTRANASAL DAILY omeprazole 20 mg capsule,delayed release(DR/EC) 20 mg PO BID levothyroxine 50 mcg tablet 50 mcg PO QAM nitroglycerin 0.4 mg tablet, sublingual 0.4 mg sublingual Q5M PRN (Reason: Chest Pain) Rx Instructions: do not exceed 3 doses per episode albuterol sulfate [ProAir HFA] 90 mcg/actuation HFA aerosol inhaler 2 puff inhalation Q6H PRN (Reason: Shortness Of Breath) Metamucil [facility] Fiber 3.4 gram/5.8 gram powder See Rx Instructions .ROUTE .COMPLEX Rx Instructions: 1 capful po qam memantine [Namenda] 10 mg tablet 10 mg PO BID Qty: 180 1RF Combivent Respimat 20-100 mcg/actuation mist 1 puff inhalation Q6H isosorbide mononitrate 30 mg tablet extended release 24 hr 15 mg PO BID Qty: 90 3RF Plavix 75 mg tablet 75 mg PO QAM Discharge Orders: Discharge ED (Routine); Ordered 03/06/23 Ordered By: Rigo Driver Referrals: Unruly Hernandez NP [Primary Care Provider] - Discharge Diet: Usual diet Discharge Activity: Resume usual activity Patient Instructions: Opioid Safety, Pain Management Activity Restrictions/Additional Instructions: You were seen today for difficulty with swallowing. Soft tissues of your neck were negative. Your chest x-ray and CT of your abdomen did not show anything acute, the CT of the abdomen did not show significant amount of constipation. Recommend that you use lactulose to relieve the immediate constipation MiraLAX to prevent constipation in the future. Keep the scheduled appointment to evaluate your swallowing difficulty. Coding Level of Care Code ED [employer] Consultant for Jose M Cotto
[2023-03-06 09:14] LABS: Basophils # 0.1 10^3/uL (0.0-0.1); Basophils % 0.5 %; Hematocrit 40.6 % (42.0-52.0); Hemoglobin 13.7 g/dL (11.7-16.6); Lymphocytes # 0.9 10^3/uL (0.8-4.8); Mean Corpuscular HGB Conc 33.7 g/dL (30.0-36.0); Mean Corpuscular Hemoglobin 31.3 pg (28.0-34.0); Mean Corpuscular Volume 92.7 fl (80-94); Mean Platelet Volume 9.3 fL (7.4-10.4); Monocytes # 0.5 10^3/uL (0.2-0.9); Monocytes % 4.8 %; Neutrophils # 9.18 10^3/uL (1.8-7.7); Neutrophils % 86.2 %; Nucleated Red Blood Cells % 0 %; Platelet Count 288 10^3/cmm (130-400); Red Blood Count 4.38 10^6/uL (4.1-5.3); Red Cell Distribution Width 13.2 % (12.1-15.1); White Blood Count 10.6 10^3/uL (4.0-10.0)
[2023-03-06] MEDS: sodium chloride 0.9% 1,000 ML 999 ML IV (09:19)
[2023-03-06 09:35] LABS: Alanine Aminotransferase 16 U/L (0-41); Albumin Level 3.6 g/dL (3.5-5.2); Alkaline Phosphatase 72 U/L (40-130); Anion Gap 14.1 (5-19); Aspartate Amino Transferase 23 U/L (0-40); Blood Urea Nitrogen 16 mg/dL (8-23); Calcium 8.7 mg/dL (8.5-10.5); Carbon Dioxide 27 mmol/L (22-29); Chloride 100 mmol/L (98-107); Globulin 3.2 g/dL (1.3-4.6); Glomerular Filtration Rate 60.4 mL/min (90-130); Glucose 108 mg/dL (65-115); Lipase 21 U/L (13-60); Osmolality Calculated 286 mOsm/kg (285-295); Potassium 4.1 mmol/L (3.5-5.1); Sodium 137 mmol/L (136-145); Total Bilirubin 0.4 mg/dL (0.15-1.2); Total Protein 6.8 g/dL (6.6-8.7)
[2023-03-06 09:37] LABS: Troponin(5th) Baseline 29 ng/L (0-15)
--- NOTE | 2023-03-06 10:53 | ECG_ITS ---
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 Measurements Intervals [place] Rate: 82 P: 73 TX: 140 QRS: 74 QRSD: 93 T: 67 QT: 383 QTc: 448 Interpretive Statements SINUS RHYTHM Compared to ECG 03/06/2023 08:39:47 No significant changes Electronically Signed On 03-07-2023 22:15:18 CDT by Marylu Barroso M.D. [id number]
--- NOTE | 2023-03-06 11:04 | PC.PHAR ---
pts verified pts medications-pts states the pts zocor 40mg daily was dced ext shows last filled 02/04/23 90d/s-pts states the pt has a combivent respimat and advair diskus inhalers ext doesnt show when last filled-
[2023-03-06 12:17] LABS: Troponin 5 2HR 22.73 ng/L (0-15)
[2023-03-06 12:19] LABS: Troponin 5 2HR Delta -6.27 ABS# (0-10)
== END 2023-03-06 13:05 | disposition home or self-care (01) ==
PROVIDERS: Emergency Provider Family Medicine; PCP Nurse Practitioner Family
DX: K59.00 Constipation, unspecified (principal); R13.10 Dysphagia, unspecified; Z79.02 Long term (current) use of antithrombotics/antiplatelets; Z87.891 Personal history of nicotine dependence; I25.10 Atherosclerotic heart disease of native coronary artery without angina pectoris; J44.9 Chronic obstructive pulmonary disease, unspecified; Z86.73 Personal history of transient ischemic attack (TIA), and cerebral infarction without residual deficits; I10 Essential (primary) hypertension
CPT/HCPCS: 36415; 70360; 71045; 74176; 80053; 83690; 84484; 85025; 93005; 96360; 99285; J7030

== ENCOUNTER → 2023-03-17 12:59 | Outpatient (BNVA) | payer MEDICARE, MEDICAID, SELFPAY | PROVIDERS: PCP Nurse Practitioner Family; Visit Provider Podiatrist Foot & Ankle Surgery | DX: I73.9 Peripheral vascular disease, unspecified (principal); B35.1 Tinea unguium | CPT/HCPCS: 11721 ==

== ENCOUNTER → 2023-03-24 13:12 | Outpatient (BNVA) | payer MEDICARE, MEDICAID, SELFPAY | PROVIDERS: PCP Nurse Practitioner Family; Visit Provider Internal Medicine Cardiovascular Disease | DX: I69.322 Dysarthria following cerebral infarction (principal); R63.4 Abnormal weight loss; G30.9 Alzheimer's disease, unspecified; F02.80 Dementia in other diseases classified elsewhere, unspecified severity, without behavioral disturbance, psychotic disturbance, mood disturbance, and anxiety; I73.9 Peripheral vascular disease, unspecified; R55 Syncope and collapse; Z87.891 Personal history of nicotine dependence; Z68.1 Body mass index [BMI] 19.9 or less, adult | CPT/HCPCS: 99215 ==

== ENCOUNTER → 2023-06-02 09:11 | Outpatient (BNVA) | payer OTHER, SELFPAY | PROVIDERS: PCP Nurse Practitioner Family; Referring Provider Specialist; Visit Provider Specialist | DX: G30.9 Alzheimer's disease, unspecified (principal); F02.80 Dementia in other diseases classified elsewhere, unspecified severity, without behavioral disturbance, psychotic disturbance, mood disturbance, and anxiety; I69.322 Dysarthria following cerebral infarction; Z87.891 Personal history of nicotine dependence; R63.4 Abnormal weight loss; Z68.1 Body mass index [BMI] 19.9 or less, adult; K59.00 Constipation, unspecified | CPT/HCPCS: 36415; 74018; 82550; 83516; 83519; 99214 ==

== ENCOUNTER → 2023-06-30 14:45 | Outpatient (BNVA) | payer MEDICARE, MEDICAID, SELFPAY | PROVIDERS: PCP Nurse Practitioner Family; Visit Provider Surgery | DX: E46 Unspecified protein-calorie malnutrition (principal); R13.10 Dysphagia, unspecified; G30.9 Alzheimer's disease, unspecified; F02.80 Dementia in other diseases classified elsewhere, unspecified severity, without behavioral disturbance, psychotic disturbance, mood disturbance, and anxiety; R63.4 Abnormal weight loss | CPT/HCPCS: 99204; 99214 ==

== ENCOUNTER → 2023-07-14 08:21 | Outpatient (BNVA) | payer MEDICARE, MEDICAID, SELFPAY | PROVIDERS: PCP Nurse Practitioner Family; Visit Provider Podiatrist Foot & Ankle Surgery | DX: B35.1 Tinea unguium (principal); I73.9 Peripheral vascular disease, unspecified | CPT/HCPCS: 11721 ==